=== PATIENT | female | born 1960 | race Caucasian/White ===

== ENCOUNTER → 2023-12-31 09:10 | Outpatient (REF) | payer BC, SELFPAY ==
[2023-12-31 09:27] VITALS: BP 128/64; BP_SYST 104
[2023-12-31 10:30] VITALS: BP 120/63; BP_SYST 103
[2023-12-31 10:42] VITALS: BP 120/63
[2023-12-31 11:44] LABS: Body Fluid Mononuclear 93.7 %; Body Fluid Polymorphonuclear 6.3 %; Body Fluid WBC 110 /CUMM
[2023-12-31 11:58] LABS: Body Fluid Second Tech SD
== END ==
LOC: RADI 09:10
PROVIDERS: ATTENDING PHYSICIAN Internal Medicine Gastroenterology; FAMILY PHYSICIAN Internal Medicine; REFERRING PHYSICIAN Internal Medicine Cardiovascular Disease
DX: R18.8 Other ascites (principal)
CPT/HCPCS: 49083; 89051

== ENCOUNTER → 2024-01-19 09:29 | Outpatient (REF) | payer BC, SELFPAY ==
[2024-01-19 09:50] LABS: % Basophils 1.3 % (0-2); % Eosinophils 6.4 % (0-6); % Immature Granulocytes 0.4 % (0-0.5); % Lymphocytes 16.7 % (20.5-51.1); % Monocytes 9.3 % (1.7-9.3); % Neutrophils 65.9 % (42.2-75.2); Absolute Basophils 0.1 10^3/uL (0-0.2); Absolute Eosinophils 0.5 10^3/uL (0-0.7); Absolute Lymphocytes 1.4 10^3/uL (1.2-3.4); Absolute Monocytes 0.8 10^3/uL (0.1-0.6); Absolute Neutrophils 5.4 10^3/uL (1.4-6.5); Hematocrit 24.6 % (37.0-47.0); Hemoglobin 7.7 g/dL (12.0-16.0); Mean Corp Hgb Conc. 31.3 g/dL (33.0-37.0); Mean Corpuscular Hgb 25.7 pg (27.0-31.0); Mean Platelet Volume 9.2 fL (7.4-10.4); Nucleated Red Blood Cells % 0 %; Platelet Count 212 10^3/uL (130-400); Red Cell Dist. Width 17.4 % (11.5-14.5); White Blood Cell Count 8.2 10^3/uL (4.8-10.8)
[2024-01-19 10:16] LABS: Blood Urea Nitrogen 16 mg/dl (7-17); Calcium 9.4 mg/dl (8.4-10.2); Carbon Dioxide 25 mmol/L (22-30); Chloride 106 mmol/L (98-107); Glucose 127 mg/dl (70-99); Iron 36 ug/dl (37-170); Potassium 3.7 mmol/L (3.5-5.1); Sodium 135 mmol/L (135-145); eGFR > 60.00
[2024-01-19 10:25] LABS: Percent Saturation 9 % (20-50); Total Iron Binding Capacity 400 ug/dl (265-497)
== END ==
LOC: REG 09:29
PROVIDERS: ATTENDING PHYSICIAN Internal Medicine Gastroenterology; FAMILY PHYSICIAN Internal Medicine; REFERRING PHYSICIAN Internal Medicine Hematology & Oncology
DX: D50.9 Iron deficiency anemia, unspecified (principal); D47.2 Monoclonal gammopathy; K74.60 Unspecified cirrhosis of liver
CPT/HCPCS: 36415; 80048; 82728; 83540; 83550; 85025

== ENCOUNTER 2024-01-22 15:36 | Emergency (ER) | payer BC, SELFPAY ==
[2024-01-22 15:45] VITALS: BP 140/57
--- NOTE | 2024-01-22 16:54 | ED.GENMED ---
History of Present Illness
General
Chief Complaint: Abdominal Symptoms
Time Seen by Provider: 01/22/24 16:54
Travel History
Have you had any contact with someone who has COVID-19?: No
Do you have any symptoms of coronavirus? Fever > 100 degrees, chills, cough, shortness of breath, sore throat, loss of taste or smell, muscle aches, or headache?: No
History of Present Illness
History of Present Illness:
HPI: The patient presents with abdominal discomfort. She has a sensation of bloating which feels very similar to the time that she has required paracentesis for ascites. She has a history of FONG. She is also chronically anemic. She also
recently had a TAVR at [facility].
EXAM:
GENERAL: Well appearing in no distress
HEENT: Moist oral mucosa
CARDIOVASCULAR: No murmurs, normal heart rate and rhythm, No chest wall tenderness
PULMONARY: No respiratory distress, breath sounds are clear and equal
ABDOMEN: Soft with no peritoneal signs, however there is a fluid wave consistent with ascites which is at least moderate, minimal tenderness
NEUROLOGIC: Excellent strength all extremities, no coordination deficits
PSYCHIATRIC: Appropriate mental status, normal insight and judgement
EXTREMITIES: Nontender, no edema, moves all extremities equally
SKIN: No rash, no lesions
ED COURSE:
5 PM: I initially evaluated patient
NUMBER AND COMPLEXITY OF PROBLEMS ADDRESSED AT THE ENCOUNTER
� Chronic conditions affecting care: FONG / ascites, esophageal varices, aortic stenosis status post recent TAVR
� Acute Exacerbation and/or Progression of Chronic Illness: This is an acute but recurring problem
� Differential Diagnosis includes: Abdominal ascites, worsening liver disease, pancreatitis
AMOUNT AND/OR COMPLEXITY OF DATA TO BE REVIEWED AND ANALYZED
� I performed an independent evaluation of and my interpretation is:
EKG:
CT:
X-rays:
Laboratory Studies: White count normal hemoglobin 7.6 similar to recent prior, chemistries relatively unremarkable without significant change
Other:
� Review of other/old records: Hemoglobin from a few days ago was 7.7
� Clinical information was obtained by an independent historian: None needed
� Prescriptions/Medications Considered but not given:
� Further testing considered but not performed: No imaging performed as she clearly has abdominal ascites on exam
RISK OF COMPLICATIONS AND/OR MORBIDITY OR MORTALITY OF PATIENT MANAGEMENT
� Social determinants of health affecting care: Lives at home, has a daughter nearby
� Discussion with other providers: I initially spoke to Dr. Trevino however he was not immediately available to perform paracentesis at this time. I spoke to Dr. Hernandez covering for Dr. Lees are trying to arrange for
outpatient paracentesis.
� Escalation of care including admission/observation vs risk of discharge considered: Although she has evidence of ascites on exam, her abdomen is soft and there is no tense ascites. Although she is anemic, she does have chronic
anemia with no significant drop since a few days ago.
Past History
Past History
ED Past Medical History: GERD, HTN, Hypercholesterolemia, IDDM, Valvular disease, Hypothyroidism and Other (Pulmonary fibrosis, FONG , Varices of the esophagus, Hiatal hernia)
ED Past Surgical History: Cardiac (TAVR. )
Social History
Tobacco: Non-smoker
Alcohol: Occasional
Drug: None
Personal:
Living: alone
Phy Exam
Physical Exam
Physical Exam:
See HPI
Course
Orders/Labs/Results
Orders:
Orders
01/22/24 17:11
CBC/With Diff [Complete Blood Count/With Diff] Urgent
NT-proBNP Urgent
01/22/24 17:40
Comprehensive Metabolic Panel Urgent
Lipase Urgent
Abnormal Lab Results
01/22/24 01/22/24
17:11 17:40
RBC 2.96 L 10^6/uL
(4.20-5.40)
Hgb 7.6 L g/dL
(12.0-16.0)
Hct 24.4 L %
(37.0-47.0)
MCH 25.7 L pg
(27.0-31.0)
MCHC 31.1 L g/dL
(33.0-37.0)
RDW 17.6 H %
(11.5-14.5)
Absolute Monos (auto) 0.9 H 10^3/uL
(0.1-0.6)
Lymphocytes % 14.1 L %
(20.5-51.1)
Monocytes % 10.9 H %
(1.7-9.3)
Eosinophils % 6.8 H %
(0-6)
Glucose 118 H mg/dl
(70-99)
AST 85 H U/L
(14-36)
Albumin 2.9 L g/dl
(3.5-5.0)
01/22/24 17:11
01/22/24 17:40
Vital Signs
Initial and Last Documented VS:
Initial Vital Signs
Temp Pulse Resp BP Pulse Ox
98.3 F 83 18 140/57 94
01/22/24 15:45 01/22/24 15:45 01/22/24 15:45 01/22/24 15:45 01/22/24 15:45
Last Documented Vital Signs
Temp Pulse Resp BP Pulse Ox
98.3 F 85 25 104/58 92
01/22/24 15:45 01/22/24 19:30 01/22/24 19:30 01/22/24 19:00 01/22/24 19:30
*Critical Care Note
Total Time (30-74mins, 75-104mins- exclusive of procedures): Not Applicable
ED Attending Note
-
Portions of this chart may have been created with voice recognition software.� Occasional wrong word or��sound alike� substitutions may have occurred due to the inherent limitations of voice recognition software.
Discharge Plan
Departure
Patient Disposition: Home (Routine Discharge)
Date of Disposition: 01/22/24
Time of Disposition: 19:16
Patient with high blood pressure during this ER visit?: Yes
Discharge Problem:
Abdominal ascites
Instructions: Fluid in the belly (ascites), Abdominal Pain
Prescriptions:
No Action
aspirin 81 MG tablet,delayed release (DR/EC)
81 mg PO DAILY
carvedilol 6.25 MG tablet
3.125 mg PO BID
Patient Comments:
on hold d/t low bp
pantoprazole 40 MG tablet,delayed release (DR/EC)
40 mg PO DAILY
ipratropium-albuterol 0.5 mg-3 mg(2.5 mg base)/3 mL Solution For Nebulization
3 ml INHALATION R Q6HPRN PRN (Reason: sob)
cyanocobalamin (vitamin B-12) 1,000 mcg Tablet
1,000 mcg PO HS
therapeutic multivitamin Tablet
1 tab PO HS
gabapentin 300 mg Capsule
300 mg PO HS
levothyroxine 112 mcg Tablet
112 mcg PO MOTUWETHFRSA
insulin lispro [Humalog KwikPen Insulin] 100 unit/mL Insulin Pen
12 unit SC ACHS
rosuvastatin 10 mg Tablet
10 mg PO QPM
Janumet 50-1,000 mg Tablet
1 tab PO BID@0800,1700
Arnuity Ellipta 100 mcg/actuation Blister With Device
1 inh INHALATION R DAILY
Gemtesa 75 mg Tablet
75 mg PO DAILY
Hair, Skin and Nails (biotin) 10,000 mcg Tablet,Chewable
10,000 mcg PO HS
levothyroxine [Synthroid] 112 mcg Tablet
224 mcg PO MCCLAIN
midodrine 5 mg Tablet
5 mg PO TID@0800,1300,1800 30 Days Qty: 90 0RF
estradiol 0.01 % (0.1 mg/gram) Cream
1 appful VAGINAL SUTH
albuterol sulfate 90 mcg/actuation Hfa Aerosol Inhaler
2 puff INHALATION R Q4HPRN PRN (Reason: sob)
insulin glargine [Lantus Solostar U-100 Insulin] 100 unit/mL (3 mL) Insulin Pen
10 - 12 unit SC HS PRN (Reason: blood sugar)
CoQ-10
400 mg PO HS
furosemide [Lasix] 20 mg tablet
20 mg PO DAILY
Rx Instructions:
on hold d/t low bp
Referrals:
Alea Rice MD [Active] - Tomorrow
Sally Taylor NP [Family Provider] -
Activity Restrictions/Additional Instructions:
Unfortunately, there is nobody from interventional radiology to perform abdominal paracentesis at this time. I therefore spoke to one of the GI doctors with Dr. Seth Hernandez. She wants you to call their office in the morning and I am sending
them note now hoping they can expedite outpatient paracentesis. Return here if worse.
Interventions
Interventions:
*Risk Screen - Suicide Last Done: 01/22/24 15:45
*General Assessment Last Done: 01/22/24 15:45
*Neglect/Abuse Screening Last Done: 01/22/24 15:45
ED- Fall Risk Assessment Last Done: 01/22/24 17:45
EB-Xvdgni-Dcunlcrygf Assessment Last Done: 01/22/24 17:45
[2024-01-22 17:10] VITALS: BP 121/64
[2024-01-22 17:20] LABS: % Basophils 1.5 % (0-2); % Eosinophils 6.8 % (0-6); % Immature Granulocytes 0.4 % (0-0.5); % Lymphocytes 14.1 % (20.5-51.1); % Monocytes 10.9 % (1.7-9.3); % Neutrophils 66.3 % (42.2-75.2); Absolute Basophils 0.1 10^3/uL (0-0.2); Absolute Eosinophils 0.6 10^3/uL (0-0.7); Absolute Lymphocytes 1.2 10^3/uL (1.2-3.4); Absolute Monocytes 0.9 10^3/uL (0.1-0.6); Absolute Neutrophils 5.4 10^3/uL (1.4-6.5); Hematocrit 24.4 % (37.0-47.0); Hemoglobin 7.6 g/dL (12.0-16.0); Mean Corp Hgb Conc. 31.1 g/dL (33.0-37.0); Mean Corpuscular Hgb 25.7 pg (27.0-31.0); Mean Corpuscular Volume 82.4 fL (81.0-99.0); Mean Platelet Volume 9.6 fL (7.4-10.4); Nucleated Red Blood Cells % 0 %; Platelet Count 225 10^3/uL (130-400); Red Blood Cell Count 2.96 10^6/uL (4.20-5.40); Red Cell Dist. Width 17.6 % (11.5-14.5); White Blood Cell Count 8.2 10^3/uL (4.8-10.8)
[2024-01-22 17:41] LABS: NT-proBNP 347 pg/ml
[2024-01-22 18:00] VITALS: BP 113/68
[2024-01-22 18:04] LABS: ALT (SGPT) 27 U/L (0-35); AST (SGOT) 85 U/L (14-36); Albumin 2.9 g/dl (3.5-5.0); Alkaline Phosphatase 103 U/L (38-126); Blood Urea Nitrogen 17 mg/dl (7-17); Calcium 9.2 mg/dl (8.4-10.2); Carbon Dioxide 27 mmol/L (22-30); Chloride 103 mmol/L (98-107); Glucose 118 mg/dl (70-99); Potassium 4.1 mmol/L (3.5-5.1); Sodium 135 mmol/L (135-145); Total Bilirubin 0.9 mg/dl (0.2-1.3); Total Protein 6.7 g/dl (6.3-8.2); eGFR > 60.00
[2024-01-22 18:11] LABS: Lipase 203 U/L (23-300)
[2024-01-22 19:00] VITALS: BP 104/58
== END 2024-01-22 19:56 | disposition home or self-care (01) ==
LOC: EMR 15:36
PROVIDERS: EMERGENCY PHYSICIAN Emergency Medicine; FAMILY PHYSICIAN Internal Medicine
DX: R18.8 Other ascites (principal); I10 Essential (primary) hypertension; D64.9 Anemia, unspecified
CPT/HCPCS: 99283; 80053; 83690; 83880; 85025

== ENCOUNTER → 2024-01-28 12:11 | Outpatient (REF) | payer BC, SELFPAY ==
[2024-01-28 12:28] VITALS: BP 143/59; BP_SYST 98
[2024-01-28 13:36] VITALS: BP 129/94; BP_SYST 94
[2024-01-28 14:39] LABS: Body Fluid Mononuclear 91.1 %; Body Fluid Polymorphonuclear 8.9 %; Body Fluid WBC 157 /CUMM
[2024-01-28 14:42] LABS: Body Fluid Second Tech SD
== END ==
LOC: RADI 12:11
PROVIDERS: ATTENDING PHYSICIAN Physician Assistant; FAMILY PHYSICIAN Internal Medicine
DX: R18.8 Other ascites (principal)
CPT/HCPCS: 49083; 89051

== ENCOUNTER → 2024-01-28 15:55 | Outpatient (REF) | payer BC, SELFPAY ==
[2024-01-28 09:38] LABS: % Basophils 1.5 % (0-2); % Eosinophils 6.3 % (0-6); % Immature Granulocytes 0.2 % (0-0.5); % Lymphocytes 16.8 % (20.5-51.1); % Monocytes 11.9 % (1.7-9.3); % Neutrophils 63.3 % (42.2-75.2); Absolute Basophils 0.1 10^3/uL (0-0.2); Absolute Eosinophils 0.6 10^3/uL (0-0.7); Absolute Lymphocytes 1.5 10^3/uL (1.2-3.4); Absolute Neutrophils 5.5 10^3/uL (1.4-6.5); Hematocrit 24.2 % (37.0-47.0); Hemoglobin 7.6 g/dL (12.0-16.0); Mean Corp Hgb Conc. 31.4 g/dL (33.0-37.0); Mean Corpuscular Hgb 25.6 pg (27.0-31.0); Mean Corpuscular Volume 81.5 fL (81.0-99.0); Mean Platelet Volume 9.8 fL (7.4-10.4); Nucleated Red Blood Cells % 0 %; Platelet Count 214 10^3/uL (130-400); Red Blood Cell Count 2.97 10^6/uL (4.20-5.40); Red Cell Dist. Width 18.5 % (11.5-14.5); White Blood Cell Count 8.7 10^3/uL (4.8-10.8)
[2024-01-28 10:06] LABS: Vitamin D, 25-OH*** 39.8 ng/mL (30-80)
== END ==
LOC: OIDL 15:55
PROVIDERS: ATTENDING PHYSICIAN Internal Medicine Gastroenterology
DX: D50.9 Iron deficiency anemia, unspecified (principal); D47.2 Monoclonal gammopathy
CPT/HCPCS: 82306; 85025

== ENCOUNTER 2024-01-30 06:25 | Day surgery (SDC) | payer BC, SELFPAY ==
[2024-01-30 08:32] VITALS: BP 123/64
[2024-01-30 08:39] VITALS: BMI 24.4
[2024-01-30 08:41] VITALS: BMI 24.4
[2024-01-30 09:00] LABS: Glucose - Point of Care 136 mg/dl (70-99)
[2024-01-30 09:37] VITALS: BP 106/67
[2024-01-30 09:40] VITALS: BP 106/67
[2024-01-30 09:45] VITALS: BP 118/64
[2024-01-30 10:00] VITALS: BP 114/63
[2024-01-30 10:15] VITALS: BP 121/58
== END 2024-01-30 10:36 | disposition home or self-care (01) ==
LOC: GI 06:25
PROVIDERS: ATTENDING PHYSICIAN Internal Medicine Gastroenterology
DX: D50.9 Iron deficiency anemia, unspecified (principal); K31.89 Other diseases of stomach and duodenum; K76.6 Portal hypertension; K31.819 Angiodysplasia of stomach and duodenum without bleeding; K31.7 Polyp of stomach and duodenum; I85.00 Esophageal varices without bleeding
CPT/HCPCS: 43235; 82962

== ENCOUNTER → 2024-02-04 11:46 | Outpatient (REF) | payer BC, SELFPAY ==
[2024-02-04 14:38] LABS: Free T4 2.61 ng/dl (0.78-2.19)
[2024-02-04 14:50] LABS: Glycohemoglobin (HgbA1c) 5.6 % (4.0-5.6)
[2024-02-04 14:52] LABS: TSH 4.68 uIU/ml (0.47-4.68)
[2024-02-04 15:37] LABS: ALT (SGPT) 27 U/L (0-35); AST (SGOT) 69 U/L (14-36); Albumin 3.1 g/dl (3.5-5.0); Alkaline Phosphatase 148 U/L (38-126); Blood Urea Nitrogen 18 mg/dl (7-17); Calcium 9.6 mg/dl (8.4-10.2); Carbon Dioxide 29 mmol/L (22-30); Chloride 100 mmol/L (98-107); Glucose 107 mg/dl (70-99); Sodium 135 mmol/L (135-145); Total Bilirubin 0.9 mg/dl (0.2-1.3); Total Protein 7.2 g/dl (6.3-8.2); eGFR 56.11
[2024-02-04 15:42] LABS: Potassium 3.9 mmol/L (3.5-5.1)
== END ==
LOC: REG 11:46
PROVIDERS: ATTENDING PHYSICIAN Internal Medicine Endocrinology, Diabetes & Metabolism; FAMILY PHYSICIAN Internal Medicine; OTHER PHYSICIAN Internal Medicine Cardiovascular Disease; REFERRING PHYSICIAN Physician Assistant
DX: E11.9 Type 2 diabetes mellitus without complications (principal); K74.60 Unspecified cirrhosis of liver
CPT/HCPCS: 36415; 80053; 83036; 84439; 84443

== ENCOUNTER → 2024-03-04 11:42 | Outpatient (REF) | payer BC, SELFPAY ==
[2024-03-04 12:30] LABS: % Basophils 1.4 % (0-2); % Eosinophils 7.1 % (0-6); % Immature Granulocytes 0.3 % (0-0.5); % Lymphocytes 16.9 % (20.5-51.1); % Monocytes 12.7 % (1.7-9.3); % Neutrophils 61.6 % (42.2-75.2); Absolute Basophils 0.1 10^3/uL (0-0.2); Absolute Eosinophils 0.7 10^3/uL (0-0.7); Absolute Lymphocytes 1.6 10^3/uL (1.2-3.4); Absolute Monocytes 1.2 10^3/uL (0.1-0.6); Absolute Neutrophils 5.7 10^3/uL (1.4-6.5); Hematocrit 26.6 % (37.0-47.0); Hemoglobin 8.3 g/dL (12.0-16.0); Mean Corp Hgb Conc. 31.2 g/dL (33.0-37.0); Mean Corpuscular Volume 99.3 fL (81.0-99.0); Mean Platelet Volume 9.7 fL (7.4-10.4); Nucleated Red Blood Cells % 0 %; Platelet Count 164 10^3/uL (130-400); Red Blood Cell Count 2.68 10^6/uL (4.20-5.40); Red Cell Dist. Width 23.8 % (11.5-14.5); White Blood Cell Count 9.2 10^3/uL (4.8-10.8)
[2024-03-04 12:40] LABS: APTT 29.7 Sec (23.4-35.0); INR 1.22; PT 15.2 Sec (11.4-14.6)
[2024-03-04 12:55] LABS: Normal RBC Morphology No
[2024-03-04 12:58] LABS: Anisocytosis 1+; Hypochromasia 1+; Polychromasia 1+
[2024-03-04 12:59] LABS: Acanthocytes FEW; Ovalocytes 1+
[2024-03-04 13:00] LABS: Target Cells FEW
[2024-03-04 13:15] LABS: Iron 73 ug/dl (37-170)
[2024-03-04 13:25] LABS: Percent Saturation 17 % (20-50); Total Iron Binding Capacity 426 ug/dl (265-497)
[2024-03-06 23:00] LABS: Albumin 3.28 g/dL (3.75-5.01); Alpha 1 Globulin 0.38 g/dL (0.19-0.46); Free Kappa Light Chains,Quant 161.59 mg/L (3.30-19.40); Free Lambda Light Chains,Quant 88.94 mg/L (5.71-26.30); IgA 884 mg/dL (68-408); IgG 1740 mg/dL (768-1632); IgM 91 mg/dL (35-263); Immunofixation Electrophoresis IFE Done; Kappa/Lambda Fr Light Ratio 1.82 (0.26-1.65); Total Protein-Electrophoresis 7.5 g/dL (6.3-8.2)
== END ==
LOC: REG 11:42
PROVIDERS: ATTENDING PHYSICIAN Nurse Practitioner Primary Care; FAMILY PHYSICIAN Internal Medicine
DX: D50.9 Iron deficiency anemia, unspecified (principal); D47.2 Monoclonal gammopathy; E11.65 Type 2 diabetes mellitus with hyperglycemia; R04.0 Epistaxis
CPT/HCPCS: 36415; 82728; 82784; 83521; 83540; 83550; 84155; 84165; 85025; 85610; 85730; 86334

== ENCOUNTER → 2024-03-05 08:40 | Outpatient (REF) | payer BC, SELFPAY | LOC: MRI 08:40 | PROVIDERS: ATTENDING PHYSICIAN Internal Medicine Gastroenterology; FAMILY PHYSICIAN Internal Medicine | DX: K75.81 Nonalcoholic steatohepatitis (NASH) (principal) | CPT/HCPCS: 74183; A9581 ==

== ENCOUNTER 2024-03-24 21:22 | Inpatient (IN) | payer MEDICARE, BC, SELFPAY ==
[2024-03-24] VITALS (9 sets, daily range): BP systolic 105–123; BP diastolic 46–56; BMI 21.9
--- NOTE | 2024-03-24 13:40 | ED.GENMED ---
History of Present Illness
General
Chief Complaint: Breathing Problem
Time Seen by Provider: 03/24/24 13:05
Travel History
Have you had any contact with someone who has COVID-19?: No
Do you have any symptoms of coronavirus? Fever > 100 degrees, chills, cough, shortness of breath, sore throat, loss of taste or smell, muscle aches, or headache?: No
History of Present Illness
History of Present Illness:
63-year-old female history of pulmonary fibrosis on 3 L nasal cannula as needed with exertion, CHF on Lasix 20 mg, FONG on spironolactone, TAVR 3 months ago presenting with worsening shortness of breath over the past 1 to 2 weeks. Patient states
that she typically wears 3 L nasal cannula as needed for exertion but notes that she is requiring even during rest over the past 1 to 2 weeks. Daughter at bedside states that patient's physical therapist called her today stating that patient's SpO2
dropping to 70s% on 3L NC on exertion. Patient reports chronic cough unchanged from baseline. Patient denies chest pain, fever, chills, abdominal pain/distention, or lower extremity swelling. Daughter states that patient is lost 15 to 20 pounds
over the past 2 to 3 weeks.
Past History
Past History
ED Past Medical History: GERD, HTN, Hypercholesterolemia, IDDM, Valvular disease, Hypothyroidism and Other (Pulmonary fibrosis, FONG , Varices of the esophagus, Hiatal hernia)
ED Past Surgical History: Cardiac (TAVR. )
Social History
Tobacco: Non-smoker
Alcohol: Occasional
Drug: None
Personal:
Living: alone
Phy Exam
Physical Exam
Physical Exam:
General: Alert, no acute distress, thin appearing
Head: NCAT
Eyes: clear conjunctiva
Neck: supple
Cardiac: regular rate and rhythm, no murmur
Lungs: clear to auscultation bilaterally. Faint rales bilateral bases. No wheezing or rhonchi. Speaking full unlabored sentences. No respiratory distress. Currently on 3 L nasal cannula, no tachypnea
Abdomen: soft, nondistended nontender. No rebound or guarding.
MSK: no lower extremity edema bilaterally. No deformity
Skin: warm, dry
Neuro: Alert and oriented x3. no focal deficits
Scores
Heart Failure Risk
Heart Failure Risk Score: Not Applicable
Course
Orders/Labs/Results
Orders:
Orders
03/24/24 13:39
CXR2 [CR Chest - 2 Views ] Urgent
Comment:
Reason For Exam: sob
03/24/24 13:58
CBC/With Diff [Complete Blood Count/With Diff] Urgent
CMP [Comprehensive Metabolic Panel] Urgent
Lactic Acid Urgent
NT-proBNP Urgent
Protime/PTT Urgent
Troponin I Urgent
03/24/24 16:17
UA Reflex to Culture [Urinalysis Reflex To Culture] Urgent
Date Specimen was Collected: 03/24/24
Time Specimen was Collected: 16:16
03/24/24 18:13
CT Chest Pe Study Urgent
Reason For Exam: sob, r/o pe
03/24/24 19:58
Furosemide [Lasix] 20 mg IV NOW STA
03/24/24 20:10
EKG [Electrocardiogram (*1)] Urgent
Reason for Study: Shortness of Breath
EKG- Treatment ONCE
Abnormal Lab Results
03/24/24
13:58
RBC 2.74 L 10^6/uL
(4.20-5.40)
Hgb 8.6 L g/dL
(12.0-16.0)
Hct 26.5 L %
(37.0-47.0)
MCH 31.4 H pg
(27.0-31.0)
MCHC 32.5 L g/dL
(33.0-37.0)
RDW 17.1 H %
(11.5-14.5)
Absolute Monos (auto) 1.4 H 10^3/uL
(0.1-0.6)
Lymphocytes % 13.1 L %
(20.5-51.1)
Monocytes % 13.8 H %
(1.7-9.3)
Eosinophils % 7.1 H %
(0-6)
PT 14.8 H Sec
(11.4-14.6)
BUN 29 H mg/dl
(7-17)
Creatinine 1.1 H mg/dL
(0.6-1.0)
Lactic Acid 3.5 H mmol/L
(0.7-2.0)
Calcium 10.7 H mg/dl
(8.4-10.2)
AST 83 H U/L
(14-36)
ALT 40 H U/L
(0-35)
03/24/24 13:58
03/24/24 13:58
Vital Signs
Initial and Last Documented VS:
Initial Vital Signs
Temp Pulse Resp BP Pulse Ox
98.2 F 78 16 114/49 87
03/24/24 12:53 03/24/24 12:53 03/24/24 12:53 03/24/24 12:53 03/24/24 12:53
Last Documented Vital Signs
Temp Pulse Resp BP Pulse Ox
98.2 F 80 15 123/54 99
03/24/24 12:53 03/24/24 20:05 03/24/24 18:45 03/24/24 20:05 03/24/24 18:45
MDM/Problems Addressed
MDM/Problems Addressed:
Patient presents to the Emergency Department with ___shortness of breath
Number and Complexity of Problems Addressed at the Encounter
� Chronic conditions affecting care: Pulmonary fibrosis, CHF, FONG
� Acute Exacerbation and/or Progression of Chronic Illness:
� Differential Diagnosis includes: CHF, pneumonia, anemia, NSTEMI, progression of pulmonary fibrosis
Amount and/or Complexity of Data to be Reviewed and Analyzed
� I performed an independent evaluation of and my interpretation is:
EKG:
CT:
Xrays: CXR shows no acute consolidation or focal infiltrate
Laboratory Studies: chronic anemia with hemoglobin 8.6 (baseline), elevated lactic acid at 3.4 (possibly from known liver disease), UA negative for UTI
Other:
� Review of other/old records reveals:
� Clinical information was obtained by an independent historian:
� Prescriptions/Medications Considered but not given:
� Further testing considered but not performed:
Risk of Complications and/or Morbidity or Mortality of Patient Management
� Social Determinants of health affecting care:
� Discussion with other providers (PCP, Hospitalists, Consultants, etc):
� Escalation of care including admission/observation vs risk of discharge considered: 63-year-old female history of pulmonary fibrosis on 3 L nasal cannula only with exertion, CHF, hypertension, hyperlipidemia presenting with increased shortness of
breath now requiring oxygen at rest, generalized fatigue. Daughter states that when patient was doing physical therapy, SpO2 went down to 70s on nasal cannula. Patient states she typically does not use oxygen at rest. Chest x-ray negative.
Hemoglobin 8.6 (baseline). Lactic acid 3.5 which could be related to FONG. Troponin negative. proBNP 78. UA negative for UTI. On reevaluation, I attempted to ambulate patient with nasal cannula on. Patient became hypoxic to 86% even on 6 L
with walking around the bed. Ordered CTA rule out PE. CTA chest reviewed, no PE but does show mild pulmonary edema. Ordered Lasix 20mg IV. Discussed with hospitalist who accepted for admission
*Critical Care Note
Total Time (30-74mins, 75-104mins- exclusive of procedures): Not Applicable
ED Attending Note
-
Portions of this chart may have been created with voice recognition software.� Occasional wrong word or��sound alike� substitutions may have occurred due to the inherent limitations of voice recognition software.
Discharge Plan
Departure
Patient Disposition: Admit
Date of Disposition: 03/24/24
Time of Disposition: 20:08
Admit to: Telemetry
Presentation/result/management discussed w/ accepting MD/DO: Hospitalist
Discharge Problem:
Shortness of breath
Prescriptions:
No Action
aspirin 81 MG tablet,delayed release (DR/EC)
81 mg PO DAILY
therapeutic multivitamin Tablet
1 tab PO HS
gabapentin 300 mg Capsule
300 mg PO HS
levothyroxine 112 mcg Tablet
112 mcg PO MOTUWETHFRSA
rosuvastatin 10 mg Tablet
10 mg PO QPM
Janumet 50-1,000 mg Tablet
1 tab PO BID@0800,1700
Arnuity Ellipta 100 mcg/actuation Blister With Device
1 inh INHALATION R DAILY
Gemtesa 75 mg Tablet
75 mg PO DAILY
albuterol sulfate 90 mcg/actuation Hfa Aerosol Inhaler
2 puff INHALATION R Q6HPRN PRN (Reason: sob)
coQ10 (ubiquinol) 100 mg Capsule
100 mg PO DAILY
midodrine 5 mg tablet
5 mg PO BID
thiamine HCl (vitamin B1) 100 mg Tablet
100 mg PO DAILY
ipratropium-albuterol [DuoNeb] 0.5 mg-3 mg(2.5 mg base)/3 mL Solution For Nebulization
3 ml INHALATION R Q6HPRN PRN (Reason: sob)
famotidine [Pepcid] 40 mg Tablet
40 mg PO DAILY
lorazepam 0.5 mg Tablet
0.5 mg PO DAILYPRN PRN (Reason: anxiety)
furosemide [Lasix] 20 mg Tablet
20 mg PO DAILY
spironolactone 50 mg Tablet
50 mg PO DAILY
levothyroxine [Synthroid] 112 mcg Tablet
224 mcg PO MCCLAIN
bupropion HCl [Wellbutrin XL] 150 mg Tablet Extended Release 24 Hr
150 mg PO DAILY
lactulose 10 gram/15 mL Solution
10 g PO DAILY@1400
Xifaxan 550 mg Tablet
550 mg PO BID
Referrals:
Sally Taylor NP [Family Provider] -
Interventions
Interventions:
*Risk Screen - Suicide Last Done: 03/24/24 13:04
*General Assessment Last Done: 03/24/24 13:04
*Neglect/Abuse Screening Last Done: 03/24/24 13:04
*ED COVID-19 Vaccine History Last Done: 03/24/24 13:04
ED- Cardiac Assessment Last Done: 03/24/24 13:10
ED- Pulmonary Assessment Last Done: 03/24/24 13:10
Discharge Date and Time
Print Language: SERBIAN
[2024-03-24 14:11] LABS: % Basophils 1.4 % (0-2); % Eosinophils 7.1 % (0-6); % Immature Granulocytes 0.4 % (0-0.5); % Lymphocytes 13.1 % (20.5-51.1); % Monocytes 13.8 % (1.7-9.3); % Neutrophils 64.2 % (42.2-75.2); Absolute Basophils 0.1 10^3/uL (0-0.2); Absolute Eosinophils 0.7 10^3/uL (0-0.7); Absolute Lymphocytes 1.3 10^3/uL (1.2-3.4); Absolute Monocytes 1.4 10^3/uL (0.1-0.6); Absolute Neutrophils 6.4 10^3/uL (1.4-6.5); Hematocrit 26.5 % (37.0-47.0); Hemoglobin 8.6 g/dL (12.0-16.0); Mean Corp Hgb Conc. 32.5 g/dL (33.0-37.0); Mean Corpuscular Hgb 31.4 pg (27.0-31.0); Mean Corpuscular Volume 96.7 fL (81.0-99.0); Nucleated Red Blood Cells % 0 %; Platelet Count 161 10^3/uL (130-400); Red Blood Cell Count 2.74 10^6/uL (4.20-5.40); Red Cell Dist. Width 17.1 % (11.5-14.5)
[2024-03-24 14:26] LABS: INR 1.18; PT 14.8 Sec (11.4-14.6)
[2024-03-24 14:27] LABS: APTT 28.4 Sec (23.4-35.0)
[2024-03-24 14:29] LABS: ALT (SGPT) 40 U/L (0-35); AST (SGOT) 83 U/L (14-36); Albumin 3.8 g/dl (3.5-5.0); Alkaline Phosphatase 104 U/L (38-126); Blood Urea Nitrogen 29 mg/dl (7-17); Calcium 10.7 mg/dl (8.4-10.2); Carbon Dioxide 23 mmol/L (22-30); Chloride 105 mmol/L (98-107); Estimated Creatinine Clearance 45 ml/min; Glucose 91 mg/dl (70-99); Potassium 4.4 mmol/L (3.5-5.1); Sodium 138 mmol/L (135-145); Total Bilirubin 0.5 mg/dl (0.2-1.3); Total Protein 7.6 g/dl (6.3-8.2); eGFR 56.11
[2024-03-24 14:41] LABS: NT-proBNP 78.3 pg/ml; Troponin I < 0.012 ng/ml
[2024-03-24 14:55] LABS: Lactic Acid 3.5 mmol/L (0.7-2.0)
[2024-03-24 16:26] LABS: Urine Albumin Negative (Neg - Trace); Urine Bilirubin Negative (Negative); Urine Character Clear (Clear); Urine Color Yellow; Urine Glucose Negative (Negative); Urine Ketone Negative (Negative); Urine Leukocyte Negative (Negative); Urine Nitrite Negative (Negative); Urine Occult Blood Negative (Negative); Urine Specific Gravity 1.015 (<1.030); Urine Urobilinogen Negative (Neg - 1+)
[2024-03-24] MEDS: LASIX 20 MG IV (20:05)
--- NOTE | 2024-03-24 20:21 | HPS.HSE ---
Family Physician
-
Family Physician: Sally Taylor
Chief Complaint
-
SOB and weakness x 1 week
History of Present Illness
63 y/o F, hx of FONG cirrhosis, s/p TAVR, hx of HFpEF, pulmonary fibrosis on 3L, DM presents to ER with SOB and weakness x 1 week. Patient reports her usual state of health up until 1 week ago when she felt that her energy was limited at rest and
with exertion. She is on 3L baseline. She felt more SOB with ambulating. Symptoms have persisted x 1 week. At times inhalers/nebs help marginally but no significant relief. She denies any chest pain, palps, no change in chronic cough, no
fever/chills, no edema. no GI or complaints. No sick contacts.
In ER, initial workup was negative and initially planned for DC but had increase in O2 requirements to 6L NC, CT-PE study was showing mild CHF per imaging and 1 dose IV Lasix was given.
Medical History
Past Medical History
Past Medical History: Reports Other (FONG cirrhosis, s/p TAVR, hx of HFpEF, pulmonary fibrosis on 3L, DM)
Past Surgical History: Reports Cardiac (TAVR 2016, 2023) and Tonsilectomy
Social History
Tobacco: Non-smoker
Alcohol: Occasional
Drug: None
Personal:
Living: Alone
Family History
Family History: Not pertinent
Allergies / Home Medications
Allergies reflects when Allergies were last updated in [facility].
Home Medications with original date entered in [facility]
Allergy/Medication List:
Allergies
Allergy/AdvReac Type Severity Reaction Status Date / Time
nitrofurantoin Allergy Rash Verified 03/24/24 12:53
[From Macrobid]
Penicillins Allergy Rash Verified 03/24/24 12:53
Sulfa (Sulfonamide Allergy Rash Verified 03/24/24 12:53
Antibiotics)
Home Medications
aspirin 81 mg tablet,delayed release 81 mg PO DAILY Blood Clot Prevention/Tx 08/11/16
fluticasone furoate 100 mcg/actuation blister powder for inhalation (Arnuity Ellipta) 1 inh inhalation R DAILY Lung/Breathing Issues 10/30/23
gabapentin 300 mg capsule 300 mg PO HS Neurological Condition 10/30/23
levothyroxine 112 mcg tablet 112 mcg PO MOTUWETHFRSA Thyroid 10/30/23
rosuvastatin 10 mg tablet 10 mg PO QPM High Cholesterol 10/30/23
sitagliptin phosphate 50 mg-metformin 1,000 mg tablet (Janumet) 1 tab PO BID@0800,1700 Diabetes 10/30/23
therapeutic multivitamin 1 tab PO HS Supplement 10/30/23
vibegron 75 mg tablet (Gemtesa) 75 mg PO DAILY Urinary Issue 10/30/23
albuterol sulfate 90 mcg/actuation aerosol inhaler 2 puff inhalation R Q6HPRN PRN sob 11/28/23
coQ10 (ubiquinol) 100 mg capsule 100 mg PO DAILY Supplement 11/28/23
midodrine 5 mg tablet 5 mg PO BID Blood Pressure 01/30/24
thiamine HCl (vitamin B1) 100 mg tablet 100 mg PO DAILY Supplement 01/30/24
bupropion HCl 150 mg 24 hr tablet, extended release (Wellbutrin XL) 150 mg PO DAILY depression/anxiety 03/24/24
famotidine 40 mg tablet (Pepcid) 40 mg PO DAILY Gastrointestinal Issue 03/24/24
furosemide 20 mg tablet (Lasix) 20 mg PO DAILY Fluid Retention/Swelling 03/24/24
ipratropium 0.5 mg-albuterol 3 mg (2.5 mg base)/3 mL nebulization soln 3 ml inhalation R Q6HPRN PRN sob 03/24/24
lactulose 10 gram/15 mL oral solution 10 g PO DAILY@1400 liver disease/FONG 03/24/24
levothyroxine 112 mcg tablet (Synthroid) 224 mcg PO MCCLAIN Thyroid 03/24/24
lorazepam 0.5 mg tablet 0.5 mg PO DAILYPRN PRN anxiety 03/24/24
rifaximin 550 mg tablet (Xifaxan) 550 mg PO BID liver disease/FONG 03/24/24
spironolactone 50 mg tablet 50 mg PO DAILY Blood Pressure/edema 03/24/24
Review of Systems
-
A 12 point ROS was completed and negative except as noted: Yes
Physical Exam
Vital Signs
Vital Signs
Temp Pulse Resp BP Pulse Ox
98.2 F 80 15 123/54 99
03/24/24 12:53 03/24/24 20:05 03/24/24 18:45 03/24/24 20:05 03/24/24 18:45
Physical Exam
General: Appears Chronically Ill
HEENT: NormoCephalic and Anicteric
Respiratory: Rales; No Wheezes
Cardiac: S1/S2, Regular Rhythm and Murmur
Musculoskeletal: No Edema
Neuro: AO x 3
Hematologic/Lymphatic: No Lymphadenopathy
Psych: Calm
Laboratory Results
-
03/24/24 13:58
03/24/24 13:58
Laboratory Results
PT 14.8 Sec (11.4-14.6) H 03/24/24 13:58
INR 1.18 03/24/24 13:58
APTT 28.4 Sec (23.4-35.0) 03/24/24 13:58
Lactic Acid 3.5 mmol/L (0.7-2.0) H 03/24/24 13:58
Total Bilirubin 0.5 mg/dl (0.2-1.3) 03/24/24 13:58
AST 83 U/L (14-36) H 03/24/24 13:58
ALT 40 U/L (0-35) H 03/24/24 13:58
Alkaline Phosphatase 104 U/L (38-126) 03/24/24 13:58
Troponin I < 0.012 ng/ml 03/24/24 13:58
Data Reviewed
-
Diagnostic Radiology: Report Reviewed by me and Discussed with Patient
CT Scan: Report Reviewed by me and Discussed with Patient
Lab Data: Labs Reviewed by me
Impression/Plan
-
Assessment:
SOB, weakness
Acute on chronic hypoxic RF (baseline 3L, currently 6L)
- ddx: CHF vs IPF (progression vs flare). no PE on imaging
- received 1 Lasix 20mg in ER for CT chest study showing CHF but no edema, BNP low normal. Re-assess in AM for further doses of IV Lasix. Given hx of recent recent CHF admission and recent TAVR ( @ [facility]), consult Cardiology. Obtain Echo.
- pulmonary consultation to evaluate for IPF etiology
- continue home meds/nebs
- monitor O2 needs
s/p TAVR @ [facility] (previous TAVR 12/2016)
- Echo pending
- followed locally by [facility] - consulted
Pulmonary fibrosis
- continue inhalers
- not on steroids outpatient
Essential hypertension
- continue Aldactone
- holding PO Lasix
Orthostatic hypotension
- Continue midodrine BID
FONG cirrhosis/History of esophageal varices status post banding
Chronically elevated LFTs
- continue Protonix/Xifaxan/Lactulose
- OP Hepatology/GI f/u
Anemia of chronic disease
Hyperlipidemia
- hold statin
Type 2 diabetes
- continue Janumet
- SSI
- update A1c
Diabetic neuropathy/pain
- Continue gabapentin
Hypothyroidism
- Continue levothyroxine
Anxiety/depression
- Continue bupropion/Ativan
DVT ppx: SC Heparin
Code: Full
--- NOTE | 2024-03-24 22:54 | PTCARENOTE ---
Pt arrived onto floor @2254. Pt AAOx3 and a lumber puller to the bed. Pt on 3L of O2, which is her baseline -- denies SOB at this time. Pt oriented to room and call storey, will continue to monitor.
[2024-03-24] MEDS: ProAmatine 5 MG PO (23:13)
[2024-03-24] MEDS: NEURONTIN 300 MG PO (23:13)
[2024-03-24] MEDS: XIFAXAN 550 MG PO (23:13)
[2024-03-25] VITALS (7 sets, daily range): BP systolic 96–124; BP diastolic 37–49; PULSE 65–93; O2SAT 98–100; BMI 22.2
--- NOTE | 2024-03-25 00:24 | PTCARENOTE ---
Pt arrived onto floor @2254. Pt AAOx3 and a pullboat engineer to the bed. Pt on 3L of O2, which is her baseline -- denies SOB at this time. Pt oriented to room and call storey, will continue to monitor.
[2024-03-25] MEDS: ATIVAN 0.5 MG PO ×2 (02:44→21:00)
[2024-03-25] MEDS: SYNTHROID 112 MCG PO (05:28)
[2024-03-25 07:27] LABS: Glucose - Point of Care 137 mg/dl (70-99)
[2024-03-25 08:01] LABS: Hematocrit 24.6 % (37.0-47.0); Hemoglobin 7.9 g/dL (12.0-16.0); Mean Corp Hgb Conc. 32.1 g/dL (33.0-37.0); Mean Corpuscular Hgb 31.3 pg (27.0-31.0); Mean Corpuscular Volume 97.6 fL (81.0-99.0); Mean Platelet Volume 9.9 fL (7.4-10.4); Platelet Count 125 10^3/uL (130-400); Red Blood Cell Count 2.52 10^6/uL (4.20-5.40); Red Cell Dist. Width 17.2 % (11.5-14.5); White Blood Cell Count 6.5 10^3/uL (4.8-10.8)
[2024-03-25] MEDS: STRIVERDI RESPIMAT INH (08:03)
[2024-03-25] MEDS: SPIRIVA RESPIMAT 2.5 MCG INH (08:03)
[2024-03-25 08:10] LABS: ALT (SGPT) 30 U/L (0-35); AST (SGOT) 61 U/L (14-36); Albumin 3.2 g/dl (3.5-5.0); Alkaline Phosphatase 101 U/L (38-126); Blood Urea Nitrogen 29 mg/dl (7-17); Calcium 10.1 mg/dl (8.4-10.2); Carbon Dioxide 24 mmol/L (22-30); Chloride 103 mmol/L (98-107); Estimated Creatinine Clearance 41 ml/min; Glucose 114 mg/dl (70-99); Magnesium 2.1 mg/dl (1.6-2.3); Potassium 4.5 mmol/L (3.5-5.1); Sodium 136 mmol/L (135-145); Total Bilirubin 0.4 mg/dl (0.2-1.3); Total Protein 6.7 g/dl (6.3-8.2); eGFR 50.55
[2024-03-25] MEDS: NOVOLOG FLEXPEN-LOW RESISTANCE SC (08:30)
[2024-03-25 09:22] LABS: Glycohemoglobin (HgbA1c) 4.5 % (4.0-5.6)
[2024-03-25] MEDS: HEPARIN 5000 UNITS SC ×2 (09:31→19:51)
[2024-03-25] MEDS: GLUCOPHAGE 1000 MG PO ×2 (09:33→17:33)
[2024-03-25] MEDS: ProAmatine 5 MG PO ×2 (09:33→17:33)
[2024-03-25] MEDS: WELLBUTRIN XL (24 hour extended release) 150 MG PO (09:33)
[2024-03-25] MEDS: PEPCID 40 MG PO (09:34)
[2024-03-25] MEDS: ASPIR LOW (ENTERIC COATED) 81 MG PO (09:34)
[2024-03-25] MEDS: XIFAXAN 550 MG PO ×2 (09:34→19:51)
[2024-03-25] MEDS: ALDACTONE 50 MG PO (09:34)
[2024-03-25] MEDS: JANUVIA 50 MG PO ×2 (09:34→17:33)
--- NOTE | 2024-03-25 09:52 | W.PN.HOSP.TC ---
Today's Communication/Plan
-
Follow-up echocardiogram
Cardiology consult
Pulmonary consult
Assessment / Plan
Assessment / Plan
Gen-AAOx3, NAD
HEENT-NC, AT, anicteric, clear oral mm
Neck-supple
CV-reg, no M, +S1/S2
Lungs-faint Rales bilateral
Abd-soft, NT, ND
Ext-no edema
Musculoskeletal-no cyanosis, clubbing
Skin-warm and dry
Neuro-grossly non-focal
Psych-calm, cooperative
Acute on chronic hypoxic respiratory failure -suspect related to underlying interstitial pulmonary fibrosis, possible flare. Heart failure exacerbation seems less likely. Baseline uses 3 L of oxygen continuously at home, required 6 L last night.
Currently down to 3 L.
IPF
Chronic heart failure preserved EF -echocardiogram completed this morning, will follow-up report. Given a dose of IV Lasix yesterday. Can resume home doses of diuretics.
FONG cirrhosis
Acute thrombocytopenia -125k, unclear etiology. Monitor for now. Possible HIT but doubt type II.
Hepatocellular carcinoma -recently diagnosed on abdominal MRI last month. Follow-up as an outpatient. She has an appointment to see specialist this .
Aortic stenosis -second TAVR procedure done in December of this year.
Chronic iron deficiency anemia -followed by hematology, Dr. Diggs. Last iron infusion was a month ago. Hemoglobin 7.9 today, baseline appears to be around 8.
Essential hypertension -stable.
Orthostatic hypotension -on midodrine.
DM 2 without hyperglycemia -hemoglobin A1c unreliable in the setting of chronic anemia. Glucose 137 this morning. On at home.
Hyperlipidemia -continue rosuvastatin.
Hypothyroidism -continue levothyroxine.
Anxiety/depression
Chronic peripheral diabetic neuropathy
Full code
Anticipated Discharge: 24 - 48 hours
Subjective/Interval History
-
Date of Service: March 25, 2024
Patient seen and examined. Complaining of dyspnea on exertion. No dyspnea at rest.
Objective Data
-
Labs:
Laboratory Results
03/25/24
07:09
WBC 6.5
Hgb 7.9 L
Hct 24.6 L
Plt Count 125 L D
Sodium 136
Potassium 4.5
Chloride 103
Carbon Dioxide 24
BUN 29 H
Creatinine 1.2 H
Glucose 114 H
Calcium 10.1
Total Bilirubin 0.4
AST 61 H
ALT 30
Alkaline Phosphatase 101
Vital Signs:
Vital Signs
Temp Pulse Resp BP Pulse Ox
97.9 F 62 15 96/41 100
03/25/24 07:32 03/25/24 07:32 03/25/24 07:32 03/25/24 07:32 03/25/24 07:32
Review of Systems
-
History Source: Patient
All other systems: Reviewed and negative
--- NOTE | 2024-03-25 11:21 | CON.PUL ---
Consultation
Consultation Request
Date/Time Consultation Requested: 03/25/24
Date/Time Consultation Performed: 03/25/24
Performing Provider: Edmar
Reason for Consultation: SOB
Medical History
-
History of Present Illness:
63 year old F with history of FONG cirrhosis, s/p TAVR, hx of HFpEF, IPF on 3L, DM presents to ER with SOB and weakness x 1 week. Daughter is at bedside who noticed that patient has also been struggling wtih decreased PO intake, weight loss,
fatigue, lethargy wtih increasing weakness.
She was supposed to undergo opinion at [facility] for liver lesions suspected of being HCC, but never underwent w/u as it was decided she was too weak to pursue biopsy.
In ER, initial workup was negative but she had increase in O2 requirements to 6L NC, CT-PE study was showing mild CHF per imaging and 1 dose IV Lasix was given.
proBNP 78.3, lactic acid 3.5
Past Medical History
Past Medical History: Other (see list below)
Social History
Tobacco: Non-smoker
Alcohol: None
Drug: None
Family History
Family History: Reviewed & Not Pertinent
Allergies / Home Medications
Allergies
Allergy/AdvReac Type Severity Reaction Status Date / Time
nitrofurantoin Allergy Rash Verified 03/24/24 12:53
[From Macrobid]
Penicillins Allergy Rash Verified 03/24/24 12:53
Sulfa (Sulfonamide Allergy Rash Verified 03/24/24 12:53
Antibiotics)
Home Medications
�Medication �Instructions �Recorded �Confirmed �Last Taken �Type
aspirin 81 mg tablet,delayed 81 mg PO DAILY Blood Clot 08/11/16 03/24/24 03/24/24 History
release Prevention/Tx
fluticasone furoate 100 1 inh inhalation R DAILY 10/30/23 03/24/24 01/29/24 08:00 History
mcg/actuation blister powder for Lung/Breathing Issues
inhalation (Arnuity Ellipta)
gabapentin 300 mg capsule 300 mg PO HS Neurological Condition 10/30/23 03/24/24 03/23/24 History
levothyroxine 112 mcg tablet 112 mcg PO MOTUWETHFRSA Thyroid 10/30/23 03/24/24 03/24/24 History
rosuvastatin 10 mg tablet 10 mg PO QPM High Cholesterol 10/30/23 03/24/24 01/29/24 19:00 History
sitagliptin phosphate 50 1 tab PO BID@0800,1700 Diabetes 10/30/23 03/24/24 03/24/24 History
mg-metformin 1,000 mg tablet
(Janumet)
therapeutic multivitamin 1 tab PO HS Supplement 10/30/23 03/24/24 01/26/24 History
vibegron 75 mg tablet (Gemtesa) 75 mg PO DAILY Urinary Issue 10/30/23 03/24/24 03/24/24 History
albuterol sulfate 90 mcg/actuation 2 puff inhalation R Q6HPRN PRN sob 11/28/23 03/24/24 01/29/24 History
aerosol inhaler
coQ10 (ubiquinol) 100 mg capsule 100 mg PO DAILY Supplement 11/28/23 03/24/24 01/28/24 19:00 History
midodrine 5 mg tablet 5 mg PO BID Blood Pressure 01/30/24 03/24/24 03/24/24 History
thiamine HCl (vitamin B1) 100 mg 100 mg PO DAILY Supplement 01/30/24 03/24/24 01/29/24 08:00 History
tablet
bupropion HCl 150 mg 24 hr tablet, 150 mg PO DAILY depression/anxiety 03/24/24 03/24/24 Unknown History
extended release (Wellbutrin XL)
famotidine 40 mg tablet (Pepcid) 40 mg PO DAILY Gastrointestinal 03/24/24 03/24/24 Unknown History
Issue
furosemide 20 mg tablet (Lasix) 20 mg PO DAILY Fluid 03/24/24 03/24/24 03/24/24 History
Retention/Swelling
ipratropium 0.5 mg-albuterol 3 mg 3 ml inhalation R Q6HPRN PRN sob 03/24/24 03/24/24 Unknown History
(2.5 mg base)/3 mL nebulization
soln
lactulose 10 gram/15 mL oral 10 g PO DAILY@1400 liver 03/24/24 03/24/24 03/23/24 History
solution disease/FONG
levothyroxine 112 mcg tablet 224 mcg PO MCCLAIN Thyroid 03/24/24 03/24/24 03/23/24 History
(Synthroid)
lorazepam 0.5 mg tablet 0.5 mg PO DAILYPRN PRN anxiety 03/24/24 03/24/24 Unknown History
rifaximin 550 mg tablet (Xifaxan) 550 mg PO BID liver disease/FONG 03/24/24 03/24/24 03/24/24 History
spironolactone 50 mg tablet 50 mg PO DAILY Blood Pressure/edema 03/24/24 03/24/24 03/24/24 History
Review of Systems
-
History Source: Patient
All other systems: Negative unless noted
Vitals / Labs / Diagnostic Testing
Vital Signs
Temp Pulse Resp BP Pulse Ox
97.8 F 65 18 124/48 100
03/25/24 11:12 03/25/24 11:12 03/25/24 11:12 03/25/24 11:12 03/25/24 07:32
Lab Data
03/25/24 07:09
03/25/24 07:09
Laboratory Results
03/24/24
13:58
PT 14.8 H
INR 1.18
APTT 28.4
Diagnostic Testing:
Physical Exam
-
HEENT: Normocephalic, Anicteric and Moist Mucous Membranes
Cardiovascular: S1/S2 and Regular Rhythm
Respiratory: Rales (bilateral) and Non-Labored Respirations
GI: Soft, Non Distended and Non Tender
Neurology: Awake, Alert, Oriented, AO x 3, No Motor Deficits and Other (overall weak)
Skin: Warm, Dry and Good Color
General: Comfortable, Poor Appetite and Other (thin/cachectic appearing)
Assessment
-
63 year old F with history of FONG cirrhosis, s/p TAVR, hx of HFpEF, IPF on 3L, DM presents to ER with SOB and weakness x 1 week. Daughter is at bedside who noticed that patient has also been struggling wtih decreased PO intake, weight loss,
fatigue, lethargy wtih increasing weakness. She was supposed to undergo opinion at [facility] for liver lesions suspected of being HCC, but never underwent w/u as it was decided she was too weak to pursue biopsy. In ER, initial workup was negative
but she had increase in O2 requirements to 6L NC, CT-PE study was showing mild CHF per imaging and 1 dose IV Lasix was given. We are consulted for eval.
Acute on chronic hypoxemic respiratory failure
Acute on chronic SOB
AE HFpEF exacerbation
Weight loss/decreased PO intake
Generalized weakness
Thrombocytopenia
STEPHEN (creat 1.1-1.2)
Lactic acidosis
Suspected hepatocellular carcinoma
Conditions present DIRECTOR INSTRUCTIONAL MATERIAL
Restrictive lung disease
PFT 2016 TLC 3.25L 64% (moderate restriction), DLCO 49% (moderate diffusion impairment)
FONG cirrhosis
s/p TAVR
hx of HFpEF
pulmonary fibrosis on 3L
DM
TAVR 2016, 2023
Chronic anemia, baseline Hb 7-8
Tonsillectomy
Plan
Chronic use of 3L O2 at home, had been increased to 6L
Prior history of lung disease is noted including IPF, RLD
Suspect patient has underlying/superimposed AECHF on IPF
CXR obtained indicating fibrosis that appears overall stable/mild edema
Other imaging reviewed--Abd MRI with liver lesions
Possible HCC, not yet biopsied
She has weight loss/decreased po intake
proBNP 78.3, lactic acid 3.5
Prognosis overall poor
ECHO reviewed, stable function
History of TAVR
Diuresis per team
If not improving post diuresis, may consider short oral course of steroids
Malnutrition and FTT are suspected
Family seems realistic and are interested in speaking to [facility] care team
Discussed the [facility] care team this decision
Recommend consult
We will follow
Diagnostic Data
CXR 03/24/24- 1. Mild interstitial reticular prominence, likely representing pulmonary fibrosis (pulmonary fibrosis is also seen on prior CT chest dated 04/12/21). Superimposed pulmonary edema should be excluded clinically.
2. Unchanged cardiomegaly.
CXR 11/28/23- Findings are unchanged from prior study and again suggest congestive heart failure
CT Chest 03/24/24- IMPRESSION:
1. No evidence of pulmonary embolism.
2. Mild CHF/pulmonary edema.
Abd MRI 03/05/24- Cirrhotic liver with evidence of portal hypertension and ascites. Within the posterior segment of the right lobe of liver, just right lateral to the IVC, there is a focal lesion which meets MR criteria for hepatocellular carcinoma,
classified as LR 5 by LI-RADS criteria. In the lateral segment of the left lobe of the liver, there is a 10 mm lesion which is classified as LR for, suspicious for hepatocellular carcinoma.
ECHO 03/25/24- Normal left ventricular systolic function. LV ejection fraction is 60-65%. Mild concentric left ventricular hypertrophy. Bioprosthetic AVR with peak/mean gradients across the aortic valve of 36/21 mmHg. Mild paravalvular aortic
regurgitation. Mild mitral stenosis.
Compared to prior study of Oct 2023, valve gradients have decreased.
PFT 02/26/17: FEV1 1.51L 56%, FVC 1.76L 51%, ratio 86. TLC 3.25L 64%, DLCO 49%
--- NOTE | 2024-03-25 11:23 | CON.CAR ---
Addendum entered and electronically signed by Marvin Ferrell MD 03/25/24 13:35:
I saw and examined the patient.
The MUSIC INDUSTRY INTERN's note was reviewed and I agree with the note.
Comment: 63-year-old female (known to Dr. Abrams, her primary manager delivery), with HFpEF, severe aortic stenosis s/p TAVR and MIGUE TAVR 01/10/2024, NIDDM, FONG, ILD, and recently diagnosed hepatocellular carcinoma who presented to the emergency
department with a chief complaint of shortness of breath. She does not appear overtly volume overloaded and her weight is the lowest it has been.
- IV lasix today reassess tomorrow
- cont other medications
Original Note:
Consultation
Consultation Request
Date/Time Consultation Requested: 03/24/2024 22:30
Date/Time Consultation Performed: 03/25/2024 10:45
Requesting Provider: Dr. Dwyer
Performing Provider: SHARA Oscar for Dr. Ferrell
Reason for Consultation: Shortness of breath
Medical History
-
History of Present Illness:
Fariha Rahman is a 63-year-old female (known to Dr. Arbams, her primary manager delivery), with HFpEF, severe aortic stenosis s/p TAVR and MIGUE TAVR 01/10/2024, NIDDM, FONG, ILD, and recently diagnosed hepatocellular carcinoma who presented to the
emergency department with a chief complaint of shortness of breath. She was recently at [facility], 02/26/2024 with the same complaints. She had a PE study which did not show pulmonary embolism but showed opacities with scattered areas of fibrosis
throughout the lungs. Her EKG was stable. Her chest x-ray showed prominent interstitial markings. She was discharged home without any changes in her medical therapy. Over the last 3 days she is again having shortness of breath. This is worse
with exertion and she has none with rest. She is not having any chest pain. She reports she is having slow weight loss. She had a CT PE study here which was negative.
Past Medical History
Past Medical History: Cancer (Hepatocellular), CHF, NIDDM, Valvular Disease (Severe aortic stenosis s/p TAVR) and Other (FONG, pulmonary fibrosis)
Past Surgical History: Tonsilectomy
Social History
Tobacco: Non-Smoker
Alcohol: Occasional
Drug: None
Personal:
Living: Alone
Employment: Retired
Family History
Family History: Reviewed & Not Pertinent
Allergies / Home Medications
Allergy/AdvReac Type Severity Reaction Status Date / Time
nitrofurantoin Allergy Rash Verified 03/24/24 12:53
[From Macrobid]
Penicillins Allergy Rash Verified 03/24/24 12:53
Sulfa (Sulfonamide Allergy Rash Verified 03/24/24 12:53
Antibiotics)
�Medication �Instructions �Recorded �Confirmed �Type
aspirin 81 mg tablet,delayed 81 mg PO DAILY Blood Clot 08/11/16 03/24/24 History
release Prevention/Tx
fluticasone furoate 100 1 inh inhalation R DAILY 10/30/23 03/24/24 History
mcg/actuation blister powder for Lung/Breathing Issues
inhalation (Arnuity Ellipta)
gabapentin 300 mg capsule 300 mg PO HS Neurological Condition 10/30/23 03/24/24 History
levothyroxine 112 mcg tablet 112 mcg PO MOTUWETHFRSA Thyroid 10/30/23 03/24/24 History
rosuvastatin 10 mg tablet 10 mg PO QPM High Cholesterol 10/30/23 03/24/24 History
sitagliptin phosphate 50 1 tab PO BID@0800,1700 Diabetes 10/30/23 03/24/24 History
mg-metformin 1,000 mg tablet
(Janumet)
therapeutic multivitamin 1 tab PO HS Supplement 10/30/23 03/24/24 History
vibegron 75 mg tablet (Gemtesa) 75 mg PO DAILY Urinary Issue 10/30/23 03/24/24 History
albuterol sulfate 90 mcg/actuation 2 puff inhalation R Q6HPRN PRN sob 11/28/23 03/24/24 History
aerosol inhaler
coQ10 (ubiquinol) 100 mg capsule 100 mg PO DAILY Supplement 11/28/23 03/24/24 History
midodrine 5 mg tablet 5 mg PO BID Blood Pressure 01/30/24 03/24/24 History
thiamine HCl (vitamin B1) 100 mg 100 mg PO DAILY Supplement 01/30/24 03/24/24 History
tablet
bupropion HCl 150 mg 24 hr tablet, 150 mg PO DAILY depression/anxiety 03/24/24 03/24/24 History
extended release (Wellbutrin XL)
famotidine 40 mg tablet (Pepcid) 40 mg PO DAILY Gastrointestinal 03/24/24 03/24/24 History
Issue
furosemide 20 mg tablet (Lasix) 20 mg PO DAILY Fluid 03/24/24 03/24/24 History
Retention/Swelling
ipratropium 0.5 mg-albuterol 3 mg 3 ml inhalation R Q6HPRN PRN sob 03/24/24 03/24/24 History
(2.5 mg base)/3 mL nebulization
soln
lactulose 10 gram/15 mL oral 10 g PO DAILY@1400 liver 03/24/24 03/24/24 History
solution disease/FONG
levothyroxine 112 mcg tablet 224 mcg PO MCCLAIN Thyroid 03/24/24 03/24/24 History
(Synthroid)
lorazepam 0.5 mg tablet 0.5 mg PO DAILYPRN PRN anxiety 03/24/24 03/24/24 History
rifaximin 550 mg tablet (Xifaxan) 550 mg PO BID liver disease/FONG 03/24/24 03/24/24 History
spironolactone 50 mg tablet 50 mg PO DAILY Blood Pressure/edema 03/24/24 03/24/24 History
Review of Systems
-
History Source: Patient
All other systems: Negative unless noted
Constitutional: Weight Loss and Fatigue
Respiratory: Trouble Breathing
Cardiac: No Symptoms
Abdomen/GI: No Symptoms
: No Symptoms
Neurological: Weakness
Physical Exam
Vital Signs
Temp Pulse Resp BP Pulse Ox
97.8 F 65 18 124/48 100
03/25/24 11:12 03/25/24 11:12 03/25/24 11:12 03/25/24 11:12 03/25/24 07:32
Lab Results
03/25/24 07:09
03/25/24 07:09
Troponin I < 0.012 ng/ml 03/24/24 13:58
Kgh-I-Suxgocubtoe Pept 78.3 pg/ml 03/24/24 13:58
Physical Exam
General: Well Developed, Well Nourished, No Apparent Distress and Comfortable
HEENT: Normocephalic, Anicteric and Moist Mucous Membranes
Respiratory: Clear and Non Labored Respirations
Cardiac: S1/S2 and Regular Rhythm
Breast: Deferred by me
GI: Soft, Non Tender, Non Distended and Normal Bowel Sounds
Rectal: Deferred by Provider
Genito-urinary: No Costovertebral Tender
Musculoskeletal: No Clubbing, No Cyanosis and No Edema
Skin: Warm and Dry
Neuro: AO x 3
Hematologic/Lymphatic: No Lymphadenopathy
Psych: Calm
Impression / Plan
-
Shortness of breath
Acute on chronic respiratory failure
-She briefly needed 6 L nasal cannula emergency department, she is back down to her baseline of 3 L/min
-No symptoms at rest, exertional only
-Pulmonary consultation noted
HFpEF, chronic
-Her weight is the lowest its ever been documented
-She does not feel any better after receiving intravenous diuretic yesterday
-Can try an additional dose of diuretic today, she received furosemide 20 mg IV in the ER, will try 40 mg this morning
-She had mild pulmonary edema on her CAT scan yesterday
-Follow daily weight, I/O
Severe aortic stenosis s/p MIGUE TAVR on 01/10/[address] Langley
-Echocardiogram today shows peak/mean gradients of 36/21 mmHg with mild paravalvular aortic regurgitation
FONG cirrhosis, last paracentesis for 3100 mL 01/2024
Hepatocellular carcinoma, diagnosed by abdominal MRI last month, she has an appointment on in the outpatient setting
Hypothyroidism on levothyroxine
Data Reviewed
-
EKG: Report Reviewed by me (Sinus rhythm, rate 64)
Radiology: Report Reviewed by me (CXR: Mild interstitial reticular prominence, likely representing pulmonary fibrosis (pulmonary fibrosis is also seen on prior CT chest dated 04/12/21). Superimposed pulmonary edema should be excluded clinically.)
CT Scan: Report Reviewed by me (Chest: No evidence of pulmonary embolism. Mild CHF/pulmonary edema.)
Medical Tests (Nuc Med, Echo etc): Report Reviewed by me (Echocardiogram as above)
Labs: Labs Reviewed by me
Old Records: Reviewed
[2024-03-25 12:03] LABS: Glucose - Point of Care 181 mg/dl (70-99)
[2024-03-25] MEDS: LASIX 40 MG IV (12:37)
[2024-03-25] MEDS: NOVOLOG FLEXPEN-LOW RESISTANCE 1 UNITS SC ×2 (12:43→17:32)
[2024-03-25] MEDS: DUPHALAC/CHRONULAC 10 GRAMS PO (14:30)
[2024-03-25 15:33] LABS: COVID-19 Antigen Negative (Negative)
--- NOTE | 2024-03-25 16:13 | CM ---
land development manager reviewed patient's chart and met with patient and patient lives with her daughter is independent with adl's and patient uses a rollator with ambulation, patient is currently on oxygen at home at 3 liters from [employer], patient was seen by
home health and the recommendation is for home with visiting nurses, patient is current with [facility] care, leather case finisher will make a referral.
Plan; Hoe with [facility].
[2024-03-25 16:55] LABS: Glucose - Point of Care 179 mg/dl (70-99)
[2024-03-25] MEDS: NEURONTIN 300 MG PO (21:00)
[2024-03-25 21:16] LABS: Glucose - Point of Care 158 mg/dl (70-99)
--- NOTE | 2024-03-26 03:24 | DOWNTIME ---
There was a [employer] Downtime on 03/25/2024 from 0100 to 03/26/2024 at 0300. Downtime documentation of patient's care, including medication administrations, has been reconciled in the electronic record per guidelines. Refer to the
patient's paper chart under the miscellaneous tab to see printed paper medication records and downtime forms.
[2024-03-26 03:30] VITALS: BP 119/48
[2024-03-26 06:00] VITALS: BMI 21.2
[2024-03-26] MEDS: SYNTHROID 112 MCG PO (06:02)
[2024-03-26 07:01] LABS: % Basophils 1.3 % (0-2); % Eosinophils 8.6 % (0-6); % Immature Granulocytes 0.6 % (0-0.5); % Lymphocytes 21.4 % (20.5-51.1); % Monocytes 14.1 % (1.7-9.3); Absolute Basophils 0.1 10^3/uL (0-0.2); Absolute Eosinophils 0.6 10^3/uL (0-0.7); Absolute Lymphocytes 1.4 10^3/uL (1.2-3.4); Absolute Neutrophils 3.6 10^3/uL (1.4-6.5); Hematocrit 24.9 % (37.0-47.0); Mean Corp Hgb Conc. 32.1 g/dL (33.0-37.0); Mean Corpuscular Volume 96.5 fL (81.0-99.0); Mean Platelet Volume 10.8 fL (7.4-10.4); Nucleated Red Blood Cells % 0 %; Platelet Count 125 10^3/uL (130-400); Red Blood Cell Count 2.58 10^6/uL (4.20-5.40); Red Cell Dist. Width 16.9 % (11.5-14.5); White Blood Cell Count 6.7 10^3/uL (4.8-10.8)
[2024-03-26 07:39] LABS: ALT (SGPT) 32 U/L (0-35); AST (SGOT) 56 U/L (14-36); Albumin 3.2 g/dl (3.5-5.0); Alkaline Phosphatase 97 U/L (38-126); Blood Urea Nitrogen 38 mg/dl (7-17); Calcium 9.9 mg/dl (8.4-10.2); Carbon Dioxide 26 mmol/L (22-30); Chloride 100 mmol/L (98-107); Estimated Creatinine Clearance 38 ml/min; Glucose 133 mg/dl (70-99); Potassium 4.5 mmol/L (3.5-5.1); Sodium 134 mmol/L (135-145); Total Bilirubin 0.3 mg/dl (0.2-1.3); Total Protein 6.6 g/dl (6.3-8.2); eGFR 45.92
[2024-03-26 07:40] VITALS: BP 116/53
[2024-03-26 07:53] LABS: Glucose - Point of Care 128 mg/dl (70-99)
[2024-03-26] MEDS: STRIVERDI RESPIMAT 2 PUFF INH (08:13)
[2024-03-26] MEDS: SPIRIVA RESPIMAT 2.5 MCG 2 PUFF INH (08:13)
[2024-03-26] MEDS: NOVOLOG FLEXPEN-LOW RESISTANCE SC ×2 (08:59→12:21)
--- NOTE | 2024-03-26 09:35 | W.PN.CD ---
Today's Communication / Plan
-
- CT raised question of HF. Clinically I am not convinced she has ddecompenssated HF. Pro BNP is 78. dry weight is challenging. patient has been losing weight and no edema. Creatinine up to 1.3 ( patient 55kg). Need to be careful not to
overdiurese. Want to avoid hepatorenal issues.
- would consider RHC to assess intravascular volume
- treatment of anemia as per primary team
Impression / Plan
-
Shortness of breath
Acute on chronic respiratory failure
-She briefly needed 6 L nasal cannula emergency department, she is back down to her baseline of 3 L/min
-No symptoms at rest, exertional only
-Pulmonary consultation noted
- CT raised question of HF. Pro BNP is 78. dry weight is challenging. patient has been losing weight and not edema. Creatinine up to 1.3 ( patient 55kg). Need to be careful not to overdiurese. Want to avoid hepatorenal isues.
- would consider RHC to assess intravascular volume
- treat anemia
-
HFpEF, chronic
-Her weight is the lowest its ever been documented
-She does not feel any better after receiving intravenous diuretic yesterday
-Can try an additional dose of diuretic today, she received furosemide 20 mg IV in the ER, will try 40 mg this morning
-Reort suggested mild pulmonary edema on her CT scan yesterday
-Follow daily weight, I/O
Severe aortic stenosis s/p MIGUE TAVR on 01/10/[address] Langley
-Echocardiogram today shows peak/mean gradients of 36/21 mmHg with mild paravalvular aortic regurgitation
anemia - hb 8.0 - tx per primary team
FONG cirrhosis, last paracentesis for 3100 mL 01/2024
Hepatocellular carcinoma, diagnosed by abdominal MRI last month, she has an appointment on in the outpatient setting
Hypothyroidism on levothyroxine
Physical Exam
Vital Signs/Labs
Vital Signs
Temp Pulse Resp BP Pulse Ox
98.7 F 81 18 116/53 98
03/26/24 07:40 03/26/24 08:16 03/26/24 08:16 03/26/24 07:40 03/26/24 08:16
03/25/24 03/26/24 03/27/24
06:59 06:59 06:59
Actual Weight 57.8 kg 55.905 kg
03/26/24 06:14
03/26/24 06:14
PT 14.8 Sec (11.4-14.6) H 03/24/24 13:58
INR 1.18 03/24/24 13:58
APTT 28.4 Sec (23.4-35.0) 03/24/24 13:58
Magnesium 2.1 mg/dl (1.6-2.3) 03/25/24 07:09
03/24/24
13:58
Kam-D-Kiywuhmlgtl Pept 78.3
LAB Results
03/24/24
13:58
Troponin I < 0.012
Physical Exam
Constitutional: No acute distress
Cardiovascular: Rhythm & rate is regular
Respiratory: Wheeze Absent, Rhonchi Absent and Other (decreased right base)
GI: Soft and Other (mildly distended)
Neuro/Psych: Alert
Data Reviewed
-
Date of Service: March 26, 2024
Medical Decision Making: Reviewed Test Results
EKG: Report Reviewed by me
X-Ray/CT/US/MRI/NUC/PET: Report Reviewed by me and Other (cxr images reviewed, CT report reviewed)
Medical Tests (PFT, Pathology etc): Report Reviewed by me
Labs: Labs Reviewed by me
[2024-03-26] MEDS: HEPARIN 5000 UNITS SC ×2 (09:37→20:13)
[2024-03-26] MEDS: ASPIR LOW (ENTERIC COATED) 81 MG PO (09:38)
[2024-03-26] MEDS: JANUVIA 50 MG PO ×2 (09:38→17:47)
[2024-03-26] MEDS: ALDACTONE 50 MG PO (09:38)
[2024-03-26] MEDS: GLUCOPHAGE 1000 MG PO ×2 (09:38→17:47)
[2024-03-26] MEDS: WELLBUTRIN XL (24 hour extended release) 150 MG PO (09:38)
[2024-03-26] MEDS: PEPCID 40 MG PO (09:38)
[2024-03-26] MEDS: ProAmatine 5 MG PO ×2 (09:38→17:47)
[2024-03-26] MEDS: XIFAXAN 550 MG PO ×2 (09:38→20:14)
--- NOTE | 2024-03-26 10:43 | W.PN.HOSP.TC ---
Today's Communication/Plan
-
Plan for right heart catheterization
Hold Lasix
Labs in the morning
Assessment / Plan
Assessment / Plan
Gen-AAOx3, NAD
HEENT-NC, AT, anicteric, clear oral mm
Neck-supple
CV-reg, no M, +S1/S2
Lungs-faint Rales bilateral
Abd-soft, NT, ND
Ext-no edema
Musculoskeletal-no cyanosis, clubbing
Skin-warm and dry
Neuro-grossly non-focal
Psych-calm, cooperative
STEPHEN - possibly due to diuretic effect, volume contraction. Creatinine up to 1.3, BUN 38. Hold further Lasix. Recheck labs in the morning.
Acute on chronic hypoxic respiratory failure -suspect related to underlying interstitial pulmonary fibrosis, possible flare. Heart failure exacerbation seems less likely. Baseline uses 3 L of oxygen continuously at home, required 6 L last night.
Currently down to 3 L.
Hyponatremia -134. Likely due to diuretics. Monitor for now.
IPF
Chronic heart failure preserved EF -echocardiogram shows LV EF 60 to 65%, mild concentric LVH, bioprosthetic AVR with mild paravalvular aortic regurg, mild MS. Unclear if she has a component of acute heart failure exacerbation. Discussed with
cardiology, plan for right heart catheterization. Hold off on further Lasix given rising creatinine.
FONG cirrhosis
Acute thrombocytopenia -125k, unclear etiology. Monitor for now. Possible HIT but doubt type II. Counts are stable.
Hepatocellular carcinoma -recently diagnosed on abdominal MRI last month. Follow-up as an outpatient. She has an appointment to see specialist this .
Aortic stenosis -second TAVR procedure done in December of this year.
Chronic iron deficiency anemia -followed by hematology, Dr. Diggs. Last iron infusion was a month ago. Hemoglobin 8.0 today, stable.
Essential hypertension -stable.
Orthostatic hypotension -on midodrine.
DM 2 without hyperglycemia -hemoglobin A1c unreliable in the setting of chronic anemia. Glucose 133 this morning. On Janumet at home.
Hyperlipidemia -continue rosuvastatin.
Hypothyroidism -continue levothyroxine.
Anxiety/depression
Chronic peripheral diabetic neuropathy
Full code
Anticipated Discharge: > 48 hours
Subjective/Interval History
-
Date of Service: March 26, 2024
Patient seen and examined. Shortness of breath somewhat better today. No new complaints.
Objective Data
-
Labs:
Laboratory Results
03/26/24
06:14
WBC 6.7
Hgb 8.0 L
Hct 24.9 L
Plt Count 125 L
Sodium 134 L
Potassium 4.5
Chloride 100
Carbon Dioxide 26
BUN 38 H
Creatinine 1.3 H
Glucose 133 H
Calcium 9.9
Total Bilirubin 0.3
AST 56 H
ALT 32
Alkaline Phosphatase 97
Vital Signs:
Vital Signs
Temp Pulse Resp BP Pulse Ox
98.7 F 81 18 116/53 98
03/26/24 07:40 03/26/24 08:16 03/26/24 08:16 03/26/24 07:40 03/26/24 08:16
I&O
03/25/24 03/26/24 03/27/24
06:59 06:59 06:59
Intake Total 570 / 570
Output Total 1750 / 1750
Balance -1180 / -1180
Review of Systems
-
History Source: Patient
All other systems: Reviewed and negative
[2024-03-26 11:23] VITALS: BP 124/49
[2024-03-26 11:46] LABS: Glucose - Point of Care 136 mg/dl (70-99)
--- NOTE | 2024-03-26 12:47 | W.PN.PUL3 ---
Today's Communication / Plan
-
Back to baseline O2 requirements, does not appear to indicate need for oral prednisone course
Agree with HF management, cath planning per team
Recommend palliative discussions, family was open to this
I communicated this to care team
Nothing to add from our perspective, we will sign off pending cath results
Assessment
-
63 year old F with history of FONG cirrhosis, s/p TAVR, hx of HFpEF, IPF on 3L, DM presents to ER with SOB and weakness x 1 week. Daughter is at bedside who noticed that patient has also been struggling wtih decreased PO intake, weight loss,
fatigue, lethargy wtih increasing weakness. She was supposed to undergo opinion at [facility] for liver lesions suspected of being HCC, but never underwent w/u as it was decided she was too weak to pursue biopsy. In ER, initial workup was negative
but she had increase in O2 requirements to 6L NC, CT-PE study was showing mild CHF per imaging and 1 dose IV Lasix was given. We are consulted for eval.
Acute on chronic hypoxemic respiratory failure
Acute on chronic SOB
AE HFpEF exacerbation
Weight loss/decreased PO intake
Generalized weakness
Thrombocytopenia
STEPHEN (creat 1.1-1.2)
Lactic acidosis
Suspected hepatocellular carcinoma
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
Restrictive lung disease
PFT 2016 TLC 3.25L 64% (moderate restriction), DLCO 49% (moderate diffusion impairment)
FONG cirrhosis
s/p TAVR
hx of HFpEF
pulmonary fibrosis on 3L
DM
TAVR 2016, 2023
Chronic anemia, baseline Hb 7-8
Tonsillectomy
Plan
Chronic use of 3L O2 at home, had been increased to 6L on arrival
She is now back to baseline use of O2
Prior history of lung disease is noted including IPF, RLD
Suspect patient has underlying/superimposed AECHF on IPF
CXR obtained indicating fibrosis that appears overall stable/mild edema
Other imaging reviewed--Abd MRI with liver lesions
Possible HCC, not yet biopsied
She has weight loss/decreased po intake
proBNP 78.3, lactic acid 3.5
Prognosis overall poor
ECHO reviewed, stable function
History of TAVR
Diuresis per team
She is scheduled for LHC/RHC
It does not appear indicated for course of oral steroids
She feels improved, back to baseline O2 use
Malnutrition and FTT are suspected
Family seems realistic and are interested in speaking to [facility] care team
Discussed [facility] care team this decision
Recommend consult
Diagnostic Data
CXR 03/24/24- 1. Mild interstitial reticular prominence, likely representing pulmonary fibrosis (pulmonary fibrosis is also seen on prior CT chest dated 04/12/21). Superimposed pulmonary edema should be excluded clinically.
2. Unchanged cardiomegaly.
CXR 11/28/23- Findings are unchanged from prior study and again suggest congestive heart failure
CT Chest 03/24/24- IMPRESSION:
1. No evidence of pulmonary embolism.
2. Mild CHF/pulmonary edema.
Abd MRI 03/05/24- Cirrhotic liver with evidence of portal hypertension and ascites. Within the posterior segment of the right lobe of liver, just right lateral to the IVC, there is a focal lesion which meets MR criteria for hepatocellular carcinoma,
classified as LR 5 by LI-RADS criteria. In the lateral segment of the left lobe of the liver, there is a 10 mm lesion which is classified as LR for, suspicious for hepatocellular carcinoma.
ECHO 03/25/24- Normal left ventricular systolic function. LV ejection fraction is 60-65%. Mild concentric left ventricular hypertrophy. Bioprosthetic AVR with peak/mean gradients across the aortic valve of 36/21 mmHg. Mild paravalvular aortic
regurgitation. Mild mitral stenosis.
Compared to prior study of Oct 2023, valve gradients have decreased.
PFT 02/26/17: FEV1 1.51L 56%, FVC 1.76L 51%, ratio 86. TLC 3.25L 64%, DLCO 49%
Subjective Data
-
Date of Service:
Date of Service: March 26, 2024
Chief Complaint: Pulmonary Follow Up
Subjective:
she feels improved today, no new complaints
still notes some weakness
Objective Data
Data Reviewed
Vital Signs / I&O / Oxygen:
Vital Signs
Temp Pulse Resp BP Pulse Ox
97.7 F 61 18 124/49 100
03/26/24 11:23 03/26/24 11:23 03/26/24 11:23 03/26/24 11:23 03/26/24 11:23
Intake and Output
03/25/24 03/26/24 03/27/24
06:59 06:59 06:59
Intake Total 570 / 570
Output Total 1750 / 1750
Balance -1180 / -1180
SaO2 100
Nasal Cannula flow liters per 3
minute
Physical Exam
General: Comfortable, Poor Appetite and Other (nad, chronically ill appearing, thin, weakness noted)
HEENT: Normocephalic, Anicteric and Moist Mucous Membranes
Cardiovascular: S1-S2 and Regular Rhythm
Respiratory: Crackles and Non-Labored Respirations
GI: Soft, Non Distended and Non Tender
Neurology: Awake, Alert, Oriented, AO x 3 and No Motor Deficits
Skin: Warm and Dry
Labs/Micro/Reports
Lab Data
03/26/24 06:14
03/26/24 06:14
[2024-03-26] MEDS: DUPHALAC/CHRONULAC 10 GRAMS PO (14:56)
[2024-03-26 15:32] VITALS: BP 114/48
[2024-03-26 16:42] LABS: Glucose - Point of Care 156 mg/dl (70-99)
[2024-03-26] MEDS: NOVOLOG FLEXPEN-LOW RESISTANCE 1 UNITS SC (17:46)
[2024-03-26 19:25] VITALS: BP 110/50
[2024-03-26] MEDS: ATIVAN 0.5 MG PO (21:10)
[2024-03-26] MEDS: NEURONTIN 300 MG PO (21:10)
[2024-03-26 21:11] LABS: Glucose - Point of Care 119 mg/dl (70-99)
[2024-03-26 23:15] VITALS: BP 105/41
[2024-03-27] VITALS (10 sets, daily range): BP systolic 111–131; BP diastolic 44–59; PULSE 66; O2SAT 100; BMI 21.2
--- NOTE | 2024-03-27 05:32 | PTCARENOTE ---
Pt reports burning with urination. Pt is afebrile and denies other symptoms. House ACCOUNT AUDITOR Vahe notified, order for urinalysis sent to lab. Will continue to monitor.
[2024-03-27] MEDS: SYNTHROID 112 MCG PO (05:34)
[2024-03-27 06:34] LABS: Urine Albumin Negative (Neg - Trace); Urine Bilirubin Negative (Negative); Urine Character Clear (Clear); Urine Color Yellow; Urine Glucose Negative (Negative); Urine Ketone Negative (Negative); Urine Leukocyte Trace (Negative); Urine Nitrite Negative (Negative); Urine Occult Blood Negative (Negative); Urine Specific Gravity 1.015 (<1.030); Urine Urobilinogen Negative (Neg - 1+)
[2024-03-27 07:29] LABS: Glucose - Point of Care 120 mg/dl (70-99)
[2024-03-27 08:07] LABS: % Basophils 1.8 % (0-2); % Eosinophils 9.8 % (0-6); % Immature Granulocytes 0.3 % (0-0.5); % Lymphocytes 18.4 % (20.5-51.1); % Monocytes 12.7 % (1.7-9.3); Absolute Basophils 0.1 10^3/uL (0-0.2); Absolute Eosinophils 0.6 10^3/uL (0-0.7); Absolute Lymphocytes 1.2 10^3/uL (1.2-3.4); Absolute Monocytes 0.8 10^3/uL (0.1-0.6); Absolute Neutrophils 3.7 10^3/uL (1.4-6.5); Hematocrit 25.4 % (37.0-47.0); Hemoglobin 8.2 g/dL (12.0-16.0); Mean Corp Hgb Conc. 32.3 g/dL (33.0-37.0); Mean Corpuscular Hgb 31.3 pg (27.0-31.0); Mean Corpuscular Volume 96.9 fL (81.0-99.0); Mean Platelet Volume 10.6 fL (7.4-10.4); Nucleated Red Blood Cells % 0 %; Platelet Count 135 10^3/uL (130-400); Red Blood Cell Count 2.62 10^6/uL (4.20-5.40); Red Cell Dist. Width 16.5 % (11.5-14.5); White Blood Cell Count 6.5 10^3/uL (4.8-10.8)
[2024-03-27] MEDS: STRIVERDI RESPIMAT 2 PUFF INH (08:07)
[2024-03-27] MEDS: SPIRIVA RESPIMAT 2.5 MCG 2 PUFF INH (08:07)
[2024-03-27 08:26] LABS: Urine Amorphous Seen; Urine Squamous Cell 0-2 /LPF (Few)
[2024-03-27] MEDS: NOVOLOG FLEXPEN-LOW RESISTANCE SC ×2 (08:26→11:44)
[2024-03-27 08:27] LABS: Urine Hyaline Cast 0-2 /LPF (0-2)
[2024-03-27] MEDS: ASPIR LOW (ENTERIC COATED) 81 MG PO (08:27)
[2024-03-27] MEDS: XIFAXAN 550 MG PO (08:27)
[2024-03-27] MEDS: ProAmatine 5 MG PO ×2 (08:27→16:06)
[2024-03-27] MEDS: ALDACTONE 50 MG PO (08:27)
[2024-03-27] MEDS: GLUCOPHAGE 1000 MG PO ×2 (08:27→16:06)
[2024-03-27] MEDS: JANUVIA 50 MG PO ×2 (08:27→16:06)
[2024-03-27 08:28] LABS: ALT (SGPT) 28 U/L (0-35); AST (SGOT) 52 U/L (14-36); Albumin 3.3 g/dl (3.5-5.0); Alkaline Phosphatase 104 U/L (38-126); Blood Urea Nitrogen 39 mg/dl (7-17); Calcium 10.2 mg/dl (8.4-10.2); Carbon Dioxide 22 mmol/L (22-30); Chloride 99 mmol/L (98-107); Estimated Creatinine Clearance 38 ml/min; Glucose 104 mg/dl (70-99); Sodium 132 mmol/L (135-145); Total Bilirubin 0.3 mg/dl (0.2-1.3); Total Protein 6.9 g/dl (6.3-8.2); eGFR 45.92
[2024-03-27 08:28] LABS: Urine Red Blood Cell 0-2 /HPF (0-2)
[2024-03-27] MEDS: HEPARIN 5000 UNITS SC (08:28)
[2024-03-27] MEDS: PEPCID 40 MG PO (08:28)
[2024-03-27] MEDS: WELLBUTRIN XL (24 hour extended release) 150 MG PO (08:30)
--- NOTE | 2024-03-27 09:28 | W.PN.CD ---
Today's Communication / Plan
-
on 3 liters similar to home. still with exertional SOB
creatinine at 1.3
I would not give additional lasix.
reviewed issues with the patient and Dr Salinas. I suspect residual sob related to pulmonary issues and not HF. Plan for RHC today to assess volume status
reviewed with interventional cardiology
Impression / Plan
-
Shortness of breath
Acute on chronic respiratory failure
-She briefly needed 6 L nasal cannula emergency department, she is back down to her baseline of 3 L/min
-No symptoms at rest, exertional only
-Pulmonary consultation noted
- CT raised question of HF. Pro BNP is 78. dry weight is challenging. patient has been losing weight and no edema. Ascites has not required a tap recently. Creatinine up to 1.3 ( patient 55kg). Need to be careful not to overdiurese. Want to avoid
hepatorenal issues.
- would consider RHC to assess intravascular volume
- treat anemia
-
HFpEF, chronic
-Her weight is the lowest its ever been documented
-She does not feel any better after receiving intravenous diuretic yesterday
-Can try an additional dose of diuretic today, she received furosemide 20 mg IV in the ER, will try 40 mg this morning
-Reort suggested mild pulmonary edema on her CT scan yesterday
-Follow daily weight, I/O
Severe aortic stenosis s/p MIGUE TAVR on 01/10/[address] Langley
-Echocardiogram this admit shows peak/mean gradients of 36/21 mmHg with mild paravalvular aortic regurgitation
anemia - hb 8.0 - tx per primary team
FONG cirrhosis, last paracentesis for 3100 mL 01/2024
Hepatocellular carcinoma, diagnosed by abdominal MRI last month, she has an appointment on in the outpatient setting
Hypothyroidism on levothyroxine
Physical Exam
Vital Signs/Labs
Vital Signs
Temp Pulse Resp BP Pulse Ox
98.3 F 68 16 111/44 97
03/27/24 07:35 03/27/24 08:10 03/27/24 08:10 03/27/24 08:27 03/27/24 08:10
03/26/24 03/27/24 03/28/24
06:59 06:59 06:59
Actual Weight 55.905 kg 55.99 kg
03/27/24 07:02
03/27/24 07:02
PT 14.8 Sec (11.4-14.6) H 03/24/24 13:58
INR 1.18 03/24/24 13:58
APTT 28.4 Sec (23.4-35.0) 03/24/24 13:58
Magnesium 2.1 mg/dl (1.6-2.3) 03/25/24 07:09
03/24/24
13:58
Btb-P-Mvholenrcbi Pept 78.3
LAB Results
03/24/24
13:58
Troponin I < 0.012
Physical Exam
Constitutional: No acute distress
Cardiovascular: Rhythm & rate is regular, Pedal edema is absent and Systolic murmur present
Respiratory: Other (fine crackles at basess)
GI: Soft and Flat
Neuro/Psych: Alert
Data Reviewed
-
Date of Service: March 27, 2024
Medical Decision Making: Reviewed Test Results and Review of Case with other Provider
Echo: Report Reviewed by me
Medical Tests (PFT, Pathology etc): Report Reviewed by me
Labs: Labs Reviewed by me
--- NOTE | 2024-03-27 09:33 | W.PN.PUL3 ---
Today's Communication / Plan
-
Post cath, wedge not indicative of volume overload
We have discussed possibility of disease progression, ok for trial of prednisone per daughter's request
Outpatient pulmonary FU recommended
Discharge planning per team
Assessment
-
63 year old F with history of FONG cirrhosis, s/p TAVR, hx of HFpEF, IPF on 3L, DM presents to ER with SOB and weakness x 1 week. Daughter is at bedside who noticed that patient has also been struggling wtih decreased PO intake, weight loss,
fatigue, lethargy wtih increasing weakness. She was supposed to undergo opinion at [place] for liver lesions suspected of being HCC, but never underwent w/u as it was decided she was too weak to pursue biopsy. In ER, initial workup was negative
but she had increase in O2 requirements to 6L NC, CT-PE study was showing mild CHF per imaging and 1 dose IV Lasix was given. We are consulted for eval.
Acute on chronic hypoxemic respiratory failure
Acute on chronic SOB
AE HFpEF exacerbation
Weight loss/decreased PO intake
Generalized weakness
Thrombocytopenia
STEPHEN (creat 1.1-1.2)
Lactic acidosis
Suspected hepatocellular carcinoma
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
Restrictive lung disease
PFT 2016 TLC 3.25L 64% (moderate restriction), DLCO 49% (moderate diffusion impairment)
FONG cirrhosis
s/p TAVR
hx of HFpEF
pulmonary fibrosis on 3L
DM
TAVR 2016, 2023
Chronic anemia, baseline Hb 7-8
Tonsillectomy
Plan
Chronic use of 3L O2 at home, had been increased to 6L on arrival
She is now back to baseline use of O2
Prior history of lung disease is noted including IPF, RLD
Suspect patient has underlying/superimposed AECHF on IPF
CXR obtained indicating fibrosis that appears overall stable/mild edema
Other imaging reviewed--Abd MRI with liver lesions
ECHO reviewed, stable function
History of TAVR
Diuresis per team
LHC/RHC results reviewed, wedge 12 which is not suggestive of volume overload
We discussed the possibility that her long disease may have just progressed
Can try prednisone course at daughter's request
Possible HCC, not yet biopsied
She has weight loss/decreased po intake
proBNP 78.3, lactic acid 3.5
Prognosis overall poor
Malnutrition and FTT are suspected
Family seems realistic and are interested in speaking to [facility] care team
Discussed [facility] care team this decision
Recommend consult
Discharge planning per team
Diagnostic Data
CXR 03/24/24- 1. Mild interstitial reticular prominence, likely representing pulmonary fibrosis (pulmonary fibrosis is also seen on prior CT chest dated 04/12/21). Superimposed pulmonary edema should be excluded clinically.
2. Unchanged cardiomegaly.
CXR 11/28/23- Findings are unchanged from prior study and again suggest congestive heart failure
CT Chest 03/24/24- IMPRESSION:
1. No evidence of pulmonary embolism.
2. Mild CHF/pulmonary edema.
Abd MRI 03/05/24- Cirrhotic liver with evidence of portal hypertension and ascites. Within the posterior segment of the right lobe of liver, just right lateral to the IVC, there is a focal lesion which meets MR criteria for hepatocellular carcinoma,
classified as LR 5 by LI-RADS criteria. In the lateral segment of the left lobe of the liver, there is a 10 mm lesion which is classified as LR for, suspicious for hepatocellular carcinoma.
ECHO 03/25/24- Normal left ventricular systolic function. LV ejection fraction is 60-65%. Mild concentric left ventricular hypertrophy. Bioprosthetic AVR with peak/mean gradients across the aortic valve of 36/21 mmHg. Mild paravalvular aortic
regurgitation. Mild mitral stenosis.
Compared to prior study of Oct 2023, valve gradients have decreased.
PFT 02/26/17: FEV1 1.51L 56%, FVC 1.76L 51%, ratio 86. TLC 3.25L 64%, DLCO 49%
RHC+LHC 03/27/24: RA: 7
RV: 38/10
PA: 38/14
PCWP: 12
Oximetry: Ao 100% (via sat monitor), PA 72%, cardiac output 4.9, cardiac index 3.1
CONCLUSION: Normal filling pressures with mild pulmonary hypertension. The patient is euvolemic at weight 123 pounds
Subjective Data
-
Date of Service:
Date of Service: March 27, 2024
Chief Complaint: Pulmonary Follow Up
Subjective:
she feels worse today post cath
more tired/sob
family at bedside
Objective Data
Data Reviewed
Vital Signs / I&O / Oxygen:
Vital Signs
Temp Pulse Resp BP Pulse Ox
98.3 F 68 16 111/44 97
03/27/24 07:35 03/27/24 08:10 03/27/24 08:10 03/27/24 08:27 03/27/24 08:10
Intake and Output
03/26/24 03/27/24 03/28/24
06:59 06:59 06:59
Intake Total 570 / 570 1280 / 1280
Output Total 1750 / 1750
Balance -1180 / -1180 1280 / 1280
SaO2 97
Nasal Cannula flow liters per 3
minute
Physical Exam
General: Comfortable, Poor Appetite and Other (nad, chronically ill appearing, thin, weakness noted)
HEENT: Normocephalic, Anicteric and Moist Mucous Membranes
Cardiovascular: S1-S2 and Regular Rhythm
Respiratory: Crackles and Non-Labored Respirations
GI: Soft, Non Distended and Non Tender
Neurology: Awake, Alert, Oriented, AO x 3 and No Motor Deficits
Skin: Warm and Dry
Labs/Micro/Reports
Lab Data
03/27/24 07:02
03/27/24 07:02
--- NOTE | 2024-03-27 09:55 | W.PN.HOSP.TC ---
Addendum entered and electronically signed by Adalberto Salinas DO 03/27/24 16:16:
I spoke with pulmonary, Dr. Hyatt, she recommends discharge on a tapering schedule of prednisone. This will be for presumed IPF flare.
Outpatient follow-up.
Patient has a bed in [facility] and will be leaving today.
Addendum entered and electronically signed by Adalberto Salinas, 03/27/24 14:41:
Daughter Delicia updated on the phone. All questions answered.
Patient and family are looking into going to short-term rehab, such as [facility]. I explained that physical therapy worked with her and recommending home health so I am not sure her insurance will cover the cost of rehab. Case management updated
and they will look into it.
Otherwise patient is stable for discharge.
Original Note:
Today's Communication/Plan
-
Right heart catheterization
Assessment / Plan
Assessment / Plan
Gen-AAOx3, NAD
HEENT-NC, AT, anicteric, clear oral mm
Neck-supple
CV-reg, no M, +S1/S2
Lungs-faint Rales bilateral
Abd-soft, NT, ND
Ext-no edema
Musculoskeletal-no cyanosis, clubbing
Skin-warm and dry
Neuro-grossly non-focal
Psych-calm, cooperative
STEPHEN - possibly due to diuretic effect, volume contraction. Creatinine stable at 1.3. Hold further Lasix. Recheck labs in the morning.
Acute on chronic hypoxic respiratory failure -suspect related to underlying interstitial pulmonary fibrosis, possible flare. Heart failure exacerbation seems less likely. Oxygen intake currently at 3 L, this is her baseline.
Discussed with cardiology, Dr. Abrams, plan for right heart catheterization today.
Hyponatremia -132. Likely due to diuretics. Monitor for now.
IPF
Chronic heart failure preserved EF -echocardiogram shows LV EF 60 to 65%, mild concentric LVH, bioprosthetic AVR with mild paravalvular aortic regurg, mild MS. Unclear if she has a component of acute heart failure exacerbation. Discussed with
cardiology, plan for right heart catheterization. Hold off on further Lasix given rising creatinine.
FONG cirrhosis
Acute thrombocytopenia - improved to 135k, unclear etiology. Monitor for now. Possible HIT but doubt type II.
Hepatocellular carcinoma -recently diagnosed on abdominal MRI last month. Follow-up as an outpatient. She had an appointment to see specialist this . Will need to reschedule.
Aortic stenosis -second TAVR procedure done in December of this year.
Chronic iron deficiency anemia -followed by hematology, Dr. Diggs. Last iron infusion was a month ago. Hemoglobin 8.2 today, stable.
Essential hypertension -stable.
Orthostatic hypotension -on midodrine.
DM 2 without hyperglycemia -hemoglobin A1c unreliable in the setting of chronic anemia. Glucose 104 this morning. On at home.
Hyperlipidemia -continue rosuvastatin.
Hypothyroidism -continue levothyroxine.
Anxiety/depression
Chronic peripheral diabetic neuropathy
Full code
Anticipated Discharge: > 48 hours
Subjective/Interval History
-
Date of Service: March 27, 2024
Patient seen and examined. No new complaints. No shortness of breath currently.
Objective Data
-
Labs:
Laboratory Results
03/27/24
07:02
WBC 6.5
Hgb 8.2 L
Hct 25.4 L
Plt Count 135
Sodium 132 L
Potassium 5.0
Chloride 99
Carbon Dioxide 22
BUN 39 H
Creatinine 1.3 H
Glucose 104 H
Calcium 10.2
Total Bilirubin 0.3
AST 52 H
ALT 28
Alkaline Phosphatase 104
Vital Signs:
Vital Signs
Temp Pulse Resp BP Pulse Ox
98.3 F 68 16 111/44 97
03/27/24 07:35 03/27/24 08:10 03/27/24 08:10 03/27/24 08:27 03/27/24 08:10
I&O
03/26/24 03/27/24 03/28/24
06:59 06:59 06:59
Intake Total 570 / 570 1280 / 1280
Output Total 1750 / 1750
Balance -1180 / -1180 1280 / 1280
Review of Systems
-
History Source: Patient
All other systems: Reviewed and negative
[2024-03-27 11:43] LABS: Glucose - Point of Care 123 mg/dl (70-99)
[2024-03-27 12:58] LABS: Glucose - Point of Care 105 mg/dl (70-99)
--- NOTE | 2024-03-27 14:00 | ITS.CL.CATH ---
Reefer Truck Driver - Catheterization
Cardiac Catheterization
Procedure Report:
RIGHT HEART CATHETERIZATION
Date of Procedure: 03/27/2024
Referring: Lennox Abrams MD
INDICATION: Unclear volume status with worsening renal function
RHC performed at weight 123 pounds
RA: 7
RV: 38/10
PA: 38/14
PCWP: 12
Oximetry: Ao 100% (via sat monitor), PA 72%, cardiac output 4.9, cardiac index 3.1
COMPLICATIONS: None
Radiation (mGy): 12.4
DAP (cm2.Gy): 2.1
Fluoroscopy time: 2.6 minutes
CONCLUSION: Normal filling pressures with mild pulmonary hypertension. The patient is euvolemic at weight 123 pounds
Copy to: Lennox Abrams MD, SHARA Becker
Campos Arredondo MD, [facility], [facility]
--- NOTE | 2024-03-27 15:09 | CM ---
army manager reviewed patient's chart and spoke with patient and daughter at bedside, patient states she is weak, and needs more therapy, physician reached out to pillowcase maker for further evaluation for skilled placement, pillowcase maker spoke with
patient and she is agreeable to skilled placement at [facility] if they have a bed, pillowcase maker faxed over a referral and [facility] can accept patient today. Patient to bring own inhalers to rehab and daughter to provide transport to [facility], patient
will need her own oxygen for transport to [facility], patient's daughter is aware.
[facility]
Report [phone]

Plan; Transfer to [facility] today.
--- NOTE | 2024-03-27 15:29 | PTCARENOTE ---
recieved from ammunition assembly laborer. right groin insertion site intact. no s/s of bleeding/hematoma. vascular checks initiated as per protocol. patient on bed rest. restrictions explained and understanding verbalized. family at bedside. patient will be
discharged later today to [facility]. family providing transport.
[2024-03-27] MEDS: DUPHALAC/CHRONULAC 10 GRAMS PO (16:05)
--- NOTE | 2024-03-27 16:05 | W.DS.TRANS ---
DC Summary - Circle Beveler
-
Discharge Instructions:
Sleep Apnea Risk Low
Discharge Diagnosis/Procedures Acute on chronic respiratory failure,
interstitial pulmonary fibrosis, acute kidney
injury, chronic anemia
Diet 2 Gram Sodium
Activity As tolerated,With assistance
Driving Restrictions No driving
Bathing Restrictions None
Instructions: *CBC Heart Failure Instructions
Stand-Alone Forms: DC Instructions- Cath/EP Lab
Changes to Home Medications: No
Discharge Medications:
DC Medications w/original date entered in [employer]
aspirin 81 mg tablet,delayed release 81 mg PO DAILY Blood Clot Prevention/Tx 08/11/16
fluticasone furoate 100 mcg/actuation blister powder for inhalation (Arnuity Ellipta) 1 inh inhalation R DAILY Lung/Breathing Issues 10/30/23
gabapentin 300 mg capsule 300 mg PO HS Neurological Condition 10/30/23
levothyroxine 112 mcg tablet 112 mcg PO MOTUWETHFRSA Thyroid 10/30/23
rosuvastatin 10 mg tablet 10 mg PO QPM High Cholesterol 10/30/23
sitagliptin phosphate 50 mg-metformin 1,000 mg tablet (Janumet) 1 tab PO BID@0800,1700 Diabetes 10/30/23
therapeutic multivitamin 1 tab PO HS Supplement 10/30/23
vibegron 75 mg tablet (Gemtesa) 75 mg PO DAILY Urinary Issue 10/30/23
albuterol sulfate 90 mcg/actuation aerosol inhaler 2 puff inhalation R Q6HPRN PRN sob 11/28/23
coQ10 (ubiquinol) 100 mg capsule 100 mg PO DAILY Supplement 11/28/23
midodrine 5 mg tablet 5 mg PO BID Blood Pressure 01/30/24
thiamine HCl (vitamin B1) 100 mg tablet 100 mg PO DAILY Supplement 01/30/24
bupropion HCl 150 mg 24 hr tablet, extended release (Wellbutrin XL) 150 mg PO DAILY depression/anxiety 03/24/24
famotidine 40 mg tablet (Pepcid) 40 mg PO DAILY Gastrointestinal Issue 03/24/24
furosemide 20 mg tablet (Lasix) 20 mg PO DAILY Fluid Retention/Swelling 03/24/24
lactulose 10 gram/15 mL oral solution 10 g PO DAILY@1400 liver disease/FONG 03/24/24
levothyroxine 112 mcg tablet (Synthroid) 224 mcg PO MCCLAIN Thyroid 03/24/24
rifaximin 550 mg tablet (Xifaxan) 550 mg PO BID liver disease/FONG 03/24/24
spironolactone 50 mg tablet 50 mg PO DAILY Blood Pressure/edema 03/24/24
ipratropium 0.5 mg-albuterol 3 mg (2.5 mg base)/3 mL nebulization soln 3 ml inhalation R Q4HPRN PRN shortness of breath #0 mL 03/27/24
lorazepam 0.5 mg tablet 0.5 mg PO DAILYPRN PRN anxiety #3 tabs 03/27/24
polyethylene glycol 3350 17 gram oral powder packet (HealthyLax) 17 g PO DAILYPRN PRN constipation #0 ea 03/27/24
prednisone 10 mg tablet 10 mg PO DIRECTED #40 tabs 03/27/24
Home Medication Changes
Pending Results: No
[2024-03-27 16:21] LABS: Glucose - Point of Care 162 mg/dl (70-99)
[2024-03-27] MEDS: NOVOLOG FLEXPEN-LOW RESISTANCE 1 UNITS SC (16:21)
== END 2024-03-27 18:31 | DRG 196 ==
LOC: 4 WEST ACU 21:22
PROVIDERS: Internal Medicine Cardiovascular Disease; Nurse Practitioner Family; ADMITTING PHYSICIAN Internal Medicine; ATTENDING PHYSICIAN Hospitalist; EMERGENCY PHYSICIAN Emergency Medicine; FAMILY PHYSICIAN Internal Medicine; OTHER PHYSICIAN Internal Medicine; OTHER PHYSICIAN Internal Medicine Cardiovascular Disease
PROC: 4A023N6 Measurement of Cardiac Sampling and Pressure, Right Heart, Percutaneous Approach (ICD-10-PCS; 2024-03-27)
PROC: B2111ZZ Fluoroscopy of Multiple Coronary Arteries using Low Osmolar Contrast (ICD-10-PCS; 2024-03-27)
PROC: B2141ZZ Fluoroscopy of Right Heart using Low Osmolar Contrast (ICD-10-PCS; 2024-03-27)
DX: J84.112 Idiopathic pulmonary fibrosis (principal); I50.33 Acute on chronic diastolic (congestive) heart failure; J96.21 Acute and chronic respiratory failure with hypoxia; E46 Unspecified protein-calorie malnutrition; I85.10 Secondary esophageal varices without bleeding; E87.1 Hypo-osmolality and hyponatremia; N17.9 Acute kidney failure, unspecified; E87.20 Acidosis, unspecified; I11.0 Hypertensive heart disease with heart failure; I95.1 Orthostatic hypotension; D63.8 Anemia in other chronic diseases classified elsewhere; E03.9 Hypothyroidism, unspecified; F32.A Depression, unspecified; F41.9 Anxiety disorder, unspecified; Z79.82 Long term (current) use of aspirin; D69.6 Thrombocytopenia, unspecified; E11.40 Type 2 diabetes mellitus with diabetic neuropathy, unspecified; E78.00 Pure hypercholesterolemia, unspecified; Z68.21 Body mass index [BMI] 21.0-21.9, adult; Z11.52 Encounter for screening for COVID-19
CPT/HCPCS: 71046; 71275; 80053; 81003; 81015; 82962; 83036; 83605; 83735; 83880; 84484; 85025; 85027; 85610; 85730; 87811; 93005; 93306; 93451; 94640; 96374; 97116; 97163; 97166; 97530; 99285; C1894; Q9967

== ENCOUNTER → 2024-04-01 13:39 | Outpatient (REF) | payer OTHER, MEDICARE, BC, SELFPAY ==
[2024-04-01 13:52] LABS: % Basophils 0.5 % (0-2); % Eosinophils 0.8 % (0-6); % Immature Granulocytes 0.3 % (0-0.5); % Monocytes 12.2 % (1.7-9.3); % Neutrophils 70.2 % (42.2-75.2); Absolute Eosinophils 0.1 10^3/uL (0-0.7); Absolute Lymphocytes 1.3 10^3/uL (1.2-3.4); Absolute Neutrophils 5.5 10^3/uL (1.4-6.5); Hematocrit 23.1 % (37.0-47.0); Hemoglobin 7.3 g/dL (12.0-16.0); Mean Corp Hgb Conc. 31.6 g/dL (33.0-37.0); Mean Corpuscular Volume 95.1 fL (81.0-99.0); Mean Platelet Volume 11.2 fL (7.4-10.4); Nucleated Red Blood Cells % 0 %; Platelet Count 133 10^3/uL (130-400); Red Blood Cell Count 2.43 10^6/uL (4.20-5.40); Red Cell Dist. Width 16.4 % (11.5-14.5); White Blood Cell Count 7.9 10^3/uL (4.8-10.8)
[2024-04-01 14:11] LABS: ALT (SGPT) 33 U/L (0-35); AST (SGOT) 49 U/L (14-36); Albumin 3.3 g/dl (3.5-5.0); Alkaline Phosphatase 79 U/L (38-126); Blood Urea Nitrogen 36 mg/dl (7-17); Calcium 10.1 mg/dl (8.4-10.2); Carbon Dioxide 25 mmol/L (22-30); Chloride 101 mmol/L (98-107); Glucose 154 mg/dl (70-99); Potassium 4.6 mmol/L (3.5-5.1); Sodium 134 mmol/L (135-145); Total Bilirubin 0.3 mg/dl (0.2-1.3); Total Protein 6.6 g/dl (6.3-8.2); eGFR > 60.00
== END ==
LOC: OLABP 13:39
PROVIDERS: ATTENDING PHYSICIAN Family Medicine
DX: I50.9 Heart failure, unspecified (principal); N17.9 Acute kidney failure, unspecified; D69.6 Thrombocytopenia, unspecified; C22.0 Liver cell carcinoma; E11.40 Type 2 diabetes mellitus with diabetic neuropathy, unspecified
CPT/HCPCS: 36415; 80053; 85025

== ENCOUNTER → 2024-04-04 10:59 | Outpatient (REF) | payer OTHER, MEDICARE, BC, SELFPAY ==
[2024-04-04 12:20] LABS: % Basophils 0.4 % (0-2); % Eosinophils 2.1 % (0-6); % Immature Granulocytes 0.5 % (0-0.5); % Lymphocytes 19.8 % (20.5-51.1); % Monocytes 11.5 % (1.7-9.3); % Neutrophils 65.7 % (42.2-75.2); Absolute Eosinophils 0.2 10^3/uL (0-0.7); Absolute Lymphocytes 1.7 10^3/uL (1.2-3.4); Absolute Neutrophils 5.6 10^3/uL (1.4-6.5); Hematocrit 22.3 % (37.0-47.0); Mean Corp Hgb Conc. 31.4 g/dL (33.0-37.0); Mean Corpuscular Hgb 29.8 pg (27.0-31.0); Mean Corpuscular Volume 94.9 fL (81.0-99.0); Mean Platelet Volume 10.4 fL (7.4-10.4); Nucleated Red Blood Cells % 0 %; Platelet Count 135 10^3/uL (130-400); Red Blood Cell Count 2.35 10^6/uL (4.20-5.40); Red Cell Dist. Width 16.3 % (11.5-14.5); White Blood Cell Count 8.5 10^3/uL (4.8-10.8)
[2024-04-04 19:15] LABS: Urine Albumin Negative (Neg - Trace); Urine Bilirubin Negative (Negative); Urine Character Clear (Clear); Urine Color Yellow; Urine Glucose 1+ (Negative); Urine Ketone Trace (Negative); Urine Leukocyte Negative (Negative); Urine Nitrite Negative (Negative); Urine Occult Blood Negative (Negative); Urine Specific Gravity 1.015 (<1.030); Urine Urobilinogen Negative (Neg - 1+)
== END ==
LOC: OLABP 10:59
PROVIDERS: ATTENDING PHYSICIAN Family Medicine
DX: J84.112 Idiopathic pulmonary fibrosis (principal); I50.32 Chronic diastolic (congestive) heart failure; N17.9 Acute kidney failure, unspecified; D69.6 Thrombocytopenia, unspecified; C22.0 Liver cell carcinoma; K75.81 Nonalcoholic steatohepatitis (NASH); M62.81 Muscle weakness (generalized); E11.40 Type 2 diabetes mellitus with diabetic neuropathy, unspecified; I95.9 Hypotension, unspecified; I11.0 Hypertensive heart disease with heart failure; N39.0 Urinary tract infection, site not specified
CPT/HCPCS: 36415; 81003; 85025; 87086

== ENCOUNTER 2024-04-07 13:32 | Emergency (ER) | payer MEDICARE, BC, SELFPAY ==
[2024-04-07] VITALS (7 sets, daily range): BP systolic 118–155; BP diastolic 51–60
[2024-04-07 13:58] LABS: % Basophils 0.3 % (0-2); % Eosinophils 0.1 % (0-6); % Immature Granulocytes 0.6 % (0-0.5); % Monocytes 5.1 % (1.7-9.3); % Neutrophils 87.9 % (42.2-75.2); Absolute Immature Granulocytes 0.1 10^3/uL (0-0.05); Absolute Lymphocytes 0.6 10^3/uL (1.2-3.4); Absolute Monocytes 0.5 10^3/uL (0.1-0.6); Absolute Neutrophils 8.2 10^3/uL (1.4-6.5); Hematocrit 26.8 % (37.0-47.0); Mean Corp Hgb Conc. 33.6 g/dL (33.0-37.0); Mean Corpuscular Hgb 29.7 pg (27.0-31.0); Mean Corpuscular Volume 88.4 fL (81.0-99.0); Mean Platelet Volume 9.7 fL (7.4-10.4); Nucleated Red Blood Cells % 0 %; Platelet Count 220 10^3/uL (130-400); Red Blood Cell Count 3.03 10^6/uL (4.20-5.40); Red Cell Dist. Width 16.3 % (11.5-14.5); White Blood Cell Count 9.3 10^3/uL (4.8-10.8)
[2024-04-07 14:12] LABS: ALT (SGPT) 52 U/L (0-35); AST (SGOT) 73 U/L (14-36); Albumin 4.4 g/dl (3.5-5.0); Alkaline Phosphatase 77 U/L (38-126); Blood Urea Nitrogen 39 mg/dl (7-17); Calcium 10.8 mg/dl (8.4-10.2); Carbon Dioxide 23 mmol/L (22-30); Chloride 96 mmol/L (98-107); Glucose 265 mg/dl (70-99); Potassium 4.6 mmol/L (3.5-5.1); Sodium 134 mmol/L (135-145); Total Bilirubin 0.7 mg/dl (0.2-1.3); Total Protein 7.9 g/dl (6.3-8.2); eGFR 41.75
[2024-04-07 14:22] LABS: Troponin I 0.016 ng/ml
--- NOTE | 2024-04-07 14:40 | ED.GENMED ---
History of Present Illness
General
Chief Complaint: Breathing Problem
Source: patient, records and family
Exam Limitations: none
Time Seen by Provider: 04/07/24 14:09
Nursing documentation reviewed up to this point in time: agreed with
Travel History
Have you had any contact with someone who has COVID-19?: No
Do you have any symptoms of coronavirus? Fever > 100 degrees, chills, cough, shortness of breath, sore throat, loss of taste or smell, muscle aches, or headache?: No
History of Present Illness
History of Present Illness:
Patient is a 64-year-old female with a history of idiopathic pulmonary fibrosis as well as the time of our who presents with increased shortness of breath for the past 3 to 4 days. Patient's last hemoglobin was 7. Patient gets periodic
transfusions. Patient also gets iron infusions which she has not had in a week. Patient denies fever or chills, cough, nasal congestion or sore throat. Patient denies chest pain or palpitations. Patient's appetite is diminished but denies any
other GI or symptoms. Patient denies any leg pain or swelling. Patient spoke with her american sign language teacher about getting transfused and unfortunately the infusion unit is not open today and was instructed to come to the emergency department.
Past History
Past History
ED Past Medical History: GERD, HTN, Hypercholesterolemia, IDDM, Valvular disease, Hypothyroidism and Other (Pulmonary fibrosis, FONG , Varices of the esophagus, Hiatal hernia)
ED Past Surgical History: Cardiac (TAVR. )
Social History
Tobacco: Non-smoker
Alcohol: Occasional
Drug: None
Personal:
Living: alone
Review of Systems
Review of Systems
All Other Systems: ROS reviewed and negative except as documented in HPI and ROS
Constitutional: Reports fatigue; Denies fever or chills
EENT: Reports no symptoms
Respiratory: Reports trouble breathing; Denies cough
Cardiac: Reports no symptoms
ABD/GI: Reports no symptoms
: Reports no symptoms
Musculoskeletal: Reports no symptoms
Skin: Reports no symptoms
Neurological: Reports no symptoms
Hematologic/Lymphatic: Reports no symptoms
Phy Exam
Physical Exam
Physical Exam:
Physical Exam
General: mild distress, alert and appropriate, well nourished, well hydrated. Appears chronically ill and older than stated age
HENT: Normocephalic, supple with no lymphadenopathy, no thyromegaly
Eyes: Clear sclera, conjuctiva without injection
Heart: Regular rhythm and rate. No S3, S4. Grade 3/6 holosystolic murmur heard best at the base. No NVD
Lungs: No respiratory distress, no stridor, lung sounds are diminished and coarse but otherwise clear and equal bilaterally
Abdomen: Soft, nontender, no organomegaly, no CVA tenderness, BS good
Neuro: Alert and oriented x 3, CN II - XII intact, no motor focality
Skin: no rash
Psychiatric: well kept. interactive and cooperative
Extremities: No edema, cyanosis, tenderness, Good and equal peripheral pulses.
Scores
Heart Failure Risk
Heart Failure Risk Score: Not Applicable
Heart Score for Chest Pain Patients
STEMI patient?: Not applicable
Withdrawal Assessment of Alcohol
Withdrawal Assessment Completed?: Not applicable
Course
Orders/Labs/Results
Orders:
Orders
04/07/24 13:43
EKG [Electrocardiogram (*1)] Urgent
Reason for Study: Shortness of Breath
EKG- Treatment ONCE
04/07/24 13:44
CR Chest - 2 Views Urgent
Comment:
Reason For Exam: SOB
04/07/24 13:50
Type+Screen Urgent
Complete Blood Count/With Diff Urgent
Comprehensive Metabolic Panel Urgent
Prothrombin Time Urgent
Troponin I Urgent
04/07/24 14:54
HGB [Hemoglobin] Urgent
Hematocrit Urgent
04/07/24 16:52
Ipratropium/Albuterol Sulfate [Duoneb] 3 ml INH R NOW STA
Abnormal Lab Results
04/07/24 04/07/24
13:50 14:54
RBC 3.03 L 10^6/uL
(4.20-5.40)
Hgb 9.0 L D g/dL 8.5 L g/dL
(12.0-16.0) (12.0-16.0)
Hct 26.8 L % 25.7 L %
(37.0-47.0) (37.0-47.0)
RDW 16.3 H %
(11.5-14.5)
Abs Immat Gran (auto) 0.1 H 10^3/uL
(0-0.05)
Absolute Neuts (auto) 8.2 H 10^3/uL
(1.4-6.5)
Absolute Lymphs (auto) 0.6 L 10^3/uL
(1.2-3.4)
Immature Gran % 0.6 H %
(0-0.5)
Neutrophils % 87.9 H %
(42.2-75.2)
Lymphocytes % 6.0 L %
(20.5-51.1)
PT 15.0 H Sec
(11.4-14.6)
Sodium 134 L mmol/L
(135-145)
Chloride 96 L mmol/L
(98-107)
BUN 39 H mg/dl
(7-17)
Creatinine 1.4 H mg/dL
(0.6-1.0)
Glucose 265 H mg/dl
(70-99)
Calcium 10.8 H mg/dl
(8.4-10.2)
AST 73 H U/L
(14-36)
ALT 52 H U/L
(0-35)
04/07/24 14:54
04/07/24 13:50
Vital Signs
Initial and Last Documented VS:
Initial Vital Signs
Temp Pulse Resp BP Pulse Ox
98.5 F 98 22 155/60 90
04/07/24 13:33 04/07/24 13:33 04/07/24 13:33 04/07/24 13:33 04/07/24 13:33
Last Documented Vital Signs
Temp Pulse Resp BP Pulse Ox
98.5 F 81 23 132/55 99
04/07/24 13:33 04/07/24 17:30 04/07/24 17:30 04/07/24 17:00 04/07/24 16:15
*Radiology
Radiology exam reviewed: radiology read reviewed
*Pulse Oximetry
Patient hypoxic: no
*EKG
Interpreted by ED Provider?: Yes
EKG Intrepretation Date: 04/07/24
EKG Intrepretation Time: 14:46
Interpretation: abnormal
Comparison EKG: no changes
Heart Rate: 79
Rate: normal
Rhythm: sinus
[place]: normal axis
Interval: normal interval
QRS Pattern: left vent hypertrophy
Ischemia: no ischemia
*Second Operator Interpretation
Rate: normal
Interpretation: normal
Heart Rate: 80
Rhythm: sinus
*Critical Care Note
Total Time (30-74mins, 75-104mins- exclusive of procedures): Not Applicable
Update Note
Update Note:
Patient's hemoglobin initially came back at 9 it was rechecked it was 8.5. This does not seem to be the etiology of the patient's dyspnea. Patient denies fever does feel short of breath and is been short of breath for a few days. Patient needs to
use a walker at home. Patient does have a nebulizer at home. Patient denies chest pain. Based on her echocardiogram and right heart catheterization on her last admission in the middle of this month do not believe this is CHF. Additionally her
chest x-ray does not show any signs of congestive heart failure. The patient denies any history of PE or DVT. Patient is on aspirin. I will try a nebulized treatment on the patient and anticipate being will send her home.
ED Attending Note
-
Portions of this chart may have been created with voice recognition software.� Occasional wrong word or��sound alike� substitutions may have occurred due to the inherent limitations of voice recognition software.
Discharge Plan
Departure
Patient Disposition: Home (Routine Discharge)
Patient with high blood pressure during this ER visit?: No
Condition: Fair
Covid-19: Not Applicable
Discharge Problem:
Dyspnea, Interstitial pulmonary fibrosis
Instructions: Shortness of Breath (Dyspnea) (DC)
Prescriptions:
No Action
aspirin 81 MG tablet,delayed release (DR/EC)
81 mg PO DAILY
therapeutic multivitamin Tablet
1 tab PO HS
gabapentin 300 mg Capsule
300 mg PO HS
levothyroxine 112 mcg Tablet
112 mcg PO MOTUWETHFRSA
rosuvastatin 10 mg Tablet
10 mg PO QPM
Janumet 50-1,000 mg Tablet
1 tab PO BID@0800,1700
Arnuity Ellipta 100 mcg/actuation Blister With Device
1 inh INHALATION R DAILY
Gemtesa 75 mg Tablet
75 mg PO DAILY
albuterol sulfate 90 mcg/actuation Hfa Aerosol Inhaler
2 puff INHALATION R Q6HPRN PRN (Reason: sob)
coQ10 (ubiquinol) 100 mg Capsule
100 mg PO DAILY
midodrine 5 mg tablet
5 mg PO BID
thiamine HCl (vitamin B1) 100 mg Tablet
100 mg PO DAILY
famotidine [Pepcid] 40 mg Tablet
40 mg PO DAILY
furosemide [Lasix] 20 mg Tablet
20 mg PO DAILY
spironolactone 50 mg Tablet
50 mg PO DAILY
levothyroxine [Synthroid] 112 mcg Tablet
224 mcg PO MCCLAIN
bupropion HCl [Wellbutrin XL] 150 mg Tablet Extended Release 24 Hr
150 mg PO DAILY
lactulose 10 gram/15 mL Solution
10 g PO DAILY@1400
Xifaxan 550 mg Tablet
550 mg PO BID
ipratropium-albuterol 0.5 mg-3 mg(2.5 mg base)/3 mL Solution For Nebulization
3 ml inhalation R Q4HPRN PRN (Reason: shortness of breath) Qty: 0 0RF
polyethylene glycol 3350 [HealthyLax] 17 gram Powder In Packet
17 g PO DAILYPRN PRN (Reason: constipation) Qty: 0 0RF
lorazepam 0.5 mg Tablet
0.5 mg PO DAILYPRN PRN (Reason: anxiety) Qty: 3 0RF
prednisone 10 mg tablet
10 mg PO DIRECTED Qty: 40 0RF
Rx Instructions:
4 tabs daily x4 days, then 3 tabs daily x4days, then 2 tabs daily x4days, then on 04/09-04/12-1 tab daily x4days.
insulin aspart U-100 [Novolog FlexPen U-100 Insulin] 100 unit/mL (3 mL) Insulin Pen
1 sliding scale dose SC AC
Rx Instructions:
201-250=2units, 251-300=4units, 301-350=6units
Referrals:
Sally Taylor NP [Family Provider] - Follow up in 2-3 days
Activity Restrictions/Additional Instructions:
Continue present medications and therapy. Use a walker if needed. If worsening shortness of breath, chest pain, fever or chills please feel free to return otherwise follow-up with your physician in the next 2 to 3 days.
Interventions
Interventions:
*Risk Screen - Suicide Last Done: 04/07/24 13:33
*General Assessment Last Done: 04/07/24 13:33
*Neglect/Abuse Screening Last Done: 04/07/24 13:33
*ED COVID-19 Vaccine History Last Done: 04/07/24 13:33
*Nursing Disposition Last Done: 04/07/24 17:49
ED- Cardiac Assessment Last Done: 04/07/24 13:55
ED- Pulmonary Assessment Last Done: 04/07/24 13:48
Discharge Date and Time
Discharge Date/Time: 04/07/24 17:49
Print Language: KAZAKH
[2024-04-07 15:09] LABS: Hematocrit 25.7 % (37.0-47.0); Hemoglobin 8.5 g/dL (12.0-16.0)
[2024-04-07] MEDS: DUONEB 3 ML INH (16:57)
== END 2024-04-07 17:49 | disposition home or self-care (01) ==
LOC: EMR 13:32
PROVIDERS: Student in an Organized Health Care Education/Training Program; EMERGENCY PHYSICIAN Emergency Medicine; FAMILY PHYSICIAN Internal Medicine
DX: J84.10 Pulmonary fibrosis, unspecified (principal); J84.112 Idiopathic pulmonary fibrosis; K21.9 Gastro-esophageal reflux disease without esophagitis; I11.9 Hypertensive heart disease without heart failure; E11.9 Type 2 diabetes mellitus without complications; E03.9 Hypothyroidism, unspecified; E78.00 Pure hypercholesterolemia, unspecified; I38 Endocarditis, valve unspecified; K44.9 Diaphragmatic hernia without obstruction or gangrene; I85.00 Esophageal varices without bleeding; R06.00 Dyspnea, unspecified
CPT/HCPCS: 99283; 94640; 71046; 80053; 84484; 85014; 85018; 85025; 85610; 86850; 86900; 86901; 93005

== ENCOUNTER 2024-04-09 15:39 | Emergency (ER) | payer MEDICARE, BC, SELFPAY ==
[2024-04-09 15:43] VITALS: BP 129/66
[2024-04-09 16:09] LABS: % Basophils 0.6 % (0-2); % Eosinophils 3.6 % (0-6); % Immature Granulocytes 0.7 % (0-0.5); % Lymphocytes 8.4 % (20.5-51.1); % Monocytes 16.5 % (1.7-9.3); % Neutrophils 70.2 % (42.2-75.2); Absolute Basophils 0.1 10^3/uL (0-0.2); Absolute Eosinophils 0.6 10^3/uL (0-0.7); Absolute Immature Granulocytes 0.1 10^3/uL (0-0.05); Absolute Lymphocytes 1.3 10^3/uL (1.2-3.4); Absolute Monocytes 2.6 10^3/uL (0.1-0.6); Absolute Neutrophils 11.1 10^3/uL (1.4-6.5); Hematocrit 28.3 % (37.0-47.0); Mean Corp Hgb Conc. 31.8 g/dL (33.0-37.0); Mean Corpuscular Hgb 29.4 pg (27.0-31.0); Mean Corpuscular Volume 92.5 fL (81.0-99.0); Mean Platelet Volume 9.9 fL (7.4-10.4); Nucleated Red Blood Cells % 0 %; Platelet Count 234 10^3/uL (130-400); Red Blood Cell Count 3.06 10^6/uL (4.20-5.40); Red Cell Dist. Width 15.9 % (11.5-14.5); White Blood Cell Count 15.8 10^3/uL (4.8-10.8)
[2024-04-09 16:23] LABS: AST (SGOT) 67 U/L (14-36); Albumin 4.2 g/dl (3.5-5.0); Blood Urea Nitrogen 32 mg/dl (7-17); Calcium 11.1 mg/dl (8.4-10.2); Carbon Dioxide 22 mmol/L (22-30); Glucose 180 mg/dl (70-99); Potassium 4.9 mmol/L (3.5-5.1); Total Bilirubin 0.8 mg/dl (0.2-1.3); Total Protein 7.6 g/dl (6.3-8.2); eGFR 50.23
[2024-04-09 16:33] LABS: Troponin I 0.028 ng/ml
[2024-04-09 16:51] LABS: ALT (SGPT) 48 U/L (0-35); Chloride 99 mmol/L (98-107); Sodium 134 mmol/L (135-145)
[2024-04-09 17:00] LABS: NT-proBNP 107 pg/ml
[2024-04-09 17:17] LABS: Alkaline Phosphatase 81 U/L (38-126)
[2024-04-09 18:15] VITALS: BP 123/54
[2024-04-09 18:21] VITALS: BMI 21.5
--- NOTE | 2024-04-09 18:29 | ED.GENMED ---
History of Present Illness
General
Chief Complaint: Breathing Problem
Source: patient
Time Seen by Provider: 04/09/24 18:05
Travel History
Have you had any contact with someone who has COVID-19?: No
Do you have any symptoms of coronavirus? Fever > 100 degrees, chills, cough, shortness of breath, sore throat, loss of taste or smell, muscle aches, or headache?: No
History of Present Illness
History of Present Illness:
64-year-old female presents to the emergency room for shortness of breath. Patient has been having increasing shortness of breath over the past several days. Patient has a history of interstitial lung disease. She was recently hospitalized at
[place] for several days. She was discharged on a taper of steroids as it was thought her increase shortness breath at that time was due to a interstitial lung disease flare. Patient also has a history of anemia. Her primary care doctor
thought that she might benefit from a transfusion which is the primary reason she was sent here to the emergency room today. Patient denies any active bleeding. She does receive iron infusions from time to time. She has a cough which she
describes as chronic. It is nonproductive. She denies any fever. Her steroid dose has been tapered down to 10 mg. She is due to stop it and a couple days.
Past History
Past History
ED Past Medical History: GERD, HTN, Hypercholesterolemia, IDDM, Valvular disease, Hypothyroidism and Other (Pulmonary fibrosis, LYNN , Varices of the esophagus, Hiatal hernia)
ED Past Surgical History: Cardiac (TAVR. )
Social History
Tobacco: Non-smoker
Alcohol: Occasional
Drug: None
Personal:
Living: alone
Phy Exam
Physical Exam
Physical Exam:
General: Awake, Alert, Oriented X3. No acute distress.
Vitals: unremarkable
Head: Atraumatic
Eyes: Pupils equal, EOMI
Throat: Airway intact, no exudates
Neck: Trachea midline
Lungs: Clear and equal b/l
Heart: Regular rate, no murmurs
Abd: Soft, Nontender, No pulsatile mass
Neuro: No focal
Skin: Warm, dry, no rash
Extremities: pulses equal b/l, no edema
Scores
Heart Failure Risk
Heart Failure Risk Score: Not Applicable
Course
Orders/Labs/Results
Orders:
Orders
04/09/24 15:46
ECG [Electrocardiogram (*1)] Urgent
Reason for Study: Shortness of Breath
EKG- Treatment ONCE
CR Chest - 2 Views Urgent
Comment:
Reason For Exam: SOB
04/09/24 15:54
Complete Blood Count/With Diff Urgent
Comprehensive Metabolic Panel Urgent
NT-proBNP Urgent
Troponin I Urgent
04/09/24 18:28
0.9% Sodium Chloride 250 ml [Nss] 250 ml IV BOLUS
04/09/24 19:26
MethylPREDNISolone PF [Solu-Medrol Pf] 60 mg IV ONCE ONE
04/09/24 20:05
Fosfomycin [Monurol] 3 gm PO ONCE ONE
Abnormal Lab Results
04/09/24
15:54
WBC 15.8 H 10^3/uL
(4.8-10.8)
RBC 3.06 L 10^6/uL
(4.20-5.40)
Hgb 9.0 L g/dL
(12.0-16.0)
Hct 28.3 L %
(37.0-47.0)
MCHC 31.8 L g/dL
(33.0-37.0)
RDW 15.9 H %
(11.5-14.5)
Abs Immat Gran (auto) 0.1 H 10^3/uL
(0-0.05)
Absolute Neuts (auto) 11.1 H 10^3/uL
(1.4-6.5)
Absolute Monos (auto) 2.6 H 10^3/uL
(0.1-0.6)
Immature Gran % 0.7 H %
(0-0.5)
Lymphocytes % 8.4 L %
(20.5-51.1)
Monocytes % 16.5 H %
(1.7-9.3)
Sodium 134 L mmol/L
(135-145)
BUN 32 H mg/dl
(7-17)
Creatinine 1.2 H mg/dL
(0.6-1.0)
Glucose 180 H mg/dl
(70-99)
Calcium 11.1 H mg/dl
(8.4-10.2)
AST 67 H U/L
(14-36)
ALT 48 H U/L
(0-35)
04/09/24 15:54
04/09/24 15:54
Vital Signs
Initial and Last Documented VS:
Initial Vital Signs
Temp Pulse Resp BP Pulse Ox
97.6 F 84 20 129/66 96
04/09/24 15:43 04/09/24 15:43 04/09/24 15:43 04/09/24 15:43 04/09/24 15:43
Last Documented Vital Signs
Temp Pulse Resp BP Pulse Ox
97.6 F 74 21 144/64 97
04/09/24 15:43 04/09/24 21:30 04/09/24 18:30 04/09/24 21:00 04/09/24 21:30
MDM/Problems Addressed
Differential Diagnosis Includes:
Symptomatic anemia, pneumonia, exacerbation of inflammatory lung disease
MDM/Problems Addressed:
Patient sent to the emergency room for continued and worsening dyspnea. She was discharged on 3 L of oxygen nasal cannula and is now on 5 L. Workup here reveals her hemoglobin to be stable at 9. The patient was hoping that her shortness of breath
was worse due to anemia and she would benefit from a blood transfusion. I cannot justify a blood transfusion with a hemoglobin of 9. Labs show mildly BUN and creatinine but in line with her recent labs dating back to February 03. Therefore I do not
believe volume contraction is playing a significant role in her symptoms. Chest x-ray appears unchanged. The patient has taper down her steroids to 10 mg. I believe that her worsening shortness of breath may be related to the lower steroid dose.
Discussed the patient's presentation with Dr. Coronado who is on-call for pulmonary. He recommends Solu-Medrol now and increasing her prednisone to 40 mg a day. The plan was to hospitalize the patient for close monitoring and further pulmonary
evaluation however the patient has a appointment with a mine utility operator downtown that she does not want to miss. She will leave AGAINST MEDICAL ADVICE to make this appointment. I discussed with her the need for increase steroids and a taper over a
couple weeks. I also communicated with the patient's family doctor, Dr. Espinoza who sent her in. She will follow-up closely with the patient. Patient or stands to return should she feel increasing shortness of breath or otherwise feel like she is
getting worse.
Chronic conditions affecting care: HTN and Other (Inflammatory lung disease, [place])
*Radiology
Radiology exam reviewed: radiology read reviewed
*Pulse Oximetry
Patient hypoxic: yes
*EKG
Interpretation: normal
Heart Rate: 85
Rate: normal
Rhythm: sinus
[place]: normal axis
Interval: normal interval
QRS Pattern: normal QRS
Ischemia: no ischemia
*Contract Administrative Assistant Interpretation
Rate: normal
Interpretation: normal
Rhythm: sinus
*Critical Care Note
Total Time (30-74mins, 75-104mins- exclusive of procedures): Not Applicable
Patient Management
Social determinants of health affecting care: Living situation
ED Attending Note
-
Portions of this chart may have been created with voice recognition software.� Occasional wrong word or��sound alike� substitutions may have occurred due to the inherent limitations of voice recognition software.
Discharge Plan
Departure
Patient Disposition: Against Medical Advice
Date of Disposition: 04/09/24
Time of Disposition: 19:30
Discharge Problem:
Acute dyspnea, Hypoxia, Interstitial lung disease
Instructions: Shortness of Breath (Dyspnea) (DC)
Prescriptions:
New
prednisone 10 mg tablet
10 mg PO DIRECTED Qty: 75 0RF
Rx Instructions:
50mg x 5 days
40mg x 5 days
30mg x 5 days
20mg x 5 days
10mg x 5 days
No Action
aspirin 81 MG tablet,delayed release (DR/EC)
81 mg PO DAILY
therapeutic multivitamin Tablet
1 tab PO HS
gabapentin 300 mg Capsule
300 mg PO HS
levothyroxine 112 mcg Tablet
112 mcg PO MOTUWETHFRSA
rosuvastatin 10 mg Tablet
10 mg PO QPM
Janumet 50-1,000 mg Tablet
1 tab PO BID@0800,1700
Arnuity Ellipta 100 mcg/actuation Blister With Device
1 inh INHALATION R DAILY
Gemtesa 75 mg Tablet
75 mg PO DAILY
albuterol sulfate 90 mcg/actuation Hfa Aerosol Inhaler
2 puff INHALATION R Q6HPRN PRN (Reason: sob)
coQ10 (ubiquinol) 100 mg Capsule
100 mg PO DAILY
midodrine 5 mg tablet
5 mg PO BID
thiamine HCl (vitamin B1) 100 mg Tablet
100 mg PO DAILY
famotidine [Pepcid] 40 mg Tablet
40 mg PO DAILY
furosemide [Lasix] 20 mg Tablet
20 mg PO DAILY
spironolactone 50 mg Tablet
50 mg PO DAILY
levothyroxine [Synthroid] 112 mcg Tablet
224 mcg PO MCCLAIN
bupropion HCl [Wellbutrin XL] 150 mg Tablet Extended Release 24 Hr
150 mg PO DAILY
lactulose 10 gram/15 mL Solution
10 g PO DAILY@1400
Xifaxan 550 mg Tablet
550 mg PO BID
ipratropium-albuterol 0.5 mg-3 mg(2.5 mg base)/3 mL Solution For Nebulization
3 ml inhalation R Q4HPRN PRN (Reason: shortness of breath) Qty: 0 0RF
polyethylene glycol 3350 [HealthyLax] 17 gram Powder In Packet
17 g PO DAILYPRN PRN (Reason: constipation) Qty: 0 0RF
lorazepam 0.5 mg Tablet
0.5 mg PO DAILYPRN PRN (Reason: anxiety) Qty: 3 0RF
prednisone 10 mg tablet
10 mg PO DIRECTED Qty: 40 0RF
Rx Instructions:
4 tabs daily x4 days, then 3 tabs daily x4days, then 2 tabs daily x4days, then on 04/09-04/12-1 tab daily x4days.
insulin aspart U-100 [Novolog FlexPen U-100 Insulin] 100 unit/mL (3 mL) Insulin Pen
1 sliding scale dose SC AC
Rx Instructions:
201-250=2units, 251-300=4units, 301-350=6units
Referrals:
Sally Taylor NP [Family Provider] -
Interventions
Interventions:
*Risk Screen - Suicide Last Done: 04/09/24 15:43
*General Assessment Last Done: 04/09/24 15:43
*Neglect/Abuse Screening Last Done: 04/09/24 15:43
ED- Fall Risk Assessment Last Done: 04/09/24 22:00
*ED COVID-19 Vaccine History Last Done: 04/09/24 22:00
*Nursing Disposition Last Done: 04/09/24 22:02
ED- Cardiac Assessment Last Done: 04/09/24 18:21
ED- Pulmonary Assessment Last Done: 04/09/24 18:21
Discharge Date and Time
Discharge Date/Time: 04/09/24 22:04
Print Language: AZERI
[2024-04-09] MEDS: NSS 250 IV (18:54)
[2024-04-09 19:00] VITALS: BP 135/60
[2024-04-09] MEDS: SOLU-MEDROL PF 60 MG IV (19:33)
[2024-04-09 20:00] VITALS: BP 139/56
[2024-04-09] MEDS: MONUROL 3 GM PO (20:24)
[2024-04-09 21:00] VITALS: BP 144/64
== END 2024-04-09 22:04 | disposition left against medical advice (07) ==
LOC: EMR 15:39
PROVIDERS: Emergency Medicine; EMERGENCY PHYSICIAN Emergency Medicine; FAMILY PHYSICIAN Internal Medicine
DX: R06.09 Other forms of dyspnea (principal); R09.02 Hypoxemia; J84.9 Interstitial pulmonary disease, unspecified
CPT/HCPCS: 99285; 96374; 96361; 71046; 80053; 83880; 84484; 85025; 93005

== ENCOUNTER → 2024-05-21 09:18 | Outpatient (REF) | payer MEDICARE, BC, SELFPAY ==
[2024-05-21 10:22] LABS: % Basophils 2.1 % (0-2); % Immature Granulocytes 0.3 % (0-0.5); % Lymphocytes 15.2 % (20.5-51.1); % Monocytes 15.5 % (1.7-9.3); % Neutrophils 60.9 % (42.2-75.2); Absolute Basophils 0.1 10^3/uL (0-0.2); Absolute Eosinophils 0.4 10^3/uL (0-0.7); Absolute Lymphocytes 0.9 10^3/uL (1.2-3.4); Absolute Monocytes 0.9 10^3/uL (0.1-0.6); Absolute Neutrophils 3.7 10^3/uL (1.4-6.5); Hemoglobin 9.9 g/dL (12.0-16.0); Mean Corpuscular Hgb 30.6 pg (27.0-31.0); Mean Corpuscular Volume 92.6 fL (81.0-99.0); Nucleated Red Blood Cells % 0 %; Red Blood Cell Count 3.24 10^6/uL (4.20-5.40); Red Cell Dist. Width 23.7 % (11.5-14.5); White Blood Cell Count 6.1 10^3/uL (4.8-10.8)
[2024-05-21 11:03] LABS: ALT (SGPT) 37 U/L (0-35); AST (SGOT) 59 U/L (14-36); Albumin 3.6 g/dl (3.5-5.0); Alkaline Phosphatase 116 U/L (38-126); Blood Urea Nitrogen 16 mg/dl (7-17); Calcium 10.4 mg/dl (8.4-10.2); Carbon Dioxide 28 mmol/L (22-30); Chloride 103 mmol/L (98-107); Glucose 130 mg/dl (70-99); Iron 78 ug/dl (37-170); Magnesium 2.1 mg/dl (1.6-2.3); Phosphorus 3.1 mg/dl (2.5-4.5); Potassium 4.5 mmol/L (3.5-5.1); Sodium 137 mmol/L (135-145); Total Bilirubin 0.7 mg/dl (0.2-1.3); Total Protein 6.8 g/dl (6.3-8.2); eGFR 41.75
[2024-05-21 11:15] LABS: Intact PTH 31.2 pg/ml (13.6-85.8)
[2024-05-21 11:19] LABS: Percent Saturation 23 % (20-50); Total Iron Binding Capacity 326 ug/dl (265-497)
[2024-05-21 11:22] LABS: Free T4 1.79 ng/dl (0.78-2.19); Vitamin D, 25-OH*** 32.8 ng/mL (30-80)
[2024-05-21 11:36] LABS: TSH 8.42 uIU/ml (0.47-4.68)
[2024-05-21 11:52] LABS: Mean Platelet Volume 9.9 fL (7.4-10.4); Platelet Count 137 10^3/uL (130-400)
[2024-05-21 12:00] LABS: Glycohemoglobin (HgbA1c) 5.4 % (4.0-5.6)
[2024-05-21 12:15] LABS: Protein/creatinine Ratio 0.1; Urine Protein 6 mg/dl
[2024-05-21 12:19] LABS: Microalbumin, Random Urine 1.3 mg/dl (0.6-1.7); Microalbumin/creatinine Ratio 16.1 mg/g
== END ==
LOC: REG 09:18
PROVIDERS: ATTENDING PHYSICIAN Internal Medicine Hematology & Oncology; FAMILY PHYSICIAN Internal Medicine Endocrinology, Diabetes & Metabolism; OTHER PHYSICIAN Internal Medicine Cardiovascular Disease; REFERRING PHYSICIAN Internal Medicine Nephrology
DX: R60.0 Localized edema (principal); D50.9 Iron deficiency anemia, unspecified; D47.2 Monoclonal gammopathy; E11.9 Type 2 diabetes mellitus without complications; N18.31 Chronic kidney disease, stage 3a; D63.1 Anemia in chronic kidney disease; E11.21 Type 2 diabetes mellitus with diabetic nephropathy
CPT/HCPCS: 36415; 80053; 82043; 82306; 82570; 82728; 83036; 83540; 83550; 83735; 83970; 84100; 84156; 84439; 84443; 85025

== ENCOUNTER → 2024-07-01 18:19 | Outpatient (REF) | payer MEDICARE, BC, SELFPAY | LOC: WDC 18:19 | PROVIDERS: ATTENDING PHYSICIAN Obstetrics & Gynecology; FAMILY PHYSICIAN Internal Medicine | DX: Z12.31 Encounter for screening mammogram for malignant neoplasm of breast (principal) | CPT/HCPCS: 77063; 77067 ==

== ENCOUNTER → 2024-07-10 07:08 | Outpatient (REF) | payer MEDICARE, BC, SELFPAY | LOC: PAVMRI 07:08 | PROVIDERS: ATTENDING PHYSICIAN Nurse Practitioner Acute Care; FAMILY PHYSICIAN Internal Medicine Transplant Hepatology | DX: C22.0 Liver cell carcinoma (principal) | CPT/HCPCS: 74183; A9581 ==

== ENCOUNTER 2024-07-10 19:28 | Inpatient (IN) | payer MEDICARE, BC, SELFPAY ==
[2024-07-10] VITALS (8 sets, daily range): BP systolic 121–128; BP diastolic 50–63; BMI 21.8; BMI 24.7
[2024-07-10 15:33] LABS: % Basophils 1.6 % (0-2); % Eosinophils 4.4 % (0-6); % Immature Granulocytes 1.4 % (0-0.5); % Lymphocytes 10.6 % (20.5-51.1); % Monocytes 17.5 % (1.7-9.3); % Neutrophils 64.5 % (42.2-75.2); Absolute Basophils 0.1 10^3/uL (0-0.2); Absolute Eosinophils 0.3 10^3/uL (0-0.7); Absolute Immature Granulocytes 0.1 10^3/uL (0-0.05); Absolute Lymphocytes 0.8 10^3/uL (1.2-3.4); Absolute Monocytes 1.3 10^3/uL (0.1-0.6); Absolute Neutrophils 4.9 10^3/uL (1.4-6.5); Hematocrit 32.8 % (37.0-47.0); Hemoglobin 11.5 g/dL (12.0-16.0); Mean Corp Hgb Conc. 35.1 g/dL (33.0-37.0); Mean Corpuscular Hgb 31.3 pg (27.0-31.0); Mean Corpuscular Volume 89.4 fL (81.0-99.0); Mean Platelet Volume 9.8 fL (7.4-10.4); Nucleated Red Blood Cells % 0 %; Platelet Count 179 10^3/uL (130-400); Red Blood Cell Count 3.67 10^6/uL (4.20-5.40); Red Cell Dist. Width 16.1 % (11.5-14.5); White Blood Cell Count 7.7 10^3/uL (4.8-10.8)
[2024-07-10 15:38] LABS: ALT (SGPT) 35 U/L (0-35); AST (SGOT) 65 U/L (14-36); Albumin 4.3 g/dl (3.5-5.0); Alkaline Phosphatase 126 U/L (38-126); Blood Urea Nitrogen 24 mg/dl (7-17); COVID-19 Antigen Negative (Negative); Calcium 11.1 mg/dl (8.4-10.2); Carbon Dioxide 22 mmol/L (22-30); Chloride 98 mmol/L (98-107); Glucose 153 mg/dl (70-99); Sodium 137 mmol/L (135-145); Total Protein 7.8 g/dl (6.3-8.2); eGFR 55.76
--- NOTE | 2024-07-10 16:19 | ED.GENMED ---
History of Present Illness
General
Chief Complaint: Breathing Problem
Source: patient and family (Daughter)
Exam Limitations: none
Time Seen by Provider: 07/10/24 16:05
Nursing documentation reviewed up to this point in time: agreed with
History of Present Illness
History of Present Illness:
64-year-old female presents emergency room complaining of feeling woozy, weakness and shortness of breath, headache cough for the past week. She saw her primary care doctor today and was sent in for low oxygen. Her oxygen is usually 4 L nasal
cannula. In triage it was increased to 6 L, which brought it up to 88% from 85%. She has a history of pulmonary fibrosis and aortic stenosis.
Past History
Past History
ED Past Medical History: GERD, HTN, Hypercholesterolemia, IDDM, Valvular disease, Hypothyroidism and Other (Pulmonary fibrosis, FONG , Varices of the esophagus, Hiatal hernia)
ED Past Surgical History: Cardiac (TAVR. )
Social History
Tobacco: Non-smoker
Alcohol: Occasional
Drug: None
Personal:
Living: alone
Review of Systems
Review of Systems
Allergies reviewed?: Yes
All Other Systems: Not applicable
Constitutional: Reports fatigue
EENT: Reports no symptoms
Respiratory: Reports cough and trouble breathing
Cardiac: Reports no symptoms
ABD/GI: Reports nausea
: Reports no symptoms
Musculoskeletal: Reports no symptoms
Skin: Reports no symptoms
Neurological: Reports no symptoms
Endocrine: Reports no symptoms
Hematologic/Lymphatic: Reports no symptoms
Psychiatric: Reports no symptoms
Phy Exam
Physical Exam
Physical Exam:
Physical Exam
General: no apparent distress, not acutely ill
Neck: supple. no meningeal signs. normal posterior pharynx
Heart: s1/s2 regular rate and rhythm, systolic ejection murmur. equal radial
pulses.
HEENT: Pupils equal round reactive to light, EOMI
Lungs: no acute respiratory distress. clear bilaterally
Abdomen: normal bowel sounds. not tender. no CVAT
Neuro: alert and oriented. no focal neurological deficits cranial nerves II through XII intact
Skin: no rash
Psychiatric: well kept. interactive and cooperative
Extremities: no edema. no calf tenderness. negative homans. good distal pulses
Scores
Heart Failure Risk
Heart Failure Risk Score: Not Applicable
Course
Orders/Labs/Results
Orders:
Orders
07/10/24 Dinner
Cholesterol Lowering
At Your Request: Full Participation
Does patient need a safe tray?: No
Cholesterol Lowering: Sodium, 2 Gram
07/10/24 15:12
COVID-19 Antigen Urgent
Source: Nasal Swab
Complete Blood Count/With Diff Urgent
Comprehensive Metabolic Panel Urgent
Influenza A+B Rapid Molecular Urgent
ZHEN Source: Nasal Swab
Specimen Description:
07/10/24 16:09
Electrocardiogram (*1) Urgent
Reason for Study: Shortness of Breath
EKG- Treatment ONCE
07/10/24 16:19
CR Chest - 2 Views Urgent
Comment:
Reason For Exam: short of breath, hypoxia
07/10/24 17:47
NT-proBNP Urgent
Troponin I Urgent
07/10/24 18:40
Dexamethasone Sod Phosphate [Decadron] 10 mg IV NOW STA
07/10/24 18:59
Admit/Transfer Patient As Directed
Co-Sign Provider:
Level of Care: Inpatient admission
Assign to:: Telemetry
Physician / Group: sonu
Diagnosis: interstitial fibrosis flare
Reason for Telemetry: Arrhythmia
Date to Stop Telemetry: 07/13/24
Time to Stop Telemetry: 11:00
Reason for Hospitalization: interstitial fibrosis flare
Expected length of stay greater than two midnights?: Yes
ELOS- Estimated Length of Stay in days: 2
I certify the patient meets the requirements for IP care: Yes
PRN Pain Medication Management As Directed
May give lesser potent ordered pain med per pt: Yes
preference::
Protocol:: Medication orders for pain may be administered in a
manner that supports deferring to patient preference
when the pt is:
- Requesting an ordered lesser potent pain medication.
Least to most potent pain medications are defined
as: acetaminophen < NSAID < tramadol < opioids
(morphine, oxycodone, hydromorphone).
- Requesting a lesser dose of the same medication IF
ORDERED.
- Requesting a less intrusive route of administration
if both routes are prescribed by the provider (PO <
IV).
07/10/24 19:00
Code Status As Directed
Resuscitation Status: Full Code
07/10/24 20:39
Acetaminophen [Tylenol] 650 mg PO Q4HPRN PRN
Dextrose 50%-Water [Dextrose 50% Syringe] 12.5 grams IV [id number] PRN
Glucagon [GlucaGen] 1 mg IM PRN PRN
Heparin 5,000 units SC Q12
Ipratropium/Albuterol Sulfate [Duoneb] 3 ml INH R Q4HPRN PRN
Lorazepam [Ativan] 0.5 mg PO DAILYPRN PRN
Polyethylene Glycol Powder [Miralax] 17 grams PO DAILYPRN PRN
07/10/24 20:39
Activity As Directed
Activity Level: As Tolerated
Bedside Glucose Monitoring As Directed
Frequency: AC&HS
Additional Instructions:: Change to q6h if pt on TPN, tube feeding or not eating
Vital Signs As Directed
Frequency: Per unit guidelines
DX Deep Vein Thrombosis Video Routine
07/10/24 22:00
Gabapentin [Neurontin] 300 mg PO HS
Multivitamin [Theragran] 1 tablet PO HS
07/11/24 06:00
Complete Blood Count/With Diff IN AM
Comprehensive Metabolic Panel IN AM
Glycohemoglobin (HgbA1c) IN AM
Levothyroxine [Synthroid] 112 mcg PO [id number]@0600
07/11/24 07:30
Insulin Aspart Corrective Low [Novolog Flexpen-Low Resistance] See Protocol SC AC
07/11/24 08:00
Aspirin Low Dose EC [Aspir Low (Enteric Coated)] 81 mg PO DAILY
Bupropion(24Hr)Extended Releas [WELLBUTRIN XL (24 hour extended release)] 150 mg PO DAILY
Dexamethasone Sod Phosphate [Decadron] 4 mg IV Q12H
FLUTICASONE PROPIONATE 44 mcg [Flovent 44 Mcg Inhaler] 2 puff INH R BID
Famotidine [Pepcid] 20 mg PO DAILY
Furosemide [Lasix] 20 mg PO DAILY
Midodrine [ProAmatine] 5 mg PO BID AT 0800,1700
Sitagliptin Phosphate [Januvia] 50 mg PO BID@0800,1700
Spironolactone [Aldactone] 50 mg PO DAILY
Thiamine HCl [Vitamin B1] 100 mg PO DAILY
Tolterodine Extended Release [Detrol LA] 4 mg PO DAILY
07/11/24 14:00
Lactulose [Duphalac/Chronulac] 10 grams PO DAILY@1400
07/11/24 18:00
Rosuvastatin Calcium [Crestor] 10 mg PO QPM
07/13/24 06:00
Levothyroxine [Synthroid] 224 mcg PO MCCLAIN@0600
07/13/24 11:00
DC Protocol for Telemetry ONCE
Abnormal Lab Results
07/10/24 07/10/24
15:12 19:22
RBC 3.67 L 10^6/uL
(4.20-5.40)
Hgb 11.5 L g/dL
(12.0-16.0)
Hct 32.8 L %
(37.0-47.0)
MCH 31.3 H pg
(27.0-31.0)
RDW 16.1 H %
(11.5-14.5)
Abs Immat Gran (auto) 0.1 H 10^3/uL
(0-0.05)
Absolute Lymphs (auto) 0.8 L 10^3/uL
(1.2-3.4)
Absolute Monos (auto) 1.3 H 10^3/uL
(0.1-0.6)
Immature Gran % 1.4 H %
(0-0.5)
Lymphocytes % 10.6 L %
(20.5-51.1)
Monocytes % 17.5 H %
(1.7-9.3)
BUN 24 H mg/dl
(7-17)
Creatinine 1.1 H mg/dL
(0.6-1.0)
Glucose 153 H mg/dl
(70-99)
Calcium 11.1 H mg/dl
(8.4-10.2)
AST 65 H U/L
(14-36)
POC Glucose 132 H mg/dl
(70-99)
07/10/24 15:12
07/10/24 15:12
Vital Signs
Initial and Last Documented VS:
Initial Vital Signs
Temp Pulse Resp BP Pulse Ox
98.7 F 99 18 121/63 88
07/10/24 15:02 07/10/24 15:02 07/10/24 15:02 07/10/24 15:02 07/10/24 15:02
Last Documented Vital Signs
Temp Pulse Resp BP Pulse Ox
97.7 F 85 16 127/61 98
07/10/24 20:40 07/10/24 20:40 07/10/24 20:40 07/10/24 20:40 07/10/24 20:40
MDM/Problems Addressed
Differential Diagnosis Includes:
COPD exacerbation, pulmonary fibrosis, CHF exacerbation
MDM/Problems Addressed:
64-year-old female with pulmonary fibrosis exacerbation. Admit to hospitalist.
Chronic conditions affecting care: Cardiomyopathy and Other (Pulmonary fibrosis)
Acute Exacerbation and/or Progression of Chronic Illness: Cardiomyopathy and Other (Pulmonary fibrosis)
*Radiology
Radiology exam reviewed: radiology read reviewed (Chest x-ray shows low lung volumes with increased interstitial opacification)
*Pulse Oximetry
Patient hypoxic: yes
*EKG
Interpreted by ED Provider?: Yes
EKG Intrepretation Date: 07/10/24
EKG Intrepretation Time: 16:28
Interpretation: abnormal
Comparison EKG: changes noted
Heart Rate: 87
Rate: normal
Rhythm: PAC's
[place]: normal axis
Interval: normal interval
QRS Pattern: left vent hypertrophy
Ischemia: no ischemia
*[employer] Loss Prevention Investigator Interpretation
Rate: normal
Interpretation: normal
Heart Rate: 88
Rhythm: sinus
*Critical Care Note
Total Time (30-74mins, 75-104mins- exclusive of procedures): Not Applicable
Patient Management
Discussion with other providers: Hospitalist
Escalation/DeEscalation of care consider admission/obs:
Admitted indicated I still
ED Attending Note
-
Portions of this chart may have been created with voice recognition software.� Occasional wrong word or��sound alike� substitutions may have occurred due to the inherent limitations of voice recognition software.
Discharge Plan
Departure
Patient Disposition: Admit
Date of Disposition: 07/10/24
Time of Disposition: 18:38
Admit to: Telemetry
Presentation/result/management discussed w/ accepting MD/DO: Hospitalist
Patient with high blood pressure during this ER visit?: Yes
Condition: Fair
Discharge Problem:
Acute on chronic hypoxic respiratory failure, Interstitial pulmonary fibrosis
Interventions
Interventions:
*Risk Screen - Suicide Last Done: 07/10/24 16:05
*General Assessment Last Done: 07/10/24 16:05
*Neglect/Abuse Screening Last Done: 07/10/24 16:05
ED- Fall Risk Assessment Last Done: 07/10/24 16:05
*ED COVID-19 Vaccine History Last Done: 07/10/24 21:12
*Nursing Disposition Last Done: 07/10/24 20:34
ED- Cardiac Assessment Last Done: 07/10/24 16:05
ED- Pulmonary Assessment Last Done: 07/10/24 16:05
Discharge Date and Time
Discharge Date/Time: 07/10/24 20:35
[2024-07-10 16:31] LABS: Glucose - Point of Care 89 mg/dl (70-99)
[2024-07-10 18:30] LABS: NT-proBNP 84.8 pg/ml; Troponin I < 0.012 ng/ml
--- NOTE | 2024-07-10 19:01 | HPS.HSE ---
Family Physician
-
Family Physician: Sally Taylor
Chief Complaint
-
shortness of breath
History of Present Illness
64-year-old female with past medical history of chronic hypoxemic respiratory failure on 4 L baseline secondary to interstitial pulmonary fibrosis, chronic HFpEF, FONG cirrhosis, hepatocellular carcinoma, aortic stenosis status post TAVR, CKD 3,
iron deficiency anemia, hypertension, orthostatic hypotension, diabetes, hyperlipidemia, hypothyroidism, anxiety/depression, chronic peripheral diabetic neuropathy, presenting for weakness, dizziness and shortness of breath and dry cough for the
past few weeks with worsening of symptoms. She denies any fevers or chills. She denies any chest pain. She denies any swelling. She has lost weight recently.
She saw her primary care physician and was sent in for low oxygen level. She increased her oxygen from 4 to 6 L in the emergency room.
She denies smoking or alcohol use.
Medical History
Past Medical History
Past Medical History: Reports Other (chronic hypoxemic respiratory failure on 4 L baseline secondary to interstitial pulmonary fibrosis, chronic HFpEF, FONG cirrhosis, hepatocellular carcinoma, aortic stenosis status post TAVR, CKD 3, iron
deficiency anemia, hypertension, orthostatic hypotension, diabetes, hyperlipidemia, hypothyroidis)
Past Surgical History: Reports Other (TAVR)
Social History
Tobacco: Non-smoker
Alcohol: None
Drug: None
Family History
Family History: Not pertinent
Allergies / Home Medications
Allergies reflects when Allergies were last updated in [employer].
Home Medications with original date entered in [employer]
Allergy/Medication List:
Allergies
Allergy/AdvReac Type Severity Reaction Status Date / Time
nitrofurantoin Allergy Rash Verified 07/10/24 15:02
[From Macrobid]
Penicillins Allergy Rash Verified 07/10/24 15:02
Sulfa (Sulfonamide Allergy Rash Verified 07/10/24 15:02
Antibiotics)
Home Medications
aspirin 81 mg tablet,delayed release 81 mg PO DAILY Blood Clot Prevention/Tx 08/11/16
fluticasone furoate 100 mcg/actuation blister powder for inhalation (Arnuity Ellipta) 1 inh inhalation R DAILY Lung/Breathing Issues 10/30/23
gabapentin 300 mg capsule 300 mg PO HS Neurological Condition 10/30/23
levothyroxine 112 mcg tablet 112 mcg PO MOTUWETHFRSA Thyroid 10/30/23
rosuvastatin 10 mg tablet 10 mg PO QPM High Cholesterol 10/30/23
sitagliptin phosphate 50 mg-metformin 1,000 mg tablet (Janumet) 1 tab PO BID@0800,1700 Diabetes 10/30/23
therapeutic multivitamin 1 tab PO HS Supplement 10/30/23
vibegron 75 mg tablet (Gemtesa) 75 mg PO DAILY Urinary Issue 10/30/23
albuterol sulfate 90 mcg/actuation aerosol inhaler 2 puff inhalation R Q6HPRN PRN sob 11/28/23
coQ10 (ubiquinol) 100 mg capsule 100 mg PO DAILY Supplement 11/28/23
midodrine 5 mg tablet 5 mg PO BID Blood Pressure 01/30/24
thiamine HCl (vitamin B1) 100 mg tablet 100 mg PO DAILY Supplement 01/30/24
bupropion HCl 150 mg 24 hr tablet, extended release (Wellbutrin XL) 150 mg PO DAILY depression/anxiety 03/24/24
famotidine 40 mg tablet (Pepcid) 40 mg PO DAILY Gastrointestinal Issue 03/24/24
furosemide 20 mg tablet (Lasix) 20 mg PO DAILY Fluid Retention/Swelling 03/24/24
lactulose 10 gram/15 mL oral solution 10 g PO DAILY@1400 liver disease/FONG 03/24/24
levothyroxine 112 mcg tablet (Synthroid) 224 mcg PO MCCLAIN Thyroid 03/24/24
rifaximin 550 mg tablet (Xifaxan) 550 mg PO BID liver disease/FONG 03/24/24
spironolactone 50 mg tablet 50 mg PO DAILY Blood Pressure/edema 03/24/24
ipratropium 0.5 mg-albuterol 3 mg (2.5 mg base)/3 mL nebulization soln 3 ml inhalation R Q4HPRN PRN shortness of breath #0 mL 03/27/24
lorazepam 0.5 mg tablet 0.5 mg PO DAILYPRN PRN anxiety #3 tabs 03/27/24
polyethylene glycol 3350 17 gram oral powder packet (HealthyLax) 17 g PO DAILYPRN PRN constipation #0 ea 03/27/24
prednisone 10 mg tablet 10 mg PO DIRECTED #40 tabs 03/27/24
insulin aspart U-100 100 unit/mL (3 mL) subcutaneous pen (Novolog FlexPen U-100 Insulin aspart) 1 sliding scale dose SC AC 04/07/24
prednisone 10 mg tablet 10 mg PO DIRECTED #75 tabs 04/09/24
Review of Systems
-
History Source: Patient
A 12 point ROS was completed and negative except as noted: Yes
Constitutional: Reports No Symptoms
EENT: Reports No Symptoms
Respiratory: Reports See HPI
Cardiac: Reports No Symptoms
Abdomen/GI: Reports No Symptoms
: Reports No Symptoms
Musculoskeletal: Reports No Symptoms
Skin: Reports No Symptoms
Neurological: Reports No Symptoms
Endocrine: Reports No Symptoms
Hematologic/Lymphatic: Reports No Symptoms
Psych: Reports No Symptoms
Physical Exam
Vital Signs
Vital Signs
Temp Pulse Resp BP Pulse Ox
98.7 F 82 18 124/56 96
07/10/24 15:02 07/10/24 17:45 07/10/24 15:02 07/10/24 17:00 07/10/24 17:45
Physical Exam
General: Well Developed, Well Nourished and No Apparent Distress
HEENT: NormoCephalic, Moist mucous membranes and Atraumatic
Respiratory: Crackles
Cardiac: S1/S2 and Regular Rhythm; No Murmur or Rub
GI: Soft, Non Tender, Non Distended and Normal Bowel Sounds; No Organomegaly
Rectal: Deferred by Provider
Musculoskeletal: No Clubbing, No Cyanosis and No Edema
Skin: No Rash
Neuro: Nonfocal/grossly intact
Laboratory Results
-
07/10/24 15:12
07/10/24 15:12
Laboratory Results
Total Bilirubin 1.0 mg/dl (0.2-1.3) 07/10/24 15:12
AST 65 U/L (14-36) H 07/10/24 15:12
ALT 35 U/L (0-35) 07/10/24 15:12
Alkaline Phosphatase 126 U/L (38-126) 07/10/24 15:12
Troponin I < 0.012 ng/ml 07/10/24 17:47
Data Reviewed
-
Lab Data: Labs Reviewed by me
Old Records: Reviewed
Impression/Plan
-
IMPRESSION:
PLAN:
# Acute on chronic hypoxemic respiratory failure secondary to interstitial pulmonary fibrosis flare
-Normally on 4 L, now on 6 L
-COVID-negative
-Chest x-ray shows low lung volumes with increased interstitial opacification, likely mild edema superimposed on chronic lung changes
-Cardiac BNP negligible
-DuoNebs every 6 hours
-Dexamethasone 4 mg every 12
-Continue Arnuity Ellipta,
-Pulmonary consulted
Chronic HFpEF
-Continue Lasix
FONG cirrhosis
-Continue Xifaxan
-Continue spironolactone
-Continue lactulose
Hepatocellular carcinoma
Aortic stenosis status post TAVR
-Continue aspirin
Chronic kidney disease stage III
Iron deficiency anemia
Essential hypertension
Orthostatic hypotension
-Continue midodrine
Type 2 diabetes
-Continue Janumet
-Insulin sliding scale
Diabetic neuropathy
Hyperlipidemia
-Continue statin
Hypothyroidism
-Continue levothyroxine
Anxiety/depression
-Continue Ativan
-Continue bupropion
Full code
DVT prophylaxis heparin
cardiac diet
[2024-07-10] MEDS: DECADRON 10 MG IV (19:06)
[2024-07-10 19:24] LABS: Glucose - Point of Care 132 mg/dl (70-99)
--- NOTE | 2024-07-10 20:45 | PTCARENOTE ---
Pt transferred to 3W from ED via stretcher. Pt 1 assist/standby from stretcher to bed. Vital signs stable, pt [id number] able to make needs known. Oriented to room, call storey within reach. Will continue to monitor.
[2024-07-10 21:38] LABS: Glucose - Point of Care 342 mg/dl (70-99)
[2024-07-10] MEDS: HEPARIN 5000 UNITS SC (21:41)
[2024-07-10] MEDS: NEURONTIN 300 MG PO (21:42)
[2024-07-10] MEDS: THERAGRAN 1 TABLET PO (21:42)
[2024-07-10] MEDS: NOVOLOG FLEXPEN 10 UNITS SC (21:56)
[2024-07-11] VITALS (7 sets, daily range): BP systolic 103–131; BP diastolic 54–60; PULSE 83; O2SAT 95; BMI 24.6
[2024-07-11] MEDS: ATIVAN 0.5 MG PO ×2 (00:02→21:31)
[2024-07-11] MEDS: SYNTHROID 112 MCG PO (05:49)
[2024-07-11 07:40] LABS: % Basophils 0.3 % (0-2); % Immature Granulocytes 0.6 % (0-0.5); % Lymphocytes 16.7 % (20.5-51.1); % Monocytes 6.8 % (1.7-9.3); % Neutrophils 75.6 % (42.2-75.2); Absolute Lymphocytes 0.6 10^3/uL (1.2-3.4); Absolute Monocytes 0.2 10^3/uL (0.1-0.6); Absolute Neutrophils 2.5 10^3/uL (1.4-6.5); Hematocrit 29.9 % (37.0-47.0); Hemoglobin 10.2 g/dL (12.0-16.0); Mean Corp Hgb Conc. 34.1 g/dL (33.0-37.0); Mean Corpuscular Hgb 30.2 pg (27.0-31.0); Mean Corpuscular Volume 88.5 fL (81.0-99.0); Mean Platelet Volume 9.5 fL (7.4-10.4); Nucleated Red Blood Cells % 0 %; Platelet Count 137 10^3/uL (130-400); Red Blood Cell Count 3.38 10^6/uL (4.20-5.40); White Blood Cell Count 3.4 10^3/uL (4.8-10.8)
[2024-07-11] MEDS: FLOVENT 44 MCG INHALER 2 PUFF INH ×2 (07:52→18:23)
[2024-07-11 07:56] LABS: ALT (SGPT) 33 U/L (0-35); AST (SGOT) 57 U/L (14-36); Albumin 3.6 g/dl (3.5-5.0); Alkaline Phosphatase 120 U/L (38-126); Blood Urea Nitrogen 30 mg/dl (7-17); Calcium 10.5 mg/dl (8.4-10.2); Carbon Dioxide 23 mmol/L (22-30); Chloride 98 mmol/L (98-107); Estimated Creatinine Clearance 37 ml/min; Glucose 270 mg/dl (70-99); Potassium 5.2 mmol/L (3.5-5.1); Sodium 135 mmol/L (135-145); Total Bilirubin 0.9 mg/dl (0.2-1.3); eGFR 55.76
[2024-07-11 08:09] LABS: Glucose - Point of Care 241 mg/dl (70-99)
--- NOTE | 2024-07-11 08:23 | W.PN.HOSP.TC ---
Addendum entered and electronically signed by Suhail Dunn MD 07/11/24 16:11:
#Hyperkalemia
Low potassium diet
Original Note:
Today's Communication/Plan
-
See bold
Assessment / Plan
Assessment / Plan
HPI: 64-year-old female with previous history of chronic hypoxemic respiratory failure on 4 L baseline, IPF, chronic heart failure with preserved ejection fraction, FONG cirrhosis, HCC, status post TAVR, chronic kidney disease presenting with
generalized weakness, dizziness and shortness of breath for the past few weeks with acute onset worsening of symptoms in the past day. She does not know what triggered her symptoms. She denies any recent illnesses or change in medications. She
was admitted for similar in March and underwent right heart catheterization demonstrating no heart failure. Her current proBNP is also negative.
# Acute on chronic hypoxemic respiratory failure secondary to interstitial pulmonary fibrosis flare
-COVID-negative. Cardiac BNP negligible
-Chest x-ray shows low lung volumes with increased interstitial opacification, likely mild edema superimposed on chronic lung changes
-Was requiring 6 L upon discharge, now back on 4�her baseline
-Continue IV dexamethasone, bronchodilators, pulmonology consulted
#Weakness
PT recommends home care
Chronic HFpEF
-Continue Lasix
FONG cirrhosis
-Continue Xifaxan
-Continue spironolactone
-Continue lactulose
Hepatocellular carcinoma
Aortic stenosis status post TAVR
-Continue aspirin
Chronic kidney disease stage III
Iron deficiency anemia
Essential hypertension
Orthostatic hypotension
-Continue midodrine
Type 2 diabetes
-A1C 6.1
-Continue Janumet
-Insulin sliding scale
Diabetic neuropathy
Hyperlipidemia
-Continue statin
Hypothyroidism
-Continue levothyroxine
Anxiety/depression
-Continue Ativan
-Continue bupropion
DVT prophylaxis�subcu Lovenox
Full code
Total time spent to see the patient on the floor, examine the patient, review data and lab results, discuss treatment plan with patient, nursing staff around 38 minutes.
Physical Exam
General: No acute distress
HEENT: Normocephalic, Atraumatic, EOMI, MMM
Respiratory: Bibasilar crackles
Cardiac: Normal S1/S2, Regular Rate and Rhythm
GI: Soft, Nontender, Nondistended, Normal Bowel Sounds
Extremities: No Clubbing, Cyanosis
Neuro: Nonfocal/Grossly Intact
Psych: Calm, Cooperative
Derm: No Visible lesions
Anticipated Discharge: Within 24 hours
Subjective/Interval History
-
Date of Service: July 11, 2024
Patient reports her dyspnea with activity has improved. She continues to have dry cough. No fever, no vomiting.
Objective Data
-
Labs:
Laboratory Results
07/11/24
06:44
WBC 3.4 L
Hgb 10.2 L
Hct 29.9 L
Plt Count 137 D
Sodium 135
Potassium 5.2 H D
Chloride 98
Carbon Dioxide 23
BUN 30 H
Creatinine 1.1 H
Glucose 270 H
Calcium 10.5 H
Total Bilirubin 0.9
AST 57 H
ALT 33
Alkaline Phosphatase 120
Vital Signs:
Vital Signs
Temp Pulse Resp BP Pulse Ox
97.6 F 74 18 113/55 97
07/11/24 02:57 07/11/24 07:56 07/11/24 07:56 07/11/24 02:57 07/11/24 07:56
I&O
07/10/24 07/11/24 07/12/24
06:59 06:59 06:59
Intake Total 480 / 480
Balance 480 / 480
[2024-07-11] MEDS: NOVOLOG FLEXPEN-LOW RESISTANCE 2 UNITS SC ×2 (08:33→17:49)
[2024-07-11] MEDS: WELLBUTRIN XL (24 hour extended release) 150 MG PO (08:43)
[2024-07-11] MEDS: ALDACTONE 50 MG PO (08:43)
[2024-07-11] MEDS: ASPIR LOW (ENTERIC COATED) 81 MG PO (08:43)
[2024-07-11] MEDS: DETROL LA 4 MG PO (08:43)
[2024-07-11] MEDS: LASIX 20 MG PO (08:44)
[2024-07-11] MEDS: GLUCOPHAGE 1000 MG PO ×2 (08:44→17:48)
[2024-07-11] MEDS: JANUVIA 50 MG PO ×2 (08:44→17:48)
[2024-07-11] MEDS: ProAmatine 5 MG PO ×2 (08:44→17:48)
[2024-07-11] MEDS: DECADRON 4 MG IV ×2 (08:44→20:09)
[2024-07-11] MEDS: HEPARIN 5000 UNITS SC (08:45)
[2024-07-11] MEDS: PEPCID 20 MG PO (08:45)
[2024-07-11 08:49] LABS: Glycohemoglobin (HgbA1c) 6.1 % (4.0-5.6)
[2024-07-11] MEDS: VITAMIN B1 100 MG PO (08:54)
[2024-07-11 11:52] LABS: Glucose - Point of Care 283 mg/dl (70-99)
--- NOTE | 2024-07-11 12:08 | CON.PUL ---
Consultation
Consultation Request
Date/Time Consultation Requested: 07/11/24
Date/Time Consultation Performed: 07/11/24
Performing Provider: Edmar
Reason for Consultation: IPF Flare
Medical History
-
History of Present Illness:
Patient is a 64-year-old female with previous history of chronic hypoxemic respiratory failure on 4 L baseline, IPF, chronic heart failure with preserved ejection fraction, FONG cirrhosis, HCC, status post TAVR, chronic kidney disease presenting
with generalized weakness, dizziness and shortness of breath for the past few weeks with acute onset worsening of symptoms in the past day. She does not know what triggered her symptoms. She denies any recent illnesses or change in medications.
She was admitted for similar in March and underwent right heart catheterization demonstrating no heart failure. Her current proBNP is also negative.
Repeat chest x-ray remains unchanged, does demonstrate low lung volumes overall.
.
Past Medical History
Past Medical History: Other (see list below)
Social History
Tobacco: Former Smoker
Alcohol: None
Drug: None
Family History
Family History: Reviewed & Not Pertinent
Allergies / Home Medications
Allergies
Allergy/AdvReac Type Severity Reaction Status Date / Time
nitrofurantoin Allergy Rash Verified 07/10/24 15:02
[From Macrobid]
Penicillins Allergy Rash Verified 07/10/24 15:02
Sulfa (Sulfonamide Allergy Rash Verified 07/10/24 15:02
Antibiotics)
Home Medications
�Medication �Instructions �Recorded �Confirmed �Last Taken �Type
aspirin 81 mg tablet,delayed 81 mg PO DAILY Blood Clot 08/11/16 07/10/24 07/10/24 History
release Prevention/Tx
fluticasone furoate 100 1 inh inhalation R DAILY 10/30/23 07/10/24 07/10/24 History
mcg/actuation blister powder for Lung/Breathing Issues
inhalation (Arnuity Ellipta)
gabapentin 300 mg capsule 300 mg PO HS Neurological Condition 10/30/23 07/10/24 07/09/24 History
levothyroxine 112 mcg tablet 112 mcg PO MOTUWETHFRSA Thyroid 10/30/23 07/10/24 07/10/24 History
rosuvastatin 10 mg tablet 10 mg PO QPM High Cholesterol 10/30/23 07/10/24 07/09/24 History
sitagliptin phosphate 50 1 tab PO BID@0800,1700 Diabetes 10/30/23 07/10/24 07/10/24 History
mg-metformin 1,000 mg tablet
(Janumet)
therapeutic multivitamin 1 tab PO HS Supplement 10/30/23 07/10/24 07/09/24 History
vibegron 75 mg tablet (Gemtesa) 75 mg PO DAILY Urinary Issue 10/30/23 07/10/24 07/10/24 History
albuterol sulfate 90 mcg/actuation 2 puff inhalation R Q6HPRN PRN sob 11/28/23 07/10/24 01/29/24 History
aerosol inhaler
coQ10 (ubiquinol) 100 mg capsule 100 mg PO DAILY Supplement 11/28/23 07/10/24 07/10/24 History
midodrine 5 mg tablet 5 mg PO BID Blood Pressure 01/30/24 07/10/24 07/10/24 History
thiamine HCl (vitamin B1) 100 mg 100 mg PO DAILY Supplement 01/30/24 07/10/24 07/10/24 History
tablet
bupropion HCl 150 mg 24 hr tablet, 150 mg PO DAILY depression/anxiety 03/24/24 07/10/24 07/10/24 History
extended release (Wellbutrin XL)
famotidine 40 mg tablet (Pepcid) 40 mg PO DAILY Gastrointestinal 03/24/24 07/10/24 07/10/24 History
Issue
furosemide 20 mg tablet (Lasix) 20 mg PO DAILY Fluid 03/24/24 07/10/24 07/10/24 History
Retention/Swelling
lactulose 10 gram/15 mL oral 10 g PO DAILY@1400 liver 03/24/24 07/10/24 07/09/24 History
solution disease/FONG
levothyroxine 112 mcg tablet 224 mcg PO MCCLAIN Thyroid 03/24/24 07/10/24 07/06/24 History
(Synthroid)
spironolactone 50 mg tablet 50 mg PO DAILY Blood Pressure/edema 03/24/24 07/10/24 07/10/24 History
ipratropium 0.5 mg-albuterol 3 mg 3 ml inhalation R Q4HPRN PRN 03/27/24 07/10/24 Unknown Rx
(2.5 mg base)/3 mL nebulization shortness of breath #0 mL
soln
lorazepam 0.5 mg tablet 0.5 mg PO DAILYPRN PRN anxiety #3 03/27/24 07/10/24 Unknown Rx
tabs
polyethylene glycol 3350 17 gram 17 g PO DAILYPRN PRN constipation 03/27/24 07/10/24 Unknown Rx
oral powder packet (HealthyLax) #0 ea
insulin glargine 100 unit/mL (3 1 unit SC .SLIDING SCALE HS 07/10/24 07/10/24 Unknown History
mL) subcutaneous pen (Lantus
Solostar U-100 Insulin)
insulin lispro 100 unit/mL 1 sliding scale dose SC AC 07/10/24 07/10/24 Unknown History
subcutaneous pen
Review of Systems
-
History Source: Patient
All other systems: Negative unless noted
Vitals / Labs / Diagnostic Testing
Vital Signs
Temp Pulse Resp BP Pulse Ox
97.9 F 74 18 103/54 97
07/11/24 07:30 07/11/24 07:56 07/11/24 07:56 07/11/24 07:30 07/11/24 07:56
Lab Data
07/11/24 06:44
07/11/24 06:44
Microbiology
07/10/24 15:12 Nasal Swab Influenza Types A & B (ROSALINDA) - Final
Negative for Influenza A & B, NAAT
Negative results must be combined with clinical observations
and patient history.
Nucleic Acid Amplification test (NAAT)performed on the
[employer] platform.
Diagnostic Testing:
Physical Exam
-
HEENT: Normocephalic, Anicteric and Moist Mucous Membranes
Cardiovascular: S1/S2 and Regular Rhythm
Respiratory: Clear and Non-Labored Respirations
GI: Soft, Non Distended and Non Tender
Neurology: Awake, Alert, Oriented, AO x 3 and No Motor Deficits
Skin: Warm, Dry and Good Color
General: Comfortable and Other (NAD)
Assessment
-
Patient is a 64-year-old female with previous history of chronic hypoxemic respiratory failure on 4 L baseline, IPF, chronic heart failure with preserved ejection fraction, FONG cirrhosis, HCC, status post TAVR, chronic kidney disease presenting
with generalized weakness, dizziness and shortness of breath for the past few weeks with acute onset worsening of symptoms in the past day. She does not know what triggered her symptoms. She denies any recent illnesses or change in medications.
She was admitted for similar in March and underwent right heart catheterization demonstrating no heart failure. Her current proBNP is also negative.
Repeat chest x-ray remains unchanged, does demonstrate low lung volumes overall. We are consulted for eval.
Acute on chronic hypoxemic respiratory failure
Acute on chronic SOB
Weight loss/decreased PO intake
Generalized weakness
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
Restrictive lung disease
PFT 2016 TLC 3.25L 64% (moderate restriction), DLCO 49% (moderate diffusion impairment)
FONG cirrhosis
s/p TAVR
hx of HFpEF
pulmonary fibrosis on 3L
DM
TAVR 2016, 2023
Chronic anemia, baseline Hb 7-8
Tonsillectomy
Plan
Chronic use of 4L O2 at home, had been increased to 6L on arrival
She is now back to baseline use of O2
Prior history of lung disease is noted including IPF, RLD
Suspect patient has underlying/superimposed AECHF on IPF
Deconditioning may be a factor
CXR obtained indicating fibrosis that appears overall stable/mild edema
Her overall lung volumes do appear shallow
Encouraged out of bed and incentive spirometer
She is placed on IV steroids, can transition to prednisone with slow taper
We have discussed staying on chronic low-dose prednisone as well as an outpatient
She wishes to receive her nebulizers 4 times daily scheduled
ECHO reviewed, stable function
History of TAVR
Prior LHC/RHC results reviewed, wedge 12 which is not suggestive of volume overload
Can resume home Lasix without increase
She has weight loss/decreased po intake
Generalized weakness is an issue
PT/OT evaluations
Malnutrition and FTT are suspected
Recommend palliative care consult
Discharge planning in the next 24 hours if stable
We will follow
Diagnostic Data
CXR 07/11/24- Low lung volumes with increased interstitial opacification, likely mild edema superimposed on chronic lung changes. Infectious etiology can appear similar.
CXR 03/24/24- 1. Mild interstitial reticular prominence, likely representing pulmonary fibrosis (pulmonary fibrosis is also seen on prior CT chest dated 04/12/21). Superimposed pulmonary edema should be excluded clinically.
2. Unchanged cardiomegaly.
CXR 11/28/23- Findings are unchanged from prior study and again suggest congestive heart failure
CT Chest 03/24/24- IMPRESSION:
1. No evidence of pulmonary embolism.
2. Mild CHF/pulmonary edema.
Abd MRI 03/05/24- Cirrhotic liver with evidence of portal hypertension and ascites. Within the posterior segment of the right lobe of liver, just right lateral to the IVC, there is a focal lesion which meets MR criteria for hepatocellular carcinoma,
classified as LR 5 by LI-RADS criteria. In the lateral segment of the left lobe of the liver, there is a 10 mm lesion which is classified as LR for, suspicious for hepatocellular carcinoma.
ECHO 03/25/24- Normal left ventricular systolic function. LV ejection fraction is 60-65%. Mild concentric left ventricular hypertrophy. Bioprosthetic AVR with peak/mean gradients across the aortic valve of 36/21 mmHg. Mild paravalvular aortic
regurgitation. Mild mitral stenosis.
Compared to prior study of Oct 2023, valve gradients have decreased.
PFT 02/26/17: FEV1 1.51L 56%, FVC 1.76L 51%, ratio 86. TLC 3.25L 64%, DLCO 49%
RHC+LHC 03/27/24: RA: 7
RV: 38/10
PA: 38/14
PCWP: 12
Oximetry: Ao 100% (via sat monitor), PA 72%, cardiac output 4.9, cardiac index 3.1
CONCLUSION: Normal filling pressures with mild pulmonary hypertension. The patient is euvolemic at weight 123 pounds
-----
Total time spent on this consultation __75__ includes review of history, physical exam, medications, laboratory data, personal review of imaging, extensive review of outpatient records, discussion with care team and respiratory therapy.
[2024-07-11] MEDS: NOVOLOG FLEXPEN-LOW RESISTANCE 3 UNITS SC (12:35)
[2024-07-11] MEDS: DUPHALAC/CHRONULAC 10 GRAMS PO (16:00)
[2024-07-11] MEDS: DUONEB 3 ML INH ×2 (16:05→18:18)
--- NOTE | 2024-07-11 16:11 | W.PN.HOSP.TC ---
Addendum entered and electronically signed by Suhail Dunn MD 07/21/24 15:48:
Acute heart failure has been ruled out, patient has chronic heart failure.
Original Note:
Today's Communication/Plan
-
Discharge today
Assessment / Plan
Assessment / Plan
HPI: 64-year-old female with previous history of chronic hypoxemic respiratory failure on 4 L baseline, IPF, chronic heart failure with preserved ejection fraction, FONG cirrhosis, HCC, status post TAVR, chronic kidney disease presenting with
generalized weakness, dizziness and shortness of breath for the past few weeks with acute onset worsening of symptoms in the past day. She does not know what triggered her symptoms. She denies any recent illnesses or change in medications. She
was admitted for similar in March and underwent right heart catheterization demonstrating no heart failure. Her current proBNP is also negative.
# Acute on chronic hypoxemic respiratory failure secondary to interstitial pulmonary fibrosis flare
-COVID-negative. Cardiac BNP negligible
-Chest x-ray shows low lung volumes with increased interstitial opacification, likely mild edema superimposed on chronic lung changes
-Was requiring 6 L upon discharge, now back on 4�her baseline
-Appreciate pulmonology input, much improved on IV dexamethasone
-Medically stable for discharge on a slow steroid taper, 40 mg daily daily for 4 days, 30 mg daily for 4 days, then 20 mg daily until seen by pulm in the office
#Weakness
PT recommends home care
#Hyperkalemia
Low potassium diet
K 5.2 Hold spironolactone upon discharge
Repeat BMP with PCP in 1 week, resume spironolactone as able
Chronic HFpEF
-Continue Lasix
FONG cirrhosis
-Continue Xifaxan
-Hold spironolactone
-Continue lactulose
Hepatocellular carcinoma
Aortic stenosis status post TAVR
-Continue aspirin
Chronic kidney disease stage III
Iron deficiency anemia
Essential hypertension
Orthostatic hypotension
-Continue midodrine
Type 2 diabetes
-A1C 6.1
-Started on Lantus 10 units at bedtime, NovoLog 4 units AC 3 times daily due to steroid-induced hyperglycemia -continue upon discharge
-Continue Janumet
-Insulin sliding scale
Diabetic neuropathy
Hyperlipidemia
-Continue statin
Hypothyroidism
-Continue levothyroxine
Anxiety/depression
-Continue Ativan
-Continue bupropion
DVT prophylaxis�subcu Lovenox
Full code
Physical Exam
General: No acute distress
HEENT: Normocephalic, Atraumatic, EOMI, MMM
Respiratory: Bibasilar crackles
Cardiac: Normal S1/S2, Regular Rate and Rhythm
GI: Soft, Nontender, Nondistended, Normal Bowel Sounds
Extremities: No Clubbing, Cyanosis
Neuro: Nonfocal/Grossly Intact
Psych: Calm, Cooperative
Derm: No Visible lesions
Anticipated Discharge: Today
Subjective/Interval History
-
Date of Service: July 11, 2024
Patient's dyspnea with activity has improved. Her weakness is also improved. No fever, no vomiting.
Objective Data
-
Labs:
Laboratory Results
07/11/24
06:44
WBC 3.4 L
Hgb 10.2 L
Hct 29.9 L
Plt Count 137 D
Sodium 135
Potassium 5.2 H D
Chloride 98
Carbon Dioxide 23
BUN 30 H
Creatinine 1.1 H
Glucose 270 H
Calcium 10.5 H
Total Bilirubin 0.9
AST 57 H
ALT 33
Alkaline Phosphatase 120
Vital Signs:
Vital Signs
Temp Pulse Resp BP Pulse Ox
97.6 F 87 20 120/55 97
07/11/24 12:00 07/11/24 16:09 07/11/24 16:09 07/11/24 12:00 07/11/24 16:09
I&O
07/10/24 07/11/24 07/12/24
06:59 06:59 06:59
Intake Total 480 / 480
Balance 480 / 480
--- NOTE | 2024-07-11 16:58 | CM ---
Reviewed chart, met with patient to obtain information for assessment. Patient stated that she lives with her daughter in a twin home with three steps to enter. She described herself as in need of assistance with bathing, and dressing as well as
ADLs. She has assistance through caregivers that come in 5 days a week through [employer]. Her neighbors, family and friends assist with all poultry barn manager, cooking, cleaning and laundry.
Patient uses a a walker and a cane to assist with ambulation. She has o2 that she is on continuous. She stated that she gets her medical equipment through [employer].
Patient has had VN in the past.
She has been to a SNF at [facility].
She has a prescription plan and uses, [facility] in [place] for all of her medications.
Patient has a PCP is Sally Taylor.
Plan: Case management will continue to follow and assist with discharge planning. Patient is hopeful that she can return home when medically cleared.
[2024-07-11 17:26] LABS: Glucose - Point of Care 245 mg/dl (70-99)
[2024-07-11] MEDS: CRESTOR 10 MG PO (17:48)
[2024-07-11] MEDS: LOVENOX 40 MG SC (17:49)
[2024-07-11] MEDS: NOVOLOG FLEXPEN 4 UNITS SC (17:49)
[2024-07-11] MEDS: THERAGRAN 1 TABLET PO (21:15)
[2024-07-11] MEDS: NEURONTIN 300 MG PO (21:15)
--- NOTE | 2024-07-11 21:40 | PTCARENOTE ---
Pt was anxious and requested Ativan. The order is 0.5mg PO Daily. It was last given at 00:02 07/11. The nurse practitioner confirmed Ativan could be given early. Ativan was administered at 21:31 07/11 after talking to the nurse practitioner.
[2024-07-11 21:41] LABS: Glucose - Point of Care 260 mg/dl (70-99)
[2024-07-11] MEDS: LANTUS 0.1 UNITS SC (22:36)
[2024-07-12 03:00] VITALS: BP 114/62
[2024-07-12] MEDS: SYNTHROID 112 MCG PO (05:14)
[2024-07-12] MEDS: DUONEB 3 ML INH ×2 (07:07→11:16)
[2024-07-12] MEDS: FLOVENT 44 MCG INHALER 2 PUFF INH (07:08)
[2024-07-12 07:30] VITALS: BP 110/53
[2024-07-12 07:52] LABS: Glucose - Point of Care 186 mg/dl (70-99)
[2024-07-12] MEDS: ALDACTONE 50 MG PO (08:20)
[2024-07-12] MEDS: LASIX 20 MG PO (08:20)
[2024-07-12] MEDS: ProAmatine 5 MG PO (08:20)
[2024-07-12] MEDS: DETROL LA 4 MG PO (08:20)
[2024-07-12] MEDS: ASPIR LOW (ENTERIC COATED) 81 MG PO (08:21)
[2024-07-12] MEDS: PEPCID 20 MG PO (08:21)
[2024-07-12] MEDS: DECADRON 4 MG IV (08:21)
[2024-07-12] MEDS: VITAMIN B1 100 MG PO (08:21)
[2024-07-12] MEDS: GLUCOPHAGE 1000 MG PO (08:21)
[2024-07-12] MEDS: JANUVIA 50 MG PO (08:21)
[2024-07-12] MEDS: NOVOLOG FLEXPEN 4 UNITS SC ×2 (08:22→12:44)
[2024-07-12] MEDS: NOVOLOG FLEXPEN-LOW RESISTANCE 1 UNITS SC ×2 (08:22→12:44)
[2024-07-12 08:46] LABS: Blood Urea Nitrogen 38 mg/dl (7-17); Calcium 10.7 mg/dl (8.4-10.2); Carbon Dioxide 22 mmol/L (22-30); Chloride 96 mmol/L (98-107); Estimated Creatinine Clearance 40 ml/min; Glucose 205 mg/dl (70-99); Potassium 5.2 mmol/L (3.5-5.1); Sodium 133 mmol/L (135-145); eGFR > 60.00
[2024-07-12] MEDS: WELLBUTRIN XL (24 hour extended release) 150 MG PO (09:38)
--- NOTE | 2024-07-12 10:41 | W.DCSUMMARY ---
Discharge Summary
Discharge Data
Date of Admission: 07/10/24
Date of Discharge: 07/12/24
-
Pending Results: No
Hospital Course
Discharge diagnosis:
Pulmonary fibrosis/interstitial lung disease flare
Acute on chronic hypoxic respiratory failure
Weakness
Hypokalemia
Diabetes with hyperglycemia from steroid
Chronic heart failure with preserved ejection fraction
Cirrhosis
Hepatocellular carcinoma
Aortic stenosis status post valve replacement
Stage III chronic kidney disease
Iron deficiency anemia
Orthostatic hypotension on midodrine
Essential hypertension
Consults: Pulmonology
Hospital course:
64-year-old female with a past medical history of chronic hypoxemic respiratory failure on 4 L baseline, IPF, chronic heart failure with preserved ejection fraction, FONG cirrhosis, HCC, status post TAVR, and chronic kidney disease presented with
generalized weakness, dizziness, and shortness of breath for the past few weeks. Patient was admitted for exacerbation of her pulmonary fibrosis/interstitial lung disease. Patient was seen in conjunction with pulmonology. She received IV steroids
and bronchodilators. Initially she required 6 L of oxygen, she is usually on 4. She was weaned down to 3 L of oxygen, better than her baseline of 4 L.
Patient was seen in conjunction with PT, who recommended home care.
Patient has hyperkalemia, with a potassium of 5.2. Her spironolactone was held. She has been advised to continue holding her spironolactone. She can have repeat blood work/BMP with her primary care provider in 1 week. She can resume her
spironolactone at that time if her potassium has normalized.
Patient's dyspnea with activity improved dramatically. She is medically stable and cleared by pulmonology for discharge. Pulmonology recommends discharge on prednisone 40 mg daily for 4 days, 30 mg daily for 4 days, then 20 mg daily until seen by
pulmonology in the office. She needs to follow-up with her primary care provider in 1 week, and pulmonology in the office in 2 weeks.
Disposition Home with home care
Discharge planning: Required 41 minutes
Discharge Plan
-
Patient Disposition: Home with Home Care
Discharge Diagnosis/Procedures: Interstitial pulmonary fibrosis flare, weakness, acute on chronic hypoxic respiratory failure, hyperkalemia
Condition: Fair
Diet: Diabetic, Carb Controlled
Activity: As tolerated
Driving Restrictions: As prior to admission
Blood Work: BMP with your PCP in 1 week
Activity Restrictions/Additional Instructions:
Your potassium in the hospital was borderline high at 5.2. Recommend stopping spironolactone.
Repeat blood work with your primary care provider in 1 week, and if your potassium is normal, can resume.
Please take prednisone 40 mg daily for 4 days, 30 mg daily for 4 days, and 20 mg daily until seen by your combine inspector.
Follow-up with your primary care provider in 1 week, and pulmonology in the office.
Referrals:
Romero Guillen MD [Active] - in two weeks
Sally Taylor NP [Family Provider] - in one week
Prescriptions:
New
metformin 1,000 mg Tablet
1,000 mg PO BID AT 0800,1700 Qty: 60 0RF
prednisone 10 mg tablet
10 mg PO .TAPER Qty: 100 0RF
Rx Instructions:
Take 40mg daily x4days, 30mg daily x4days,
20mg daily until seen by pulm
Continued
aspirin 81 MG tablet,delayed release (DR/EC)
81 mg PO DAILY
therapeutic multivitamin Tablet
1 tab PO HS
gabapentin 300 mg Capsule
300 mg PO HS
levothyroxine 112 mcg Tablet
112 mcg PO MOTUWETHFRSA
rosuvastatin 10 mg Tablet
10 mg PO QPM
Janumet 50-1,000 mg Tablet
1 tab PO BID@0800,1700
Arnuity Ellipta 100 mcg/actuation Blister With Device
1 inh INHALATION R DAILY
Gemtesa 75 mg Tablet
75 mg PO DAILY
albuterol sulfate 90 mcg/actuation Hfa Aerosol Inhaler
2 puff INHALATION R Q6HPRN PRN (Reason: sob)
coQ10 (ubiquinol) 100 mg Capsule
100 mg PO DAILY
midodrine 5 mg tablet
5 mg PO BID
thiamine HCl (vitamin B1) 100 mg Tablet
100 mg PO DAILY
famotidine [Pepcid] 40 mg Tablet
40 mg PO DAILY
furosemide [Lasix] 20 mg Tablet
20 mg PO DAILY
levothyroxine [Synthroid] 112 mcg Tablet
224 mcg PO MCCLAIN
bupropion HCl [Wellbutrin XL] 150 mg Tablet Extended Release 24 Hr
150 mg PO DAILY
lactulose 10 gram/15 mL Solution
10 g PO DAILY@1400
polyethylene glycol 3350 [HealthyLax] 17 gram Powder In Packet
17 g PO DAILYPRN PRN (Reason: constipation) Qty: 0 0RF
lorazepam 0.5 mg Tablet
0.5 mg PO DAILYPRN PRN (Reason: anxiety) Qty: 3 0RF
Patient Comments:
07/10/2024: last filled 04/25/24, 30 tabs for 30 days from [facility]
ipratropium-albuterol 0.5 mg-3 mg(2.5 mg base)/3 mL Solution For Nebulization
3 ml inhalation R Q4HPRN PRN (Reason: shortness of breath) Qty: 60 0RF
Changed
insulin lispro 100 unit/mL insulin pen
4 sliding scale dose SC AC Qty: 0 0RF
insulin glargine [Lantus Solostar U-100 Insulin] 100 unit/mL (3 mL) Insulin Pen
10 unit SC HS Qty: 0 0RF
Discontinued
spironolactone 50 mg Tablet
50 mg PO DAILY
Discharge Orders:
Discharge Patient (As Directed); Ordered 07/12/24
Ordered By: Suhail Dunn
Discharge Date and Time
Discharge Date/Time: 07/12/24 13:54
Print Language: PASHTO
[2024-07-12 12:00] VITALS: BP 127/58
[2024-07-12 12:28] LABS: Glucose - Point of Care 197 mg/dl (70-99)
--- NOTE | 2024-07-12 13:27 | W.PN.PUL3 ---
Today's Communication / Plan
-
Prednisone taper
Close observation in the outpatient setting
Continue oxygen therapy
Follow-up in my office in 1 month or earlier if necessary
May need to discuss with palliative care at some point
Discharge today
Sign off
Assessment
-
Patient is a 64-year-old female with previous history of chronic hypoxemic respiratory failure on 4 L baseline, IPF, chronic heart failure with preserved ejection fraction, FONG cirrhosis, HCC, status post TAVR, chronic kidney disease presenting
with generalized weakness, dizziness and shortness of breath for the past few weeks with acute onset worsening of symptoms in the past day. She does not know what triggered her symptoms. She denies any recent illnesses or change in medications.
She was admitted for similar in March and underwent right heart catheterization demonstrating no heart failure. Her current proBNP is also negative.
Repeat chest x-ray remains unchanged, does demonstrate low lung volumes overall. We are consulted for eval.
Acute on chronic hypoxemic respiratory failure
Acute on chronic SOB
Weight loss/decreased PO intake
Generalized weakness
Conditions present [employer]
Restrictive lung disease
PFT 2016 TLC 3.25L 64% (moderate restriction), DLCO 49% (moderate diffusion impairment)
FONG cirrhosis
s/p TAVR
hx of HFpEF
pulmonary fibrosis on 3L
DM
TAVR 2023
Chronic anemia, baseline Hb 7-8
Tonsillectomy
Plan
Chronic use of 4L O2 at home, had been increased to 6L on arrival
Back to her baseline 07/12/2024.
Prior history of lung disease is noted including IPF, RLD
Suspect patient has underlying/superimposed AECHF on IPF
Deconditioning may be a factor
Cannot rule out hepatopulmonary syndrome-workup is ongoing [facility]
No significant pulmonary hypertension on catheterization 03/2024.
CXR obtained indicating fibrosis that appears overall stable/mild edema
Encouraged out of bed and incentive spirometer
Transition to prednisone 40 mg X 4 days, 30 mg X 4 days and [address] Sherwood in the office.
She wishes to receive her nebulizers 4 times daily scheduled
ECHO reviewed, stable function
History of TAVR
Prior LHC/RHC results reviewed, wedge 12 which is not suggestive of volume overload
Can resume home Lasix without increase
She has weight loss/decreased po intake
Generalized weakness is an issue
PT/OT evaluations
Malnutrition and FTT are suspected
Recommend palliative care consult-this has been discussed in the outpatient multiple times. Currently as a last effort she is following at the ILD center at [facility]. Not a candidate for transplant.
Okay to discharge from my perspective
Follow-up in my office in about a month. Discussed with primary team. Very complex case and unfortunately not many options to offer at this point.
Diagnostic Data
CXR 07/11/24- Low lung volumes with increased interstitial opacification, likely mild edema superimposed on chronic lung changes. Infectious etiology can appear similar.
CXR 03/24/24- 1. Mild interstitial reticular prominence, likely representing pulmonary fibrosis (pulmonary fibrosis is also seen on prior CT chest dated 04/12/21). Superimposed pulmonary edema should be excluded clinically.
2. Unchanged cardiomegaly.
CXR 11/28/23- Findings are unchanged from prior study and again suggest congestive heart failure
CT Chest 03/24/24- IMPRESSION:
1. No evidence of pulmonary embolism.
2. Mild CHF/pulmonary edema.
Abd MRI 03/05/24- Cirrhotic liver with evidence of portal hypertension and ascites. Within the posterior segment of the right lobe of liver, just right lateral to the IVC, there is a focal lesion which meets MR criteria for hepatocellular carcinoma,
classified as LR 5 by LI-RADS criteria. In the lateral segment of the left lobe of the liver, there is a 10 mm lesion which is classified as LR for, suspicious for hepatocellular carcinoma.
ECHO 03/25/24- Normal left ventricular systolic function. LV ejection fraction is 60-65%. Mild concentric left ventricular hypertrophy. Bioprosthetic AVR with peak/mean gradients across the aortic valve of 36/21 mmHg. Mild paravalvular aortic
regurgitation. Mild mitral stenosis.
Compared to prior study of Oct 2023, valve gradients have decreased.
PFT 02/26/17: FEV1 1.51L 56%, FVC 1.76L 51%, ratio 86. TLC 3.25L 64%, DLCO 49%
RHC+LHC 03/27/24: RA: 7
RV: 38/10
PA: 38/14
PCWP: 12
Oximetry: Ao 100% (via sat monitor), PA 72%, cardiac output 4.9, cardiac index 3.1
CONCLUSION: Normal filling pressures with mild pulmonary hypertension. The patient is euvolemic at weight 123 pounds
-----
Total time spent on this consultation __51__ includes review of history, physical exam, medications, laboratory data, personal review of imaging, extensive review of outpatient records, discussion with care team and respiratory therapy.
Subjective Data
-
Date of Service:
Date of Service: July 12, 2024
Chief Complaint: Pulmonary Follow Up (Hypoxemic respiratory failure-interstitial lung disease)
Subjective:
No complaints
Feels better today
No significant hemoptysis or phlegm production
Review of Systems
Cardiopulmonary: Dyspnea (Back to base), Cough (n) and Sputum Production (n)
GI: Abdominal Pain (n)
Objective Data
Data Reviewed
Vital Signs / I&O / Oxygen:
Vital Signs
Temp Pulse Resp BP Pulse Ox
97.9 F 91 16 127/58 97
07/12/24 12:00 07/12/24 12:00 07/12/24 12:00 07/12/24 12:07/12/24 12:00
Intake and Output
07/11/24 07/12/24 07/13/24
06:59 06:59 06:59
Intake Total 1560 / 1560
Balance 1560 / 1560
SaO2 97
Nasal Cannula flow liters per 3
minute
Physical Exam
General: Comfortable
HEENT: Normocephalic
Cardiovascular: S1-S2 and Regular Rhythm
Respiratory: Clear and Non-Labored Respirations
GI: Soft and Non Distended
Neurology: Awake, Oriented and No Motor Deficits
Skin: Warm
Labs/Micro/Reports
Lab Data
07/11/24 06:44
07/12/24 07:22
Microbiology
07/10/24 15:12 Nasal Swab Influenza Types A & B (ROSALINDA) - Final
Negative for Influenza A & B, NAAT
Negative results must be combined with clinical observations
and patient history.
Nucleic Acid Amplification test (NAAT)performed on the
[employer] NOW platform.
--- NOTE | 2024-07-12 16:12 | CM ---
entered order for discharge.
Spoke with pt in room She [id number] to be dc to home Offered Vn she [id number] [facility] .
[facility] referral placed in care port.
Spoke with Ana [phone] d[address] will drive her home.
Pt has home oxygen with [employer].
PLAN Home with [facility] fax [phone]
--- NOTE | 2024-07-16 11:21 | PN.CDI ---
CDI
- -
CDI:
Physician Documentation Request
Admit Date: 07/10/24 19:28
Dear Doctor Do
Please review the following and provide your response in the progress notes.
Clinical Indicators:
The diagnosis of AECHF was documented on 07/11 Consultation report and 07/12 Progress note but is not consistently noted in subsequent documentation.
Please clarify the following:
____ Acute heart failure was present on admission and is now resolved.
____ Acute heart failure was present on admission and is still being monitored, evaluated or treated
____ Acute heart failure was ruled out
____ Acute heart failure is still a likely, suspected, probable diagnosis
____ - Other
____ - Unable to determine
Use of terms such as suspected, likely, concern for, or probable (associated with a specific diagnosis that is being evaluated, monitored, or treated as if it exists) are acceptable and can be coded in the inpatient setting, when documented at the
time of discharge.
Thank you,
Leila Peralta
[employer] In[facility]
Please use your independent medical judgment in providing your response.
== END 2024-07-12 13:54 | disposition home health service (06) | DRG 189 ==
LOC: 3 WEST ACU 19:28
PROVIDERS: Emergency Medicine; ADMITTING PHYSICIAN Hospitalist; ATTENDING PHYSICIAN Family Medicine; EMERGENCY PHYSICIAN Emergency Medicine; FAMILY PHYSICIAN Internal Medicine; OTHER PHYSICIAN Internal Medicine
DX: J96.21 Acute and chronic respiratory failure with hypoxia (principal); I50.32 Chronic diastolic (congestive) heart failure; E46 Unspecified protein-calorie malnutrition; J84.10 Pulmonary fibrosis, unspecified; K75.81 Nonalcoholic steatohepatitis (NASH); K74.60 Unspecified cirrhosis of liver; E78.00 Pure hypercholesterolemia, unspecified; K76.81 Hepatopulmonary syndrome; E03.9 Hypothyroidism, unspecified; E11.22 Type 2 diabetes mellitus with diabetic chronic kidney disease; E11.42 Type 2 diabetes mellitus with diabetic polyneuropathy; E11.65 Type 2 diabetes mellitus with hyperglycemia; N18.30 Chronic kidney disease, stage 3 unspecified; D50.9 Iron deficiency anemia, unspecified; E87.5 Hyperkalemia; F32.A Depression, unspecified; F41.9 Anxiety disorder, unspecified; I95.1 Orthostatic hypotension; R62.7 Adult failure to thrive; R53.1 Weakness; T38.0X5A Adverse effect of glucocorticoids and synthetic analogues, initial encounter; Z68.24 Body mass index [BMI] 24.0-24.9, adult; Z11.52 Encounter for screening for COVID-19; Z79.51 Long term (current) use of inhaled steroids; Z99.81 Dependence on supplemental oxygen; Z95.2 Presence of prosthetic heart valve; Z87.891 Personal history of nicotine dependence; Z85.05 Personal history of malignant neoplasm of liver; Z79.899 Other long term (current) drug therapy; Z79.890 Hormone replacement therapy; Z79.84 Long term (current) use of oral hypoglycemic drugs; Z88.0 Allergy status to penicillin; Z88.8 Allergy status to other drugs, medicaments and biological substances; Z79.4 Long term (current) use of insulin
CPT/HCPCS: 71046; 74183; 80048; 80053; 82962; 83036; 83880; 84484; 85025; 87502; 87811; 93005; 94640; 97116; 97162; 99285; A9581

== ENCOUNTER → 2024-10-03 10:39 | Outpatient (REF) | payer MEDICARE, BC, SELFPAY ==
[2024-10-03 11:54] LABS: INR 1.31; PT 16.5 Sec (11.4-14.6)
[2024-10-03 12:04] LABS: % Basophils 1.6 % (0-2); % Eosinophils 5.1 % (0-6); % Immature Granulocytes 0.6 % (0-0.5); % Lymphocytes 7.7 % (20.5-51.1); % Monocytes 19.6 % (1.7-9.3); % Neutrophils 65.4 % (42.2-75.2); Absolute Basophils 0.2 10^3/uL (0-0.2); Absolute Eosinophils 0.5 10^3/uL (0-0.7); Absolute Immature Granulocytes 0.1 10^3/uL (0-0.05); Absolute Lymphocytes 0.7 10^3/uL (1.2-3.4); Absolute Monocytes 1.9 10^3/uL (0.1-0.6); Absolute Neutrophils 6.3 10^3/uL (1.4-6.5); Hematocrit 19.9 % (37.0-47.0); Hemoglobin 6.2 g/dL (12.0-16.0); Mean Corp Hgb Conc. 31.2 g/dL (33.0-37.0); Mean Corpuscular Volume 96.1 fL (81.0-99.0); Nucleated Red Blood Cells % 0 %; Platelet Count 159 10^3/uL (130-400); Red Blood Cell Count 2.07 10^6/uL (4.20-5.40); White Blood Cell Count 9.6 10^3/uL (4.8-10.8)
[2024-10-03 12:47] LABS: ALT (SGPT) 26 U/L (0-35); AST (SGOT) 68 U/L (14-36); Albumin 2.8 g/dl (3.5-5.0); Alkaline Phosphatase 189 U/L (38-126); Blood Urea Nitrogen 26 mg/dl (7-17); Calcium 9.1 mg/dl (8.4-10.2); Carbon Dioxide 27 mmol/L (22-30); Chloride 95 mmol/L (98-107); Direct Bilirubin 0.3 mg/dl (0.0-0.4); Glucose 173 mg/dl (70-99); Iron 50 ug/dl (37-170); Potassium 4.7 mmol/L (3.5-5.1); Sodium 133 mmol/L (135-145); Total Bilirubin 0.9 mg/dl (0.2-1.3); Total Protein 6.5 g/dl (6.3-8.2); eGFR 35.57
[2024-10-03 12:57] LABS: Percent Saturation 16 % (20-50); Total Iron Binding Capacity 308 ug/dl (265-497)
[2024-10-03 14:42] LABS: Free T4 1.99 ng/dl (0.78-2.19)
[2024-10-03 15:01] LABS: Ferritin 58.2 ng/ml (11.1-264.0)
== END ==
LOC: REG 10:39
PROVIDERS: ATTENDING PHYSICIAN Internal Medicine Gastroenterology; FAMILY PHYSICIAN Internal Medicine; OTHER PHYSICIAN Internal Medicine Endocrinology, Diabetes & Metabolism; REFERRING PHYSICIAN Internal Medicine Hematology & Oncology
DX: K74.60 Unspecified cirrhosis of liver (principal); A04.8 Other specified bacterial intestinal infections; J84.10 Pulmonary fibrosis, unspecified; I35.0 Nonrheumatic aortic (valve) stenosis; E11.9 Type 2 diabetes mellitus without complications; D50.9 Iron deficiency anemia, unspecified; D47.2 Monoclonal gammopathy; E83.39 Other disorders of phosphorus metabolism
CPT/HCPCS: 36415; 80053; 82105; 82248; 82728; 83540; 83550; 84439; 84443; 85025; 85610

== ENCOUNTER 2024-10-03 17:13 | Inpatient (IN) | payer MEDICARE, BC, SELFPAY ==
[2024-10-03] VITALS (11 sets, daily range): BP systolic 82–122; BP diastolic 47–82; PULSE 76–95; BMI 25.8
--- NOTE | 2024-10-03 14:08 | ED.GENMED ---
History of Present Illness
General
Chief Complaint: Abnormal Lab Value
Source: patient
Exam Limitations: none
Time Seen by Provider: 10/03/24 13:51
Nursing documentation reviewed up to this point in time: agreed with
History of Present Illness
History of Present Illness:
Patient is a 64-year-old female with past medical history of pulmonary fibrosis, diabetes chronic heart failure with preserved EF, cirrhosis, hepatocellular carcinoma , Aortic stenosis s/p valve replacement , stage 3 kidney disease who presents to
the ER for evaluation of low hemoglobin. Patient was getting blood work done today(she is a patient of Dr. Pereira and Dr. Pressley) and reports her hemoglobin was 6.2. She has felt very fatigue. She does report her stools at times are dark and she
has noticed this over the past week. She denies any chest pain. She is on 4 L of nasal cannula oxygen normally but does report she is little more short winded than normally with exertion.
She reports that she was anemic in August and had hemoglobin of 6.8 at the time as hospice at [facility]. They did an endoscopy which was negative.
She is not on blood thinners.
Patient denies any abdominal pain. She does have history of paracentesis however not often. She reports her last paracentesis was in February.
Patient receives iron transfusions.
Patient reports that she has had some increasing abdominal swelling with some mild lower extremity swelling and GI, Dr. Rice increased her Lasix 2 weeks ago.
Past History
Past History
ED Past Medical History: GERD, HTN, Hypercholesterolemia, IDDM, Valvular disease, Hypothyroidism and Other (Pulmonary fibrosis, FONG , Varices of the esophagus, Hiatal hernia)
ED Past Surgical History: Cardiac (TAVR. )
Social History
Tobacco: Non-smoker
Alcohol: Occasional
Drug: None
Personal:
Living: alone
Review of Systems
Review of Systems
Allergies reviewed?: Yes
All Other Systems: ROS reviewed and negative except as documented in HPI and ROS
Constitutional: Reports fatigue; Denies fever or chills
EENT: Reports no symptoms
Respiratory: Reports trouble breathing (increased SOB for past one week )
Cardiac: Reports no symptoms
ABD/GI: Reports other (dark stools ); Denies abdominal pain, nausea, vomiting or diarrhea
: Reports no symptoms
Musculoskeletal: Reports no symptoms
Skin: Reports no symptoms
Psychiatric: Reports no symptoms
Phy Exam
General Physical Exam
General Presentation: no apparent distress
General age: appears stated age
General Skin: warm and dry
General Habitus: normal
General Mental: alert
General Hydration: appears well hydrated
Gastrointestinal Exam
Gastrointestinal Exam: normal bowel sounds, non tender, soft and other (dark stool heme positive )
Neurological Exam
Neurological Exam: alert and oriented x3
Musculoskeletal Exam
Musculoskeletal Exam: full ROM
Skin Exam
Skin Exam: normal color and warm/dry
Psychiatric Exam
Psychiatric Exam: normal mood/affect
Course
Orders/Labs/Results
Orders:
Orders
10/03/24 14:33
* Blood Bank Products Urgent
's Orders: humbertoichner/Jadonladenhaufen
Blood Bank Products: *Packed RBC Leuko(PRBC's)
Quantity: 1
Transfuse Today: Yes
Reason: Anemia
10/03/24 14:34
IV Insert/Care/Rem.- Treatment PRN
10/03/24 14:42
Type+Screen Urgent
BBK Wristband Number:
10/03/24 Dinner
Clear Liquid
10/03/24 15:14
Chest [CR Chest - 2 Views ] Urgent
Comment:
Reason For Exam: sob
10/03/24 15:40
Electrocardiogram (*1) Stat
Reason for Study: Other
Other Reason for Exam: chest pain
Cardiac Monitoring- Treatment ONCE
EKG- Treatment ONCE
10/03/24 16:50
Admit/Transfer Patient As Directed
Co-Sign Provider:
Level of Care: Inpatient admission
Assign to:: Telemetry
Physician / Group: Fred Dobson
Diagnosis: GI bleed
Reason for Telemetry: Other
Other Reason for Telemetry: GI Bleed
Date to Stop Telemetry: 10/05/24
Time to Stop Telemetry: 11:00
Reason for Hospitalization: GI bleed
Expected length of stay greater than two midnights?: Yes
ELOS- Estimated Length of Stay in days: 3
I certify the patient meets the requirements for IP care: Yes
PRN Pain Medication Management As Directed
May give lesser potent ordered pain med per pt: Yes
preference::
Protocol:: Medication orders for pain may be administered in a
manner that supports deferring to patient preference
when the pt is:
- Requesting an ordered lesser potent pain medication.
Least to most potent pain medications are defined
as: acetaminophen < NSAID < tramadol < opioids
(morphine, oxycodone, hydromorphone).
- Requesting a lesser dose of the same medication IF
ORDERED.
- Requesting a less intrusive route of administration
if both routes are prescribed by the provider (PO <
IV).
10/03/24 16:53
Code Status As Directed
Resuscitation Status: Full Code
10/03/24 17:01
US Abdomen Limited Routine
Reason For Exam: ascites
10/03/24 17:35
Albuterol [ProAIR HFA INHALER] 2 puff INH R Q6HPRN PRN
Dextrose 50%-Water [Dextrose 50% Syringe] 12.5 grams IV [id number] PRN
Glucagon [GlucaGen] 1 mg IM PRN PRN
Ipratropium/Albuterol Sulfate [Duoneb] 3 ml INH R Q4HPRN PRN
Levothyroxine [Synthroid] 112 mcg PO MOTUWETHFRSA
Lorazepam [Ativan] 0.5 mg PO DAILYPRN PRN
Pantoprazole 80 mg/100 ml Nss [Protonix] 80 mg in 100 ml IV Q10H
10/03/24 17:35
GASTROINTESTINAL CONSULT Routine
Consulting Provider: Julieta Dunn
Was physician already notified: Yes
IRAD CONSULT Routine
Consulting Provider: Steven Trevino
Was physician already notified: Yes
Reason for Consult/Procedure: Eval for ascites/paracentesis
Acknowledgement that appropriate orders are entered: N/A
Activity As Directed
Activity Level: Ambulate
Bedside Glucose Monitoring As Directed
Frequency: AC&HS
Additional Instructions:: Change to q6h if pt on TPN, tube feeding or not eating
INT (Intravenous Needle Therapy) As Directed
Comment: Place 2 IV catheters of the largest bore possible until stable
Orthostatic Vital Signs As Directed
Orthostatic VS Frequency: Now
Comment: then every four hours for twenty-four hours
Pneumatic Compression Sleeves As Directed
Type: Knee high
Vital Signs As Directed
Frequency: Per unit guidelines
DX Deep Vein Thrombosis Video Routine
10/03/24 18:00
Rosuvastatin Calcium [Crestor] 10 mg PO QPM
10/03/24 20:00
Midodrine [ProAmatine] 5 mg PO BID
Rifaximin [Xifaxan] 550 mg PO BID
lactulose 10 grams PO BID
10/03/24 22:00
H&H Q6H
Gabapentin [Neurontin] 300 mg PO HS
Multivitamin [Theragran] 1 tablet PO HS
insulin glargine [Lantus Solostar U-100 Insulin] 25 unit SC HS
10/04/24 06:00
Basic Metabolic Panel IN AM
Complete Blood Count/No Diff IN AM
Glycohemoglobin (HgbA1c) IN AM
10/04/24 07:30
Insulin Aspart Corrective Low [Novolog Flexpen-Low Resistance] See Protocol SC AC
10/04/24 08:00
Aspirin Low Dose EC [Aspir Low (Enteric Coated)] 81 mg PO DAILY
Bupropion(24Hr)Extended Releas [WELLBUTRIN XL (24 hour extended release)] 150 mg PO DAILY
Furosemide [Lasix] 40 mg PO DAILY
Spironolactone [Aldactone] 50 mg PO DAILY
Thiamine HCl [Vitamin B1] 100 mg PO DAILY
fluticasone furoate [Arnuity Ellipta] 1 inh INH R DAILY
mirabegron [Myrbetriq] 50 mg PO DAILY
10/05/24 06:00
Basic Metabolic Panel IN AM
Complete Blood Count/No Diff IN AM
10/05/24 08:00
Levothyroxine [Synthroid] 224 mcg PO MCCLAIN
10/05/24 11:00
DC Protocol for Telemetry ONCE
10/06/24 06:00
Basic Metabolic Panel IN AM
Complete Blood Count/No Diff IN AM
Abnormal Lab Results
10/03/24
14:42
Crossmatch IS Only See Detail
Vital Signs
Initial and Last Documented VS:
Initial Vital Signs
Temp Pulse Resp BP Pulse Ox
97.8 F 89 18 108/54 96
10/03/24 13:05 10/03/24 13:05 10/03/24 13:05 10/03/24 13:05 10/03/24 13:05
Last Documented Vital Signs
Temp Pulse Resp BP Pulse Ox
97 F 83 22 104/52 100
10/03/24 17:45 10/03/24 17:45 10/03/24 17:45 10/03/24 17:45 10/03/24 17:45
MDM/Problems Addressed
Differential Diagnosis Includes:
Not limited to anemia, GI bleed
MDM/Problems Addressed:
As documented patient is a 64-year-old history with hepatocellular carcinoma and other significant above history as documented presents with anemia. She had blood work done this morning, sent to the ER for anemia. She has not anticoagulated she
does receive iron transfusions and complains of dark stools for the past 1 week. Patient is normally on 4 L nasal cannula oxygen but is more short winded than normal with exertion. She presents awake alert she is pale she does have a history of
chronic interstitial fibrosis and she has crackles throughout. She denies any shortness of breath presently.
Hemoglobin from this morning is 6.2 with hematocrit of 19.9. As documented she was transfused for low hemoglobin of 6.8 and [facility] in August. Her last hemoglobin from here was July 11 and was 10.2. Her platelets are normal. Her BUN is
elevated at 26 her creatinine is elevated at 1.6 which is slightly more elevated than normal.
Abdomen appears with ascites however she is nontender denies any fevers. Rectal exam shows dark stools heme positive. Will admit for anemia fatigue dark stools. Will transfuse 2 units of packed red blood cells here in the ER.
*Radiology
Radiology exam reviewed: radiology read reviewed
*Pulse Oximetry
Patient hypoxic: no
*EKG
Heart Rate: 90
Rate: normal
Rhythm: sinus
Ischemia: no ischemia
*Critical Care Note
Total Time (30-74mins, 75-104mins- exclusive of procedures): Not Applicable
ED Attending Note
-
Portions of this chart may have been created with voice recognition software.� Occasional wrong word or��sound alike� substitutions may have occurred due to the inherent limitations of voice recognition software.
Discharge Plan
Departure
Patient Disposition: Admit
Date of Disposition: 10/03/24
Time of Disposition: 15:17
Admit to: Med/Surg
Admit to doctor: hospitalist
Presentation/result/management discussed w/ accepting MD/DO: Hospitalist
Patient with high blood pressure during this ER visit?: No
Condition: Fair
Covid-19: Not Applicable
Discharge Problem:
Anemia, Heme positive stool, Breathlessness on exertion
Interventions
Interventions:
*Risk Screen - Suicide Last Done: 10/03/24 13:05
*General Assessment Last Done: 10/03/24 13:08
*Neglect/Abuse Screening Last Done: 10/03/24 13:05
ED- Fall Risk Assessment Last Done: 10/03/24 13:46
*ED COVID-19 Vaccine History Last Done: 10/03/24 13:08
--- NOTE | 2024-10-03 16:07 | HPS.HSE ---
Family Physician
-
Family Physician: Sally Taylor
Chief Complaint
-
Abnormal lab value
History of Present Illness
Patient is a 64-year-old female with past medical history significant for pulmonary fibrosis, hepatocellular carcinoma, HTN, HLD, type 2 diabetes, iron deficiency and HFpEF. Patient presented to [place] ED for evaluation of low hemoglobin
discovered on out patient labs. Patient stated she completed out patient labs and Dr. Pereira office called and request she report to ED as hgb 6.2. Patient states she has felt increased fatigue and shortness of breath with exertion recently. She
utilizes home O2 at 4Liters and has not needed to titrate recently. She states that stools have been intermittently dark for greater than a month, and today when she had bowel movement it was just brown. She denies any fever, chills, cough, chest
pain, diarrhea, constipation or urinary symptoms.
Medical History
Past Medical History
Past Medical History: Reports Other
Additional Past Medical History:
pulmonary fibrosis
hepatocellular carcinoma
FONG
HTN
HLD
type 2 diabetes
iron deficiency
HFpEF
Past Surgical History: Reports Other
Additional Past Surgical History:
TAVR
Social History
Tobacco: Former Smoker
Alcohol: None
Drug: None
Personal: Single
Living: With Family
Employment: Retired
Family History
Family History: Not pertinent
Allergies / Home Medications
Allergies reflects when Allergies were last updated in [employer].
Home Medications with original date entered in [employer]
Allergy/Medication List:
Allergies
Allergy/AdvReac Type Severity Reaction Status Date / Time
nitrofurantoin Allergy Rash Verified 07/10/24 15:02
[From Macrobid]
Penicillins Allergy Rash Verified 07/10/24 15:02
Sulfa (Sulfonamide Allergy Rash Verified 08/29/24 15:02
Antibiotics)
Home Medications
aspirin 81 mg tablet,delayed release 81 mg PO DAILY Blood Clot Prevention/Tx 08/11/16
fluticasone furoate 100 mcg/actuation blister powder for inhalation (Arnuity Ellipta) 1 inh inhalation R DAILY Lung/Breathing Issues 10/30/23
gabapentin 300 mg capsule 300 mg PO HS Neurological Condition 10/30/23
levothyroxine 112 mcg tablet 112 mcg PO MOTUWETHFRSA Thyroid 10/30/23
rosuvastatin 10 mg tablet 10 mg PO QPM High Cholesterol 10/30/23
therapeutic multivitamin 1 tab PO HS Supplement 10/30/23
albuterol sulfate 90 mcg/actuation aerosol inhaler 2 puff inhalation R Q6HPRN PRN sob 11/28/23
coQ10 (ubiquinol) 100 mg capsule 100 mg PO DAILY Supplement 11/28/23
midodrine 5 mg tablet 5 mg PO BID Blood Pressure 01/30/24
thiamine HCl (vitamin B1) 100 mg tablet 100 mg PO DAILY Supplement 01/30/24
bupropion HCl 150 mg 24 hr tablet, extended release (Wellbutrin XL) 150 mg PO DAILY depression/anxiety 03/24/24
famotidine 40 mg tablet (Pepcid) 40 mg PO HS Gastrointestinal Issue 03/24/24
furosemide 20 mg tablet (Lasix) 40 mg PO DAILY Fluid Retention/Swelling 03/24/24
lactulose 10 gram/15 mL oral solution 10 g PO BID liver disease/FONG 03/24/24
levothyroxine 112 mcg tablet (Synthroid) 224 mcg PO MCCLAIN Thyroid 03/24/24
lorazepam 0.5 mg tablet 0.5 mg PO DAILYPRN PRN anxiety #3 tabs 03/27/24
polyethylene glycol 3350 17 gram oral powder packet (HealthyLax) 17 g PO DAILYPRN PRN constipation #0 ea 03/27/24
ipratropium 0.5 mg-albuterol 3 mg (2.5 mg base)/3 mL nebulization soln 3 ml inhalation R Q4HPRN PRN shortness of breath #60 ea 07/12/24
bismuth subsalicylate 262 mg chewable tablet (Pepto-Bismol) 2 tab PO TIDPRN PRN GERD 10/03/24
insulin glargine 100 unit/mL (3 mL) subcutaneous pen (Lantus Solostar U-100 Insulin) 25 unit SC HS Diabetes 10/03/24
insulin lispro 100 unit/mL subcutaneous pen 12 sliding scale dose SC AC Diabetes 10/03/24
metformin 1,000 mg tablet 1,000 mg PO BID AT 0800,1700 Diabetes 10/03/24
mirabegron 50 mg tablet,extended release 24 hr (Myrbetriq) 50 mg PO DAILY Urinary Issue 10/03/24
pantoprazole 40 mg tablet,delayed release (Protonix) 40 mg PO DAILY Gastrointestinal Issue 10/03/24
rifaximin 550 mg tablet (Xifaxan) 550 mg PO BID liver disease 10/03/24
spironolactone 50 mg tablet 50 mg PO DAILY BP/liver disease 10/03/24
Review of Systems
-
History Source: Patient
Constitutional: Reports Fatigue and Chills
EENT: Reports No Symptoms
Respiratory: Reports Trouble Breathing (shortness of breath with exertion)
Cardiac: Reports No Symptoms
Abdomen/GI: Reports Black Stools (intermittent dark stools for >1 month)
: Reports No Symptoms
Musculoskeletal: Reports No Symptoms
Skin: Reports No Symptoms
Neurological: Reports No Symptoms
Endocrine: Reports No Symptoms
Hematologic/Lymphatic: Reports No Symptoms
Psych: Reports No Symptoms
Physical Exam
Vital Signs
Vital Signs
Temp Pulse Resp BP Pulse Ox
97.8 F 89 18 108/54 96
10/03/24 13:05 10/03/24 13:05 10/03/24 13:05 10/03/24 13:05 10/03/24 13:05
Physical Exam
General: Well Developed, Well Nourished, No Apparent Distress and Conversant
HEENT: NormoCephalic, Moist mucous membranes, Atraumatic, PERRLA, Lennon Conjunctivae, Nose Appears Normal and Ears Appear Normal
Respiratory: Clear, Crackles and Decreased Breath Sounds
Cardiac: S1/S2 and Regular Rhythm; No Murmur, Rub or Gallop
Breast: Deferred by me
GI: Soft, Non Tender, Normal Bowel Sounds and Distended; No Organomegaly
Rectal: Hem Positive
Genito-urinary: Deferred by me
Musculoskeletal: No Clubbing, No Cyanosis and No Edema
Skin: No Rash
Neuro: Awake, Alert, AO x 3 and Nonfocal/grossly intact
Hematologic/Lymphatic: No Lymphadenopathy
Psych: Calm and Intact Judgment/Insight
Data Reviewed
-
Medical Tests (Nuc Med, Echo, EKG etc): Report Reviewed by me (EKG: NORMAL SINUS RHYTHM MINIMAL VOLTAGE CRITERIA FOR LVH, MAY BE NORMAL VARIANT ( R in aVL ) CANNOT RULE OUT ANTERIOR INFARCT , AGE UNDETERMINED)
Lab Data: Labs Reviewed by me (Hgb 6.2/Hct 19.9, BUN 26, Creat 1.6, TSH 15.50)
Impression/Plan
-
IMPRESSION/PLAN:
#GI Bleed
#iron deficiency
#Anemia
- Hgb 6.2/Hct 19.9
- Stool heme positive
- Consult GI
- 1 unit PRBCs and trend H/H
- IV Protonix
- Clear diet
#hepatocellular carcinoma
#FONG
- abdominal distension present
- history ascites with paracentesis, last one 02/2024
- continue Xifaxan, spironolactone, lactulose
- Abdominal US
- Consult IR
#pulmonary fibrosis
- continue home O2 4 liters
- continue albuterol HFA PRN, Ellipta
#Aortic stenosis w/ TAVR
- continue aspirin
#HTN
- continue Lasix, spironolactone
#HLD
- continue rosuvastatin
#type 2 diabetes
- A1C 6.1
- Accuchecks AC & HS
- Continue Lantus
- SSI
#Depression/Anxiety
- continue Wellbutrin and Ativan
Full Code
DVT Px: SCDs
--- NOTE | 2024-10-03 16:29 | W.PN.UPDATE ---
Update Note
Progress Note Update
This note serves as an addendum to the H&P by forger helper Eileen PUGH
HPI
64F PMHX chronic hypoxemic RF on 4 L NC O2, IPF, chronicHFpEF , FONG cirrhosis, HCC, s/p t TAVR, CKD3 seen at ER for outpatient low Hgb.
- Outpatient labs by GI- Dr. Pereira and Dr. Pressley reports her hemoglobin was 6.2.
- felt very fatigue.
- report her stools at times are dark nad has noticed this over the past week.
- reports that she was anemic in August and had hemoglobin of 6.8 at the time as hospice at [place].
upper EGD at [facility] was negative.
- Not on blood thinners.
- report she is little more short winded than normally with exertion.
- Chronically on 4 L NC O2 of IPL
- HX abdominal paracentesis however not often.
- reports that she has had some increasing abdominal swelling with some mild lower extremity swelling and GI, Dr. Rice increased her Lasix 2 weeks ago.
ROS:
denies CP
denies any abdominal pain. She reports her last paracentesis was in February.
Patient receives iron transfusions.
PHX: as above
Reviewed VS:
PE
General: No acute distress
HEENT: Normocephalic, Atraumatic, EOMI, MMM
Respiratory: Bibasilar crackles
Cardiac: Normal S1/S2, Regular Rate and Rhythm
GI: Soft, Nontender, distended abdomen , Normal Bowel Sounds
Extremities: No Clubbing, Cyanosis
Neuro: Nonfocal/Grossly Intact
Psych: Calm, Cooperative
Derm: No Visible lesions
Data
Last hospitalist admission:
Date of Admission: 07/10/24 - Date of Discharge: 07/12/24
Discharge diagnosis:
Pulmonary fibrosis/interstitial lung disease flare
Acute on chronic hypoxic respiratory failure
Weakness
Hypokalemia
Diabetes with hyperglycemia from steroid
Chronic heart failure with preserved ejection fraction
Cirrhosis
Hepatocellular carcinoma
Aortic stenosis status post valve replacement
Stage III chronic kidney disease
Iron deficiency anemia
Orthostatic hypotension on midodrine
Essential hypertension
ASSESSMENT & PLAN
Pending Rx reconciliation
Severe anemia
Acute on chr anemia
Acute elemnt is due to HoB POS darkstool GIB
HX Iron deficiency anemia
HX esophageal varix
- Recent EGD at [facility] report NEG for source of bleeding
- Blood consented
- agree with 1 unit PRBCs Tx instead of 2 PRBCs
- Clear diet
- PPI gtt
- Trend H & H
- GI consult
FONG cirrhosis
HX Ascites - last paracentesis in February
- increasing abdominal swelling with some mild lower extremity
- Continue Xifaxan
- Continue spironolactone
- Continue lactulose
- US Abdomen to eval ascites
- IR consult for evaluation of abdominal paracentesis
Hepatocellular carcinoma
Chronic HFpEF
- cont Lasix
Chronic kidney disease stage III
Aortic stenosis status post TAVR
-Continue aspirin
Essential hypertension
Orthostatic hypotension
-Continue midodrine
Type 2 diabetes
-A1C 6.1
-Continue Janumet
-Insulin sliding scale
Diabetic neuropathy
Hyperlipidemia
-Continue statin
Hypothyroidism
-Continue levothyroxine
Anxiety/depression
-Continue Ativan
-Continue bupropion
DVT Px: SCD
Code: Full
IP TLM
--- NOTE | 2024-10-03 17:14 | EDRN ---
White card sent for first unit PRBC
--- NOTE | 2024-10-03 17:36 | EDRN ---
PRBC started infusing in R ACF #20g and stopped. IV site was checked and working well prior to sending for PRBC. IV site noted to be positional. With pt arm completely straight, blood infuses well. Concerned pt will not keep her arm straight for
entire infusion so second IV site obtained R forearm #20g and switched PRBC to infuse through forearm site. ACF site flushed and clamped.
--- NOTE | 2024-10-03 17:51 | EDRN ---
Pt's temp was taken axillary for 15 minute VS because she was eating ice. Rosy Garcia RN transported pt upstairs to her room.
[2024-10-03] MEDS: ProAmatine 5 MG PO (18:36)
[2024-10-03] MEDS: CRESTOR 10 MG PO (18:36)
[2024-10-03 19:07] LABS: Glucose - Point of Care 211 mg/dl (70-99)
[2024-10-03] MEDS: DUPHALAC/CHRONULAC 10 GRAMS PO (19:45)
[2024-10-03] MEDS: XIFAXAN 550 MG PO (19:46)
[2024-10-03] MEDS: PROTONIX IV 40 MG IV (19:46)
[2024-10-03] MEDS: NSS (PRESERVATIVE FREE) 10 ML IV (19:46)
[2024-10-03 21:29] LABS: Glucose - Point of Care 280 mg/dl (70-99)
[2024-10-03] MEDS: LANTUS 0.25 UNITS SC (21:31)
[2024-10-03] MEDS: NEURONTIN 300 MG PO (21:31)
[2024-10-03] MEDS: THERAGRAN 1 TABLET PO (21:31)
[2024-10-03 22:11] LABS: Hematocrit 21.5 % (37.0-47.0); Hemoglobin 6.9 g/dL (12.0-16.0)
[2024-10-04 02:48] VITALS: BP 105/55
[2024-10-04] MEDS: SYNTHROID 112 MCG PO (05:28)
[2024-10-04 06:00] VITALS: BMI 25.8
[2024-10-04 07:00] VITALS: BP 101/45; BP 103/45; BP 109/54; PULSE 85; PULSE 89; PULSE 92
[2024-10-04 07:21] LABS: Glucose - Point of Care 133 mg/dl (70-99)
[2024-10-04] MEDS: NOVOLOG FLEXPEN-LOW RESISTANCE SC (07:26)
[2024-10-04 07:30] LABS: Hematocrit 24.1 % (37.0-47.0); Hemoglobin 7.8 g/dL (12.0-16.0); Mean Corp Hgb Conc. 32.4 g/dL (33.0-37.0); Mean Corpuscular Hgb 29.5 pg (27.0-31.0); Mean Corpuscular Volume 91.3 fL (81.0-99.0); Mean Platelet Volume 10.9 fL (7.4-10.4); Platelet Count 129 10^3/uL (130-400); Red Blood Cell Count 2.64 10^6/uL (4.20-5.40); Red Cell Dist. Width 19.3 % (11.5-14.5); White Blood Cell Count 7.4 10^3/uL (4.8-10.8)
[2024-10-04 08:06] LABS: Blood Urea Nitrogen 23 mg/dl (7-17); Calcium 8.8 mg/dl (8.4-10.2); Carbon Dioxide 30 mmol/L (22-30); Chloride 97 mmol/L (98-107); Estimated Creatinine Clearance 28 ml/min; Glucose 135 mg/dl (70-99); Potassium 4.5 mmol/L (3.5-5.1); Sodium 133 mmol/L (135-145); eGFR 33.07
[2024-10-04] MEDS: ProAmatine 5 MG PO ×2 (09:00→16:48)
[2024-10-04] MEDS: DETROL LA 4 MG PO (09:00)
[2024-10-04] MEDS: DUPHALAC/CHRONULAC 10 GRAMS PO ×2 (09:00→20:36)
[2024-10-04] MEDS: VITAMIN B1 100 MG PO (09:00)
[2024-10-04] MEDS: ASPIR LOW (ENTERIC COATED) 81 MG PO (09:00)
[2024-10-04] MEDS: XIFAXAN 550 MG PO ×2 (09:00→20:35)
[2024-10-04] MEDS: WELLBUTRIN XL (24 hour extended release) 150 MG PO (09:00)
[2024-10-04] MEDS: LASIX 40 MG PO (09:03)
[2024-10-04] MEDS: PROTONIX IV 40 MG IV ×2 (09:04→20:36)
[2024-10-04] MEDS: NSS (PRESERVATIVE FREE) 10 ML IV ×2 (09:04→20:36)
[2024-10-04] MEDS: ALDACTONE 50 MG PO (09:05)
--- NOTE | 2024-10-04 10:05 | CON.GI ---
Addendum entered and electronically signed by Julieta Vicente Do, MD 10/04/24 15:34:
I saw and examined the patient.
The SECONDARY MARKET MANAGER's note was reviewed and I agree with the note.
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 She was seen by Dr Rice earlier this month and by Dr Pressley maxillofacial pathology 10/03 in office. When
labs showed anemia of Hbg 6.5 down from baseline of 9 she was advised to come to ER. She has intermittently chronic dark stools. She is not on oral iron. She does follow with Dr Diggs for iron def anemia thought related to AVMs and portal
HTN gastropathy. She has not received IV iron in some time. She did get 2u PRBC one month ago when she was admitted at [facility]. At that time she had EGD 09/23 which showed post banding scarring and PHG with HPylori gastritis. She also
has increased abd swelling. Vitals stable. Exam spider angiomas over chest, 4L NC on nose, fluid wave, jaundice. Labs reviewed
Impression
- Acute on chronic anemia
Ddx includes PHG or AVMs. Less likely would be variceal bleeding
- Decompensated MASH cirrhosis
MELD 3.0 = 20 (10/04)
Not deemed transplant candidate given AVR and ILD
- H/o variceal bleeding
- Ascites
- STEPHEN
- HCC s/p TARE 05/2023
- AVMs
- H/o HPylori gastritis
- REJI
- ILD on 4L NC
- s/p TAVR 2016 with redo 12/2023
- DM
- GERD
- HTN
- HL
- Hypothyroidism
- Anxiety
Recommendations
- C/w PPI IV BID
- C/w octreotide and abx
- CLD
- Paracentesis today with fluid studies
- Hold diuretics given STEPHEN
- NPO at OR for EGD tomorrow. She is high risk for low risk procedure
Will follow with you.
Addendum entered and electronically signed by SHARA Chau 10/04/24 11:00:
Will change Abx to Cipro given PCN allergy
Original Note:
Consultation
-
Date/Time Consultation Requested: 10/03/24 1735
Date/Time Consultation Performed: 10/04/24 1005
Requesting Provider: SHARA Smith
Performing Provider: Dr. Dunn/SHARA Cortez
Reason for Consultation: anemia
Medical History
Chief Complaint / HPI
Chief Complaint: red/dark stools
History of Present Illness:
64 yo with hx MASH cirrhosis, ascites, HE and HCC status post TARE at [facility] 05/[address] Pressley, esophageal varices, GAVE, rectal varices, iron deficiency anemia secondary to small bowel AVMs, pulm fibrosis on chronic supplemental O2 at 4
L nasal cannula, with prior TAVR 2017 with redo at [facility] 12/2023), DM, GERD, HTN, hyperlipidemia, hypothyroidism, HH and anxiety with recent hospitalization at [facility] in at the end of August discharged on September 13 for shortness of
breath. She was found to have a hemoglobin of 6.5. She was also hypotensive and found to have sepsis related to UTI. She was transfused 2 units of packed red blood cells. She also had an endoscopy at [place] at that time that showed normal
duodenum, erosive gastritis, friable but no active bleeding. Biopsies taken positive H. pylori with treatment (finished treatment of tetracycline, bismuth, Flagyl and PPI on 09/23/2024). Portal hypertensive gastropathy in the stomach. No varices
scarring from prior rubber band ligation noted. The patient was seen afterwards by Dr. Candace Mccarthy oh but had noticed increased lower extremity swelling without weight increase. Her labs were reviewed and she had her Lasix increased from 20 mg to 40
mg daily and continuation of her Aldactone 50 mg daily. The patient takes lactulose daily and has noticed darker stools over the past 3 weeks (note she was also on Pepto-Bismol at that time) she did have continued fatigue, some increased dyspnea on
exertion and routine lab work showed that she had a hemoglobin 6.2 as an outpatient. She had seen Dr. Pressley yesterday as an outpatient in the [place] office. She was asked to come to the emergency room for further evaluation. Her hemoglobin was
6.2 in the ER. She had dark OB positive stools on rectal exam by the ER. The patient does endorse that she has some slight increase in her abdominal distention. Her last paracentesis was in February.She did receive 2 units of packed red blood cells
with her hemoglobin increasing to 7.8. She states she did have a bowel movement this morning that was brown. She is currently tolerating a clear liquid diet. She denies any fevers, chills, nausea, vomiting, hematochezia, dysphagia or odynophagia.
No early satiety or unintentional weight loss. She denies any abdominal pain. She does have lower extremity edema and has noticed some increase in abdominal girth over the past day or 2. She has no confusion or asterixis. I did compare her
weight from admission weight to her last visit on 09/25/2024. Currently she weighs 149 pounds here. As an outpatient on 09/25 she weighed 147 pounds.
Past Medical History
Past Medical History: GERD, HTN, Hypercholesterolemia, Hypothyroidism, Psychiatric (Anxiety) and Other (MASH(FONG) cirrhosis, EV with prior banding, hiatal hernia)
Past Surgical History: Cardiac (TAVR 2017), Tonsilectomy and Other (vein removal)
Social History
Tobacco: Non-Smoker
Alcohol: Occasional (rare)
Drug: None
Living: With Family
Employment: Retired
Family History
Family History: Other (no family hx liver issues )
Allergies / Home Medications
Allergy/AdvReac Type Severity Reaction Status Date / Time
nitrofurantoin Allergy Rash Verified 07/10/24 15:02
[From Macrobid]
Penicillins Allergy Rash Verified 07/10/24 15:02
Sulfa (Sulfonamide Allergy Rash Verified 07/10/24 15:02
Antibiotics)
�Medication �Instructions �Recorded
aspirin 81 mg tablet,delayed 81 mg PO DAILY Blood Clot 08/11/16
release Prevention/Tx
fluticasone furoate 100 1 inh inhalation R DAILY 10/30/23
mcg/actuation blister powder for Lung/Breathing Issues
inhalation (Arnuity Ellipta)
gabapentin 300 mg capsule 300 mg PO HS Neurological Condition 10/30/23
levothyroxine 112 mcg tablet 112 mcg PO MOTUWETHFRSA Thyroid 10/30/23
rosuvastatin 10 mg tablet 10 mg PO QPM High Cholesterol 10/30/23
therapeutic multivitamin 1 tab PO HS Supplement 10/30/23
albuterol sulfate 90 mcg/actuation 2 puff inhalation R Q6HPRN PRN sob 11/28/23
aerosol inhaler
coQ10 (ubiquinol) 100 mg capsule 100 mg PO DAILY Supplement 11/28/23
midodrine 5 mg tablet 5 mg PO BID Blood Pressure 01/30/24
thiamine HCl (vitamin B1) 100 mg 100 mg PO DAILY Supplement 01/30/24
tablet
bupropion HCl 150 mg 24 hr tablet, 150 mg PO DAILY depression/anxiety 03/24/24
extended release (Wellbutrin XL)
famotidine 40 mg tablet (Pepcid) 40 mg PO HS Gastrointestinal Issue 03/24/24
furosemide 20 mg tablet (Lasix) 40 mg PO DAILY Fluid 03/24/24
Retention/Swelling
lactulose 10 gram/15 mL oral 10 g PO BID liver disease/FONG 03/24/24
solution
levothyroxine 112 mcg tablet 224 mcg PO MCCLAIN Thyroid 03/24/24
(Synthroid)
lorazepam 0.5 mg tablet 0.5 mg PO DAILYPRN PRN anxiety #3 03/27/24
tabs
polyethylene glycol 3350 17 gram 17 g PO DAILYPRN PRN constipation 03/27/24
oral powder packet (HealthyLax) #0 ea
ipratropium 0.5 mg-albuterol 3 mg 3 ml inhalation R Q4HPRN PRN 07/12/24
(2.5 mg base)/3 mL nebulization shortness of breath #60 ea
soln
bismuth subsalicylate 262 mg 2 tab PO TIDPRN PRN GERD 10/03/24
chewable tablet (Pepto-Bismol)
insulin glargine 100 unit/mL (3 25 unit SC HS Diabetes 10/03/24
mL) subcutaneous pen (Lantus
Solostar U-100 Insulin)
insulin lispro 100 unit/mL 12 sliding scale dose SC AC 10/03/24
subcutaneous pen Diabetes
metformin 1,000 mg tablet 1,000 mg PO BID AT 0800,1700 10/03/24
Diabetes
mirabegron 50 mg tablet,extended 50 mg PO DAILY Urinary Issue 10/03/24
release 24 hr (Myrbetriq)
pantoprazole 40 mg tablet,delayed 40 mg PO DAILY Gastrointestinal 10/03/24
release (Protonix) Issue
rifaximin 550 mg tablet (Xifaxan) 550 mg PO BID liver disease 10/03/24
spironolactone 50 mg tablet 50 mg PO DAILY BP/liver disease 10/03/24
Review of Systems
-
All other systems: A 12 pt ROS was Negative except as stated above in HPI
Vital Signs
Temp Pulse Resp BP Pulse Ox
98.3 F 85 19 101/45 94
10/04/24 07:00 10/04/24 07:00 10/04/24 07:00 10/04/24 07:00 10/04/24 07:00
Physical Exam
Exam
General: Other (Appears older than stated age, mild dyspnea on supplemental oxygen)
HEENT: Anicteric
Respiratory: Clear (Decreased breath sound bilaterally)
Cardiac: Regular Rhythm
GI: Soft, Non Tender, Non Distended and Distended (Mildly distended)
Musculoskeletal: Edema (+1 edema lower extremity bilaterally)
Skin: Warm and Dry
Neuro: AO x 3 and Other (No asterixis)
Psych: Calm
Results
WBC 7.4 10^3/uL (4.8-10.8) 10/04/24 06:04
Hgb 7.8 g/dL (12.0-16.0) L 10/04/24 06:04
Hct 24.1 % (37.0-47.0) L 10/04/24 06:04
MCV 91.3 fL (81.0-99.0) 10/04/24 06:04
Plt Count 129 10^3/uL (130-400) L 10/04/24 06:04
Sodium 133 mmol/L (135-145) L 10/04/24 06:04
Potassium 4.5 mmol/L (3.5-5.1) 10/04/24 06:04
Chloride 97 mmol/L (98-107) L 10/04/24 06:04
Carbon Dioxide 30 mmol/L (22-30) 10/04/24 06:04
BUN 23 mg/dl (7-17) H 10/04/24 06:04
Creatinine 1.7 mg/dL (0.6-1.0) H 10/04/24 06:04
Calcium 8.8 mg/dl (8.4-10.2) 10/04/24 06:04
Diagnostic Image Results:
CXR:
IMPRESSION:
Cardiomegaly with low lung volumes and mild interstitial edema. Findings less likely represent acute multifocal infectious process. No pleural effusion.
US Abd:
Moderate ascites.
--09/09/2024 [facility] endoscopy normal duodenum, erosive gastritis friable but no active bleeding, biopsies taken. H. pylori positive status posttreatment. Portal hypertensive gastropathy in the stomach. No varices. Scarring from prior
rubber band ligation noted
--03/05/24 MRI abdomen: Cirrhotic liver with evidence of portal hypertension and ascites. Within the posterior segment of the right lobe of liver, just right lateral to the IVC, there is afocal lesion which meets MR criteria for hepatocellular
carcinoma, classified as LR 5 by LI-RADS criteria. In the lateral segment of the left lobe of the liver, there is a 10 mm lesion which is classified as LR 4, suspicious for hepatocellular carcinoma
--Upper endoscopy January 30, 2024 esophagus no varices, moderate portal hypertensive gastropathy which was friable, mild GAVE, multiple polyps in the stomach, normal duodenum. Recommend repeat endoscopy in 6 months recall placed
--01/28/2024 paracentesis: 3100cc removed
--Capsule endoscopy November 2023 Jay fresh blood proximal small bowel, single nonbleeding vascular ectasias seen. Portal hypertensive gastropathy and enteropathy. Erythematous colonic folds of unclear etiology
.--Enteroscopy December 2023 [facility] normal esophagus, 2 medium sized angioectasias ablated by APC, angiectasia in the antrum ablated, mosaic appearance in the stomach and findings compatible with portal hypertensive gastropathy
EGD Dr. Pressley 09/2023 for anemia with decompressed varices (no additional EVL) and GAVE did not look severe no APC\\
EGD 10/31/23:
A grade II varix was found in the lower third of the esophagus. It was
�� � small in diameter but had a red amparo sign on it. One band was
�� � successfully placed with complete eradication, resulting in deflation of
�� � varices. There was no bleeding at the end of the procedure.
�� � Mild portal hypertensive gastropathy was found in the gastric body.
�� � Mild gastric antral vascular ectasia without bleeding was present in the
�� � gastric antrum.
�� � The examined duodenum was normal.
EGD: 06/2022 [place]� � - Grade II esophageal varices with no stigmata of
�� � � � � � � � � � � recent bleeding.
�� � � � � � � � � � � - Portal hypertensive gastropathy.
�� � � � � � � � � � � - Multiple gastric polyps.
�� � � � � � � � � � � - Nodular mucosa in the gastric antrum.
�� � � � � � � � � � � - Normal examined duodenum.
�� � � � � � � � � � � - No specimens collected.
02/2021 EGD [facility] �- Grade I and grade II esophageal varices.
�� � � � � � � � � � � - Type 2 gastroesophageal varices (GOV2, esophageal
�� � � � � � � � � � � varices which extend along the fundus), without
�� � � � � � � � � � � bleeding.
�� � � � � � � � � � � - Nodular mucosa in the gastric antrum. Biopsied. Clip
�� � � � � � � � � � � was placed.
�� � � � � � � � � � � - Multiple gastric polyps.
�� � � � � � � � � � � - Portal hypertensive gastropathy.
�� � � � � � � � � � � - Normal duodenal bulb, first portion of the duodenum
�� � � � � � � � � � � and second portion of the duodenum
Colonoscopy: [facility] 2019
capsule [facility] 2019
Assessment / Plan
-
64 yo with hx MASH cirrhosis, ascites, HE and HCC status post TARE at [facility] 05/[address] Pressley, esophageal varices, GAVE, rectal varices, iron deficiency anemia secondary to small bowel AVMs, pulm fibrosis on chronic supplemental O2 at 4
L nasal cannula, with prior TAVR 2016 with redo at [facility] 12/2023), DM, GERD, HTN, hyperlipidemia, hypothyroidism, HH and anxiety with recent hospitalization at [facility] in at the end of August discharged on September 13 for shortness of
breath. She was found to have a hemoglobin of 6.5. She was also hypotensive and found to have sepsis related to UTI. She was transfused 2 units of packed red blood cells. She also had an endoscopy at [place] at that time that showed normal
duodenum, erosive gastritis, friable but no active bleeding. Biopsies taken positive H. pylori with treatment (finished treatment of tetracycline, bismuth, Flagyl and PPI on 09/23/2024). Portal hypertensive gastropathy in the stomach. No varices
scarring from prior rubber band ligation noted. The patient was seen afterwards by Dr. Rice but had noticed increased lower extremity swelling without weight increase. Her labs were reviewed and she had her Lasix increased from 20 mg to 40 mg
daily and continuation of her Aldactone 50 mg daily. The patient takes lactulose daily and has noticed darker stools over the past 3 weeks (note she was also on Pepto-Bismol at that time) she did have continued fatigue, some increased dyspnea on
exertion and routine lab work showed that she had a hemoglobin 6.2 as an outpatient. She had seen Dr. Pressley yesterday as an outpatient in the [place] office. She was asked to come to the emergency room for further evaluation. Patient has been
transfused 2 units packed red blood cells. Currently WBC 7.4, hemoglobin 7.8, hematocrit 24.1, MCV 91.3, MCH 29.5, platelets 129, sodium 133, potassium 4.5, chloride 97, CO2 30, BUN 23, creatinine 1.7,, alk phos 189, albumin 2.8 Glucose 135, iron
50, TIBC 308, percent iron saturation 16, ferritin 58.2, total bilirubin 0.9, direct bilirubin 0.3, AST 68, ALT 26, alk phos 189, albumin 2.8, alpha-fetoprotein 4.6. Chest x-ray shows cardiomegaly with low lung volumes and mild interstitial edema.
Findings less likely represent acute multifocal infectious process. No pleural effusions. US Abd: moderates ascites.
Impression:
-Symptomatic anemia, OB positive stool--> 3 recurrent hospitalizations. Most recent DC 09/13/24 with trf 2 units PRBC and IV iron at [facility]
-Hx of varices 2022 (Grade II varices with red amparo sign s/p one band)-> most recent EGD 09/09/24 no varices
-Portal gastropathy
-GAVE
-small bowels AVMs
-hx MASH cirrhosis
-HCC s/p TARE (05/2023-> [facility], follows with Dr. Pressley)
-Ascites
-HE, on lactolose/Xifaxan
-Hx rectal varices
-hypoalbuminemia
-hyponatremia (chronic)
other medical problems:
-pulm fibrosis
- with prior TAVR and redo 12/2023 ([facility])
-DM
-GERD
-HTN
-hyperlipidemia
-HH
-hypothyroidism
Plan:
-IR paracentesis with fluid studies and albumin
-Start Ceftriaxone 1 gm daily
-Start Octreotide, less likely variceal bleeding however can help with AVM bleeding
-Continue Pantoprazole IV BID
-Check daily CBC, CMP, D Bili, PT/INR, albumin
-Transfuse for Hgb < 7
-Clear liquid diet
-continue Lactulose/Xifaxan
-Likely EGD this admission
-Daily weights
-Continue Aldactone/Lasix for now at current dose.
-
-
Thank you for consultation and allowing me to participate in the patient's care. Please call the transportation maintenance worker GI physician during the after hours with any questions or concerns.
[2024-10-04 11:00] VITALS: BP 112/47; BP 112/55; BP 120/53; PULSE 78; PULSE 82; PULSE 89
--- NOTE | 2024-10-04 11:03 | CM ---
CM reviewed chart, patient seen bedside, initial assessment completed. Patient resides with her daughter in a two story home, four steps to enter, railings on front and back porch. Patient reports have a walker, rollator, wheelchair, home O2,
typically 4L through [place]. Patient current with [facility], will send return of care referral. Patient reports [facility] and [facility] in past. Patient confirms PCP Sally Taylor, [facility], confirms prescription coverage.
Patient denies insecurities at home, reports she has meals on wheels, (M,W,Fr), friends and family assist with transportation. CM will continue to follow for all discharge planning needs.
Plan; home with daughter, FRANDY CR[facility]
--- NOTE | 2024-10-04 11:03 | W.PN.HOSP.TC ---
Today's Communication/Plan
-
IV cipro
IRAD for paracentesis
hold diuretics
Trend cbc
clears for now
Assessment / Plan
Assessment / Plan
Severe symptomatic anemia
Acute on chronic anemia
HX Iron deficiency anemia
HX esophageal varices
- Recent EGD at [facility] with variceal bleeding per paitent.
- Blood consented
- s/p 2u of PRBC so far. Hgb at 7.8
- Clear diet
- PPI BID and octreotide gtt ongoing. Abx started
- Trend H & H
- GI consult
FONG cirrhosis
Decompensated liver cirrhosis
Ascites
- increasing abdominal swelling with some mild lower extremity
- Continue Xifaxan
- Continue spironolactone
- Continue lactulose
- US Abdomen to eval ascites with moderate ascites
- Started on cipro per Gi
- Hold diuretics for 24h as wtih CKD, anemia and plan for parecentesis.
- IR consult for evaluation of abdominal paracentesis
Hepatocellular carcinoma
Chronic HFpEF
- cont Lasix
Chronic kidney disease stage III
Aortic stenosis status post TAVR
-Continue aspirin
Essential hypertension
Orthostatic hypotension
-Continue midodrine
Type 2 diabetes
-A1C 5.7 but CKD
-hold Janumet
-Insulin sliding scale
Diabetic neuropathy
Hyperlipidemia
-Continue statin
Hypothyroidism
-Continue levothyroxine
Anxiety/depression
-Continue Ativan
-Continue bupropion
DVT Px: SCD
Code: Full
Anticipated Discharge: > 48 hours
Subjective/Interval History
-
Date of Service: October 04, 2024
states of abd distention
no abd pain
EGD 1 month at [facility] +Variceal bleeding
Objective Data
-
Labs:
Laboratory Results
10/04/24
06:04
WBC 7.4
Hgb 7.8 L
Hct 24.1 L
Plt Count 129 L
Sodium 133 L
Potassium 4.5
Chloride 97 L
Carbon Dioxide 30
BUN 23 H
Creatinine 1.7 H
Glucose 135 H
Calcium 8.8
Vital Signs:
Vital Signs
Temp Pulse Resp BP Pulse Ox
98.3 F 85 19 101/45 94
10/04/24 07:00 10/04/24 07:00 10/04/24 07:00 10/04/24 07:00 10/04/24 07:00
I&O
10/03/24 10/04/24 10/05/24
06:59 06:59 06:59
Intake Total 1240 / 1240 720 / 720
Balance 1240 / 1240 720 / 720
Physical Exam
-
General: Appears Chronically Ill
HEENT: Normocephalic, Atraumatic and Oxygen
Respiratory: Decreased Breath Sounds; Negative Clear to Auscultation or Wheezes
Cardiac: Regular Rhythm, S1/S2 and Murmur
GI: Soft, Nontender, Normal Bowel Sounds and Distended
Musculoskeletal: No Clubbing, No Cyanosis and No Edema
Neuro: Awake, Alert and No Motor Deficits
Psych: Calm
Data Reviewed
-
Total Time Spent with Patient (in minutes): 52
[2024-10-04 11:07] LABS: Glycohemoglobin (HgbA1c) 5.3 % (4.0-5.6)
[2024-10-04] MEDS: FLOVENT 44 MCG INHALER 2 PUFF INH ×2 (11:43→18:03)
[2024-10-04 12:00] LABS: Glucose - Point of Care 273 mg/dl (70-99)
[2024-10-04] MEDS: SANDOSTATIN 500.6 MCG IV (12:00)
[2024-10-04] MEDS: CIPRO 400 MG 200 IV (12:00)
[2024-10-04] MEDS: NOVOLOG FLEXPEN-LOW RESISTANCE 3 UNITS SC (12:40)
[2024-10-04 15:00] VITALS: BP 101/52; BP 104/51; BP 104/53; PULSE 76; PULSE 77; PULSE 86
[2024-10-04 16:46] LABS: Glucose - Point of Care 306 mg/dl (70-99)
[2024-10-04] MEDS: NOVOLOG FLEXPEN-LOW RESISTANCE 4 UNITS SC (16:48)
[2024-10-04] MEDS: CRESTOR 10 MG PO (17:49)
[2024-10-04 19:04] VITALS: BP 108/82
[2024-10-04] MEDS: NEURONTIN 300 MG PO (23:07)
[2024-10-04] MEDS: THERAGRAN 1 TABLET PO (23:07)
[2024-10-04] MEDS: LANTUS 0.25 UNITS SC (23:07)
[2024-10-04 23:08] VITALS: BP 106/51
[2024-10-05] MEDS: SANDOSTATIN 500.6 MCG IV ×2 (00:42→13:14)
[2024-10-05 00:47] LABS: Glucose - Point of Care 173 mg/dl (70-99)
[2024-10-05 03:47] VITALS: BP 109/57
[2024-10-05 06:00] VITALS: BMI 25.6
[2024-10-05] MEDS: SYNTHROID 224 MCG PO (06:35)
[2024-10-05 07:00] LABS: Glucose - Point of Care 125 mg/dl (70-99)
[2024-10-05 07:14] LABS: % Basophils 1.8 % (0-2); % Eosinophils 7.1 % (0-6); % Immature Granulocytes 0.6 % (0-0.5); % Lymphocytes 10.3 % (20.5-51.1); % Monocytes 19.6 % (1.7-9.3); % Neutrophils 60.6 % (42.2-75.2); Absolute Basophils 0.1 10^3/uL (0-0.2); Absolute Eosinophils 0.6 10^3/uL (0-0.7); Absolute Immature Granulocytes 0.1 10^3/uL (0-0.05); Absolute Lymphocytes 0.8 10^3/uL (1.2-3.4); Absolute Monocytes 1.6 10^3/uL (0.1-0.6); Absolute Neutrophils 4.8 10^3/uL (1.4-6.5); Hemoglobin 8.6 g/dL (12.0-16.0); Mean Corp Hgb Conc. 31.9 g/dL (33.0-37.0); Mean Corpuscular Hgb 29.6 pg (27.0-31.0); Mean Corpuscular Volume 92.8 fL (81.0-99.0); Mean Platelet Volume 9.5 fL (7.4-10.4); Nucleated Red Blood Cells % 0 %; Platelet Count 123 10^3/uL (130-400); Red Blood Cell Count 2.91 10^6/uL (4.20-5.40); White Blood Cell Count 7.9 10^3/uL (4.8-10.8)
[2024-10-05] MEDS: NOVOLOG FLEXPEN-LOW RESISTANCE SC ×2 (07:14→16:44)
[2024-10-05] MEDS: FLOVENT 44 MCG INHALER 2 PUFF INH (07:25)
[2024-10-05 07:38] LABS: ALT (SGPT) 24 U/L (0-35); AST (SGOT) 60 U/L (14-36); Albumin 2.6 g/dl (3.5-5.0); Alkaline Phosphatase 169 U/L (38-126); Blood Urea Nitrogen 21 mg/dl (7-17); Calcium 8.9 mg/dl (8.4-10.2); Carbon Dioxide 28 mmol/L (22-30); Chloride 96 mmol/L (98-107); Direct Bilirubin 0.2 mg/dl (0.0-0.4); Estimated Creatinine Clearance 32 ml/min; Glucose 110 mg/dl (70-99); Potassium 4.6 mmol/L (3.5-5.1); Sodium 132 mmol/L (135-145); Total Bilirubin 1.1 mg/dl (0.2-1.3); Total Protein 6.1 g/dl (6.3-8.2); eGFR 38.43
[2024-10-05 07:46] VITALS: BP 115/54
[2024-10-05] MEDS: XIFAXAN 550 MG PO ×2 (08:22→21:18)
[2024-10-05] MEDS: DETROL LA 4 MG PO (08:22)
[2024-10-05] MEDS: ProAmatine 5 MG PO ×2 (08:22→17:55)
[2024-10-05] MEDS: WELLBUTRIN XL (24 hour extended release) 150 MG PO (08:22)
[2024-10-05] MEDS: ASPIR LOW (ENTERIC COATED) 81 MG PO (08:23)
[2024-10-05] MEDS: VITAMIN B1 100 MG PO (08:23)
[2024-10-05] MEDS: CIPRO 400 MG 200 IV (08:23)
[2024-10-05] MEDS: PROTONIX IV 40 MG IV ×2 (08:24→21:17)
[2024-10-05] MEDS: DUPHALAC/CHRONULAC 10 GRAMS PO ×2 (08:24→21:15)
[2024-10-05] MEDS: NSS (PRESERVATIVE FREE) 10 ML IV ×2 (08:24→21:16)
[2024-10-05 11:27] VITALS: BP 104/58
--- NOTE | 2024-10-05 11:48 | W.PN.HOSP.TC ---
Today's Communication/Plan
-
IRAD for para
EGD
IV ppi
abx
hold diuretics for additional 24h.
GI recs
Assessment / Plan
Assessment / Plan
Severe symptomatic anemia
Acute on chronic anemia
HX Iron deficiency anemia
HX esophageal varices
- Recent EGD at [facility] with variceal bleeding per patient.
- Blood consented
- s/p 2u of PRBC so far. Hgb at 8.6
- NPO. Plan for EGD today.
- PPI BID and octreotide gtt ongoing. Abx started
- Trend H & H
- GI consult
FONG cirrhosis
Decompensated liver cirrhosis
Ascites
- increasing abdominal swelling with some mild lower extremity
- Continue Xifaxan
- hold spironolactone
- Continue lactulose
- US Abdomen to eval ascites with moderate ascites
- Started on cipro per Gi
- Hold diuretics for 24h as wtih CKD, anemia and plan for paracentesis.
- IR consult for evaluation of abdominal paracentesis
Hepatocellular carcinoma
Chronic HFpEF
- hold Lasix
Chronic kidney disease stage III
-trend cr at 1.5. probably at baseline
Aortic stenosis status post TAVR
-Continue aspirin
Essential hypertension
Orthostatic hypotension
-Continue midodrine
Type 2 diabetes
-A1C 5.7 but CKD
-hold Janumet
-Insulin sliding scale
Diabetic neuropathy
Hyperlipidemia
-Continue statin
Hypothyroidism
-Continue levothyroxine
Anxiety/depression
-Continue Ativan
-Continue bupropion
DVT Px: SCD
Code: Full
Anticipated Discharge: 24 - 48 hours
Subjective/Interval History
-
Date of Service: October 05, 2024
denies abd pain or nausea or vomiting
Objective Data
-
Labs:
Laboratory Results
10/05/24
06:47
WBC 7.9
Hgb 8.6 L
Hct 27.0 L
Plt Count 123 L
Sodium 132 L
Potassium 4.6
Chloride 96 L
Carbon Dioxide 28
BUN 21 H
Creatinine 1.5 H
Glucose 110 H
Calcium 8.9
Total Bilirubin 1.1
AST 60 H
ALT 24
Alkaline Phosphatase 169 H
Vital Signs:
Vital Signs
Temp Pulse Resp BP Pulse Ox
98.1 F 81 18 104/58 95
10/05/24 11:27 10/05/24 11:27 10/05/24 11:27 10/05/24 11:27 10/05/24 11:27
I&O
10/04/24 10/05/24 10/06/24
06:59 06:59 06:59
Intake Total 1240 / 1240 960 / 960
Balance 1240 / 1240 960 / 960
Physical Exam
-
General: Appears Chronically Ill
HEENT: Normocephalic, Atraumatic and Oxygen
Respiratory: Decreased Breath Sounds; Negative Clear to Auscultation or Wheezes
Cardiac: Regular Rhythm, S1/S2 and Murmur
GI: Soft, Nontender, Normal Bowel Sounds and Distended (+fluid wave )
Musculoskeletal: No Clubbing, No Cyanosis and No Edema
Neuro: Awake, Alert and No Motor Deficits
Psych: Calm
Data Reviewed
-
Total Time Spent with Patient (in minutes): 53
[2024-10-05 12:16] LABS: Glucose - Point of Care 157 mg/dl (70-99)
[2024-10-05] MEDS: NOVOLOG FLEXPEN-LOW RESISTANCE 1 UNITS SC (12:28)
[2024-10-05 15:55] VITALS: BP 107/53
[2024-10-05 16:38] LABS: Glucose - Point of Care 126 mg/dl (70-99)
[2024-10-05] MEDS: CRESTOR 10 MG PO (17:55)
[2024-10-05 19:30] VITALS: BP 111/55
[2024-10-05] MEDS: FLOVENT 44 MCG INHALER INH (19:50)
[2024-10-05 20:29] LABS: Glucose - Point of Care 295 mg/dl (70-99)
[2024-10-05] MEDS: LANTUS 0.25 UNITS SC (21:18)
[2024-10-05] MEDS: NEURONTIN 300 MG PO (21:19)
[2024-10-05] MEDS: THERAGRAN 1 TABLET PO (21:19)
[2024-10-05 23:18] VITALS: BP 110/44
[2024-10-06] VITALS (11 sets, daily range): BP systolic 78–122; BP diastolic 44–62; PULSE 84; O2SAT 95; BMI 25.7
[2024-10-06] MEDS: ATIVAN 0.5 MG PO (00:23)
[2024-10-06] MEDS: SYNTHROID 112 MCG PO (05:40)
[2024-10-06 07:18] LABS: Glucose - Point of Care 139 mg/dl (70-99)
[2024-10-06] MEDS: NOVOLOG FLEXPEN-LOW RESISTANCE SC ×2 (07:28→11:46)
[2024-10-06] MEDS: FLOVENT 44 MCG INHALER 2 PUFF INH ×2 (07:42→19:25)
[2024-10-06] MEDS: DUPHALAC/CHRONULAC 10 GRAMS PO ×2 (07:56→20:24)
[2024-10-06] MEDS: CIPRO 400 MG IV (07:56)
[2024-10-06] MEDS: DETROL LA 4 MG PO (07:57)
[2024-10-06] MEDS: PROTONIX IV 40 MG IV ×2 (07:58→20:24)
[2024-10-06] MEDS: WELLBUTRIN XL (24 hour extended release) 150 MG PO (07:58)
[2024-10-06] MEDS: ProAmatine 5 MG PO ×3 (07:58→20:22)
[2024-10-06] MEDS: NSS (PRESERVATIVE FREE) 10 ML IV ×2 (07:58→20:25)
[2024-10-06] MEDS: XIFAXAN 550 MG PO ×2 (07:58→20:25)
[2024-10-06] MEDS: VITAMIN B1 100 MG PO (07:58)
[2024-10-06] MEDS: ASPIR LOW (ENTERIC COATED) 81 MG PO (07:58)
[2024-10-06 08:26] LABS: Hematocrit 26.3 % (37.0-47.0); Mean Corp Hgb Conc. 30.4 g/dL (33.0-37.0); Mean Corpuscular Hgb 28.7 pg (27.0-31.0); Mean Corpuscular Volume 94.3 fL (81.0-99.0); Mean Platelet Volume 9.5 fL (7.4-10.4); Platelet Count 98 10^3/uL (130-400); Red Blood Cell Count 2.79 10^6/uL (4.20-5.40); Red Cell Dist. Width 18.6 % (11.5-14.5); White Blood Cell Count 7.2 10^3/uL (4.8-10.8)
[2024-10-06 08:46] LABS: Blood Urea Nitrogen 18 mg/dl (7-17); Calcium 8.3 mg/dl (8.4-10.2); Carbon Dioxide 27 mmol/L (22-30); Chloride 101 mmol/L (98-107); Estimated Creatinine Clearance 30 ml/min; Glucose 122 mg/dl (70-99); Potassium 4.2 mmol/L (3.5-5.1); Sodium 135 mmol/L (135-145); eGFR 35.57
[2024-10-06] MEDS: CIPRO 400 MG 200 IV (10:25)
[2024-10-06 10:31] LABS: Body Fluid Albumin < 1.0 g/dl; Body Fluid Amylase < 30 U/L; Body Fluid LDH < 90 U/L; Body Fluid Protein < 2.0 g/dl
[2024-10-06 11:35] LABS: Glucose - Point of Care 125 mg/dl (70-99)
[2024-10-06 11:50] LABS: Body Fluid WBC 142 /CUMM
[2024-10-06 11:51] LABS: Body Fluid Mononuclear 94.4 %; Body Fluid Polymorphonuclear 5.6 %
--- NOTE | 2024-10-06 12:44 | CM ---
Chart reviewed.
Per PT/OT, no skilled rehab needs. Rec HH, [facility]
Plan of care ongoing
[facility]

Plan: Home w/ FRANDY thru [facility]
[2024-10-06 13:50] LABS: Body Fluid Second Tech RP
--- NOTE | 2024-10-06 15:23 | W.PN.HOSP.TC ---
Today's Communication/Plan
-
see plan above
Assessment / Plan
Assessment / Plan
Severe symptomatic anemia
Acute on chronic anemia
HX Iron deficiency anemia
HX esophageal varices
- Recent EGD at [facility] with variceal bleeding per patient.
- s/p 2u of PRBC so far. Hgb at 8.0
- s/p EGD 10/0524 Grade I esophageal varices. Small not amenable to
banding.
- Gastric antral vascular ectasia without bleeding.
Treated with argon plasma coagulation (APC).
- Normal examined duodenum.
- cw PPI BID Abx started
- Trend H & H
- GI following
FONG cirrhosis
Decompensated liver cirrhosis
Ascites
- increasing abdominal swelling with some mild lower extremity
- Continue Xifaxan
- hold spironolactone
- Continue lactulose
- US Abdomen to eval ascites with moderate ascites
- Started on cipro per Gi
- Hold diuretics for 24h as with CKD, anemia and plan for paracentesis.
- s/p paracentesis today -follow lab data on fluid
Hepatocellular carcinoma
Chronic HFpEF
- hold Lasix
PF - no flare
Chronic hypoxic respiratory failure -on home o2 -continue - no acute decompensation
Chronic kidney disease stage III
-trend cr at 1.5. probably at baseline
Aortic stenosis status post TAVR
-Continue aspirin
Essential hypertension
Orthostatic hypotension
-Continue midodrine
Type 2 diabetes
-A1C 5.7 but CKD
-hold Janumet
-Insulin sliding scale
Diabetic neuropathy
Hyperlipidemia
-Continue statin
Hypothyroidism
-Continue levothyroxine
Anxiety/depression
-Continue Ativan
-Continue bupropion
DVT Px: SCD
Code: Full
Anticipated Discharge: Within 24 hours
Subjective/Interval History
-
Date of Service: October 06, 2024
Back from paracentesis. Last paracentesis she remembers being in February of this year.
Denies any abdominal pain.
She complains of back pain which she developed with transfer to [facility] during transports to [facility].
Objective Data
-
Labs:
Laboratory Results
10/06/24
06:36
WBC 7.2
Hgb 8.0 L
Hct 26.3 L
Plt Count 98 L D
Sodium 135
Potassium 4.2
Chloride 101
Carbon Dioxide 27
BUN 18 H
Creatinine 1.6 H
Glucose 122 H
Calcium 8.3 L
Vital Signs:
Vital Signs
Temp Pulse Resp BP Pulse Ox
97.4 F 82 20 115/62 99
10/06/24 11:37 10/06/24 11:37 10/06/24 11:37 10/06/24 11:37 10/06/24 11:37
I&O
10/05/24 10/06/24 10/07/24
06:59 06:59 06:59
Intake Total 960 / 960 1560 / 1560
Balance 960 / 960 1560 / 1560
Review of Systems
-
Constitutional: Denies Fever
Respiratory: Denies Trouble Breathing
Cardiac: Denies Chest Pain
Abdomen/GI: Denies Abdominal Pain, Nausea or Vomiting
Neuro: Denies Dizzy
Physical Exam
-
General: No Apparent Distress
HEENT: Moist Mucous Membranes
Respiratory: Crackles (BL lower zones -chronic per pt ; known PF on home o2) and Non Labored Respirations; Negative Wheezes or Accessory Resp Muscle Use
Cardiac: Regular Rhythm and S1/S2
GI: Soft, Nontender, Normal Bowel Sounds and Distended
Neuro: AO x 3; Negative Tremors
Psych: Negative Confused
Data Reviewed
-
Labs: Labs Reviewed by me
--- NOTE | 2024-10-06 15:31 | W.PN.GI.CBS2 ---
Addendum entered and electronically signed by Julieta Vicente Do, MD 10/06/24 15:42:
Appt made for 10/21 at 1130am with Bea SALCEDO NP. D/c paperwork updated
Original Note:
Today's Communication / Plan
-
Paracentesis today with 1.7L removed neg for SBP
Ok from GI perspective for hosp d/c today
Will arrange OP FU with Dr Rice. Advise her to FU with Dr Diggs/mica laminating machine feeder as well
GI will sign off pleas call for ?
Assessment / Plan
-
64 yo with hx MASH cirrhosis, ascites, HE and HCC status post TARE at [facility] 05/[address] Pressley, esophageal varices, GAVE, rectal varices, iron deficiency anemia secondary to small bowel AVMs, pulm fibrosis on chronic supplemental O2 at 4
L nasal cannula, with prior TAVR 2016 with redo at [facility] 12/2023), DM, GERD, HTN, hyperlipidemia, hypothyroidism, HH and anxiety with recent hospitalization at [facility] in at the end of August discharged on September 13 for shortness of
breath. She was found to have a hemoglobin of 6.5. She was also hypotensive and found to have sepsis related to UTI. She was transfused 2 units of packed red blood cells. She also had an endoscopy at [place] at that time that showed normal
duodenum, erosive gastritis, friable but no active bleeding. Biopsies taken positive H. pylori with treatment (finished treatment of tetracycline, bismuth, Flagyl and PPI on 09/23/2024). Portal hypertensive gastropathy in the stomach. No varices
scarring from prior rubber band ligation noted. The patient was seen afterwards by Dr. Rice but had noticed increased lower extremity swelling without weight increase. Her labs were reviewed and she had her Lasix increased from 20 mg to 40 mg
daily and continuation of her Aldactone 50 mg daily. The patient takes lactulose daily and has noticed darker stools over the past 3 weeks (note she was also on Pepto-Bismol at that time) she did have continued fatigue, some increased dyspnea on
exertion and routine lab work showed that she had a hemoglobin 6.2 as an outpatient. She had seen Dr. Pressley yesterday as an outpatient in the [place] office. She was asked to come to the emergency room for further evaluation. Patient has been
transfused 2 units packed red blood cells. Currently WBC 7.4, hemoglobin 7.8, hematocrit 24.1, MCV 91.3, MCH 29.5, platelets 129, sodium 133, potassium 4.5, chloride 97, CO2 30, BUN 23, creatinine 1.7,, alk phos 189, albumin 2.8 Glucose 135, iron
50, TIBC 308, percent iron saturation 16, ferritin 58.2, total bilirubin 0.9, direct bilirubin 0.3, AST 68, ALT 26, alk phos 189, albumin 2.8, alpha-fetoprotein 4.6. Chest x-ray shows cardiomegaly with low lung volumes and mild interstitial edema.
Findings less likely represent acute multifocal infectious process. No pleural effusions. US Abd: moderates ascites.
Impression:
-Symptomatic anemia, OB positive stool--> 3 recurrent hospitalizations. Most recent DC 09/13/24 with trf 2 units PRBC and IV iron at [facility]
EGD 10/05 with GAVE s/p APC
-Hx of varices 2022 (Grade II varices with red amparo sign s/p one band)-> most recent EGD 09/09/24 no varices
-Portal gastropathy
-GAVE
-small bowels AVMs
-hx MASH cirrhosis
-HCC s/p TARE (05/2023-> [facility], follows with Dr. Pressley)
-Ascites
-HE, on lactolose/Xifaxan
-Hx rectal varices
-hypoalbuminemia
-hyponatremia (chronic)
-pulm fibrosis
- with prior TAVR and redo 12/2023 ([facility])
-DM
-GERD
-HTN
-hyperlipidemia
-HH
-hypothyroidism
Plan:
-IR paracentesis of 1.7L today with fluid studies neg for SPB
-Continue Pantoprazole IV BID
-Tolerating regular diet
-H/H stable, advise her to FU with mica laminating machine feeder for perioidic IV iron or transfusions PRN basis
-continue Lactulose/Xifaxan
-Daily weights
-Continue Aldactone/Lasix for now at current dose.
Ok from GI perspective for hosp d/c today. Request sent to our office to call her to arrange OP FU with Dr Rice
Will sign off please call for ?
Subjective
Subjective
Date of Service: October 06, 2024
Denies abd pain. Tolerating diet. Had paracentesis this AM 1.7L removed neg for SBP
Objective
Data Reviewed
Laboratory Data:
Laboratory Results
10/06/24 06:36
10/06/24 06:36
Laboratory Results
Total Bilirubin 1.1 mg/dl (0.2-1.3) 10/05/24 06:47
AST 60 U/L (14-36) H 10/05/24 06:47
ALT 24 U/L (0-35) 10/05/24 06:47
Alkaline Phosphatase 169 U/L (38-126) H 10/05/24 06:47
Vital Signs and I&O:
Vital Signs
Temp Pulse Resp BP Pulse Ox
97.4 F 82 20 115/62 99
10/06/24 11:37 10/06/24 11:37 10/06/24 11:37 10/06/24 11:37 10/06/24 11:37
I&O
10/05/24 10/06/24 10/07/24
06:59 06:59 06:59
Intake Total 960 / 960 1560 / 1560
Balance 960 / 960 1560 / 1560
Physical Exam
Physical Exam
GEN: No acute distress, conversant, pleasant
HEENT: anicteric, extraocular movements intact, clear oropharynx without exudates
GI: soft, non-distended, not tender to palpation, normal active bowel sounds, no hepatosplenomegaly
EXT: warm, well perfused, trace edema bilaterally
NEURO: AAOx3, non-focal
[2024-10-06 16:39] LABS: Glucose - Point of Care 202 mg/dl (70-99)
[2024-10-06] MEDS: NOVOLOG FLEXPEN-LOW RESISTANCE 2 UNITS SC (17:05)
[2024-10-06] MEDS: CRESTOR 10 MG PO (17:06)
[2024-10-06 20:43] LABS: Glucose - Point of Care 225 mg/dl (70-99)
[2024-10-06] MEDS: TYLENOL 650 MG PO (21:43)
[2024-10-06] MEDS: LANTUS 0.25 UNITS SC (21:44)
[2024-10-06] MEDS: NEURONTIN 300 MG PO (21:45)
[2024-10-06] MEDS: THERAGRAN 1 TABLET PO (21:45)
[2024-10-06] MEDS: LIDOCAINE 4% PATCH 1 PATCH TOPICAL (21:46)
[2024-10-07 03:28] VITALS: BP 110/50
[2024-10-07] MEDS: SYNTHROID 112 MCG PO (05:50)
[2024-10-07 06:00] VITALS: BMI 24.9
[2024-10-07 07:10] LABS: Glucose - Point of Care 164 mg/dl (70-99)
[2024-10-07 07:40] VITALS: BP 91/49
[2024-10-07] MEDS: DUPHALAC/CHRONULAC 10 GRAMS PO ×2 (08:25→20:53)
[2024-10-07] MEDS: NSS (PRESERVATIVE FREE) 10 ML IV (08:26)
[2024-10-07] MEDS: ProAmatine 5 MG PO ×3 (08:26→17:38)
[2024-10-07] MEDS: PROTONIX IV 40 MG IV (08:26)
[2024-10-07] MEDS: WELLBUTRIN XL (24 hour extended release) 150 MG PO (08:26)
[2024-10-07] MEDS: DETROL LA 4 MG PO (08:26)
[2024-10-07] MEDS: VITAMIN B1 100 MG PO (08:26)
[2024-10-07] MEDS: ASPIR LOW (ENTERIC COATED) 81 MG PO (08:26)
[2024-10-07] MEDS: CIPRO 400 MG 200 IV (08:26)
[2024-10-07] MEDS: XIFAXAN 550 MG PO ×2 (08:26→20:54)
[2024-10-07] MEDS: FLOVENT 44 MCG INHALER 2 PUFF INH ×2 (08:41→19:39)
[2024-10-07 08:43] LABS: Hematocrit 25.7 % (37.0-47.0); Hemoglobin 8.1 g/dL (12.0-16.0); Mean Corp Hgb Conc. 31.5 g/dL (33.0-37.0); Mean Corpuscular Hgb 29.3 pg (27.0-31.0); Mean Corpuscular Volume 93.1 fL (81.0-99.0); Mean Platelet Volume 9.7 fL (7.4-10.4); Platelet Count 89 10^3/uL (130-400); Red Blood Cell Count 2.76 10^6/uL (4.20-5.40); Red Cell Dist. Width 17.8 % (11.5-14.5)
[2024-10-07 08:55] LABS: Blood Urea Nitrogen 17 mg/dl (7-17); Calcium 8.3 mg/dl (8.4-10.2); Carbon Dioxide 26 mmol/L (22-30); Chloride 100 mmol/L (98-107); Estimated Creatinine Clearance 32 ml/min; Glucose 134 mg/dl (70-99); Potassium 4.2 mmol/L (3.5-5.1); Sodium 133 mmol/L (135-145); eGFR 38.43
[2024-10-07] MEDS: NOVOLOG FLEXPEN-LOW RESISTANCE SC ×2 (09:12→11:38)
[2024-10-07 11:30] LABS: Glucose - Point of Care 185 mg/dl (70-99)
--- NOTE | 2024-10-07 12:29 | PN.CDI ---
CDI
- -
CDI:
Physician Documentation Request
Admit Date: 10/03/24 17:13
Dear Doctor Dilip,
Patient admitted with severe symptomatic anemia.
Na levels documented below:
Laboratory Tests
10/04/24 10/05/24 10/07/24
06:04 06:47 07:36
Sodium 133 L 132 L 133 L
Based on the above, please clarify in the progress notes, the appropriate diagnosis, if significant, that supports the above abnormalities and additional evaluation, monitoring and/or treatment rendered:
Hyponatremia
Insignificant abnormal lab findings
Other
Use of terms such as suspected, likely, concern for, or probable (associated with a specific diagnosis that is being evaluated, monitored, or treated as if it exists) are acceptable and can be coded in the inpatient setting, when documented at the
time of discharge.
Thank you,
Susana JHAVERI,RN,CCDS
CDI Specialist
Available via [place] text
Please use your independent medical judgment in providing your response.
--- NOTE | 2024-10-07 12:42 | PN.CDI ---
CDI
- -
CDI:
Physician Documentation Request
Admit Date: 10/03/24 17:13
Dear Doctor Dilip,
Patient admitted with severe symptomatic anemia.
Platelet counts documented below:
Laboratory Tests'
10/04/24 10/05/24 10/06/24
06:04 06:47 06:36
Plt Count 129 L 123 L 98 L D
10/07/24
07:36
Plt Count 89 L
Based on the above, please clarify in the progress notes, the appropriate diagnosis, if significant, that supports the above abnormalities and additional evaluation, monitoring and/or treatment rendered:
Thrombocytopenia
Insignificant abnormal lab findings
Other
Use of terms such as suspected, likely, concern for, or probable (associated with a specific diagnosis that is being evaluated, monitored, or treated as if it exists) are acceptable and can be coded in the inpatient setting, when documented at the
time of discharge.
Thank you,
Susana JESSICAN,RN,CCDS
CDI Specialist
Available via [place] text
Please use your independent medical judgment in providing your response.
[2024-10-07 13:02] VITALS: BP 100/56; BP 114/51; PULSE 71; O2SAT 96
--- NOTE | 2024-10-07 14:48 | W.PN.HOSP.TC ---
Addendum entered and electronically signed by Mannie Cherry MD 10/20/24 18:22:
Low platelets suggestive of thrombocytopenia
Original Note:
Today's Communication/Plan
-
DC
Assessment / Plan
Assessment / Plan
Severe symptomatic anemia
Acute on chronic anemia
HX Iron deficiency anemia
HX esophageal varices
- Recent EGD at [facility] with variceal bleeding per patient.
- s/p 2u of PRBC so far. Hgb at 8.1
- s/p EGD 10/0524 Grade I esophageal varices. Small not amenable to
banding.
- Gastric antral vascular ectasia without bleeding.
Treated with argon plasma coagulation (APC).
- Normal examined duodenum.
- cw PPI BID
- Abx prophylaxis in setting of GI bleed started
FONG cirrhosis
Decompensated liver cirrhosis
Ascites
- increasing abdominal swelling with some mild lower extremity
- Continue Xifaxan
- hold spironolactone
- Continue lactulose
- US Abdomen to eval ascites with moderate ascites
- Started on cipro per Gi
- s/p paracentesis today -no SBP based on cell count
- Restart diuretics and watch creatinine closely which is improving
Hepatocellular carcinoma
Chronic HFpEF
- Resume Lasix
PF - no flare
Chronic hypoxic respiratory failure -on home o2 -continue - no acute decompensation
Chronic kidney disease stage III
-trend cr at 1.5. baseline 1.0 -1 .4 in recent months
Aortic stenosis status post TAVR
-Continue aspirin
Essential hypertension
Orthostatic hypotension
-Continue midodrine
Type 2 diabetes
-A1C 5.7
-resume Janumet
Diabetic neuropathy
Hyperlipidemia
-Continue statin
Hypothyroidism
-Continue levothyroxine
Anxiety/depression
-Continue Ativan
-Continue bupropion
DVT Px: SCD
Code: Full
DC home after PT eval
Anticipated Discharge: Today
Subjective/Interval History
-
Date of Service: October 07, 2024
Pt with some back discomfort since pulling her back during one of her transfers from bed.
Feels breathing is okay on her home O2 of 4 L.
Denies any nausea vomiting or abdominal pain.
Has not done much out of the bed yet. Await PT eval.
Patient was seen by me this morning.
Objective Data
-
Labs:
Laboratory Results
10/07/24
07:36
WBC 9.0
Hgb 8.1 L
Hct 25.7 L
Plt Count 89 L
Sodium 133 L
Potassium 4.2
Chloride 100
Carbon Dioxide 26
BUN 17
Creatinine 1.5 H
Glucose 134 H
Calcium 8.3 L
Vital Signs:
Vital Signs
Temp Pulse Resp BP Pulse Ox
98.5 F 76 16 114/51 96
10/07/24 07:40 10/07/24 08:42 10/07/24 08:42 10/07/24 13:00 10/07/24 08:42
I&O
10/06/24 10/07/24 10/08/24
06:59 06:59 06:59
Intake Total 1560 / 1560
Balance 1560 / 1560
Review of Systems
-
Constitutional: Denies Fever or Chills
Cardiac: Denies Chest Pain or Palpitations
Neuro: Denies Dizzy or Headache
Physical Exam
-
General: No Apparent Distress
HEENT: Moist Mucous Membranes
Respiratory: Crackles (as before) and Non Labored Respirations; Negative Wheezes or Accessory Resp Muscle Use
Cardiac: Regular Rhythm and S1/S2; Negative Tachycardic
GI: Soft, Nontender, Normal Bowel Sounds and Distended
Neuro: AO x 3
Psych: Calm; Negative Confused
Data Reviewed
-
Labs: Labs Reviewed by me
[2024-10-07 15:00] VITALS: BP 113/55
--- NOTE | 2024-10-07 15:28 | CM ---
Per hospitalist, pt can d/c once PT evaluation. Currently recommending SNF.
Discussed w/ pt re SNF, pt declines SNF and wants to cont. w/ home PT through [facility] who she is current w/ for services.
Pt stated she is agreeable to d/c today, her daughter will transport her home
IMM reviewed, pt given copy. Copy placed in chart
Updated hospitalist
[facility]

Plan: Home w/ [facility]
[2024-10-07 16:44] LABS: Glucose - Point of Care 251 mg/dl (70-99)
[2024-10-07] MEDS: CRESTOR 10 MG PO (17:39)
[2024-10-07] MEDS: NOVOLOG FLEXPEN-LOW RESISTANCE 3 UNITS SC (17:39)
[2024-10-07] MEDS: PROTONIX 40 MG PO (20:55)
[2024-10-07] MEDS: LIDOCAINE 4% PATCH 1 PATCH TOPICAL (20:55)
[2024-10-07] MEDS: NEURONTIN 300 MG PO (20:56)
[2024-10-07] MEDS: THERAGRAN 1 TABLET PO (20:56)
[2024-10-07 21:21] LABS: Glucose - Point of Care 235 mg/dl (70-99)
[2024-10-07] MEDS: LANTUS 0.25 UNITS SC (21:23)
[2024-10-07 23:05] VITALS: BP 119/56
[2024-10-08] MEDS: SYNTHROID 112 MCG PO (05:06)
[2024-10-08] MEDS: TYLENOL 650 MG PO (05:49)
[2024-10-08 06:00] VITALS: BMI 24.6
[2024-10-08] MEDS: LIDOCAINE 4% PATCH 1 PATCH TOPICAL (06:03)
--- NOTE | 2024-10-08 06:15 | DOWNTIME ---
There was a [employer] Client [employer]ailer Downtime on 10/08/2024 from 0100 to 10/08/2024 at 0350. Downtime documentation of patient's care, including medication administrations, has been reconciled in the electronic record per guidelines. Refer to the
patient's paper chart under the miscellaneous tab to see printed paper medication records and downtime forms.
[2024-10-08 07:00] VITALS: BP 110/45
[2024-10-08 07:34] LABS: Hemoglobin 7.7 g/dL (12.0-16.0); Mean Corp Hgb Conc. 30.8 g/dL (33.0-37.0); Mean Corpuscular Hgb 29.1 pg (27.0-31.0); Mean Corpuscular Volume 94.3 fL (81.0-99.0); Mean Platelet Volume 10.2 fL (7.4-10.4); Platelet Count 85 10^3/uL (130-400); Red Blood Cell Count 2.65 10^6/uL (4.20-5.40); Red Cell Dist. Width 17.5 % (11.5-14.5); White Blood Cell Count 7.9 10^3/uL (4.8-10.8)
[2024-10-08 07:48] LABS: Blood Urea Nitrogen 16 mg/dl (7-17); Calcium 8.3 mg/dl (8.4-10.2); Carbon Dioxide 26 mmol/L (22-30); Chloride 100 mmol/L (98-107); Estimated Creatinine Clearance 37 ml/min; Glucose 204 mg/dl (70-99); Potassium 3.8 mmol/L (3.5-5.1); Sodium 131 mmol/L (135-145); eGFR 45.63
[2024-10-08] MEDS: FLOVENT 44 MCG INHALER 2 PUFF INH (08:23)
[2024-10-08 08:33] LABS: Glucose - Point of Care 169 mg/dl (70-99)
[2024-10-08] MEDS: XIFAXAN 550 MG PO (08:44)
[2024-10-08] MEDS: DUPHALAC/CHRONULAC 10 GRAMS PO (08:44)
[2024-10-08] MEDS: DETROL LA 4 MG PO (08:44)
[2024-10-08] MEDS: ASPIR LOW (ENTERIC COATED) 81 MG PO (08:45)
[2024-10-08] MEDS: NOVOLOG FLEXPEN-LOW RESISTANCE 1 UNITS SC (08:45)
[2024-10-08] MEDS: CIPRO 400 MG 200 IV (08:45)
[2024-10-08] MEDS: VITAMIN B1 100 MG PO (08:45)
[2024-10-08] MEDS: WELLBUTRIN XL (24 hour extended release) 150 MG PO (08:46)
[2024-10-08] MEDS: LASIX 40 MG PO (08:46)
[2024-10-08] MEDS: PROTONIX 40 MG PO (08:46)
[2024-10-08] MEDS: ProAmatine 5 MG PO ×2 (08:46→12:39)
[2024-10-08] MEDS: ALDACTONE 50 MG PO (08:46)
[2024-10-08 11:52] LABS: Glucose - Point of Care 230 mg/dl (70-99)
--- NOTE | 2024-10-08 11:56 | CM ---
Chart reviewed. PT/OT cont. to recommend SNF.
Discussed w/ pt at bedside, pt cont. to decline SNF and would like to go home and cont. w/ [facility]
Pt lives w/ her daughter, CM explained the goal of a safe d/c plan and want to ensure pt is getting the appropriate services considering [facility] will only see pt 2-3 times a week. Pt understood this and is cont. to share she wants to d/c home.
Per pt, her daughter will transport home
Updated hospitalist, updated [facility]
IMM on chart
[facility]
- FAX D/C INSTRUCTIONS
Plan: Home; [facility] w/ [facility]
[2024-10-08 12:00] VITALS: BP 108/43
[2024-10-08] MEDS: NOVOLOG FLEXPEN-LOW RESISTANCE 2 UNITS SC (12:40)
--- NOTE | 2024-10-08 13:42 | W.PN.HOSP.TC ---
Addendum entered and electronically signed by Mannie Cherry MD 10/20/24 18:25:
Low sodium suggestive of hyponatremia
Original Note:
Today's Communication/Plan
-
dc
Assessment / Plan
Assessment / Plan
Severe symptomatic anemia
Acute on chronic anemia
HX Iron deficiency anemia
HX esophageal varices
- Recent EGD at [facility] with variceal bleeding per patient.
- s/p 2u of PRBC so far. Hgb at 7.7;no significant change
- s/p EGD 10/0524 Grade I esophageal varices. Small not amenable to
banding.
- Gastric antral vascular ectasia without bleeding.
Treated with argon plasma coagulation (APC).
- Normal examined duodenum.
- cw PPI BID
- Abx prophylaxis in setting of GI bleed started
FONG cirrhosis
Decompensated liver cirrhosis
Ascites
- increasing abdominal swelling with some mild lower extremity
- Continue Xifaxan
- hold spironolactone
- Continue lactulose
- US Abdomen to eval ascites with moderate ascites
- Started on cipro per Gi
- s/p paracentesis today -no SBP based on cell count
- Restarted diuretics - improved cr and BP stable
Hepatocellular carcinoma
Chronic HFpEF
- Resumed Lasix
PF - no flare
Chronic hypoxic respiratory failure -on home o2 -continue - no acute decompensation
Chronic kidney disease stage III
-trend cr at 1.3 baseline 1.0 -1 .4 in recent months
Aortic stenosis status post TAVR
-Continue aspirin
Essential hypertension
Orthostatic hypotension
-Continue midodrine
Type 2 diabetes
-A1C 5.7
-resume Janumet
Diabetic neuropathy
Hyperlipidemia
-Continue statin
Hypothyroidism
-Continue levothyroxine
Anxiety/depression
-Continue Ativan
-Continue bupropion
DVT Px: SCD
Code: Full
Patient continues to decline rehab. Wants to go home with services. She understands the benefit of SNF ;she understand risks of fall if due to strength and balance issues.
DW will arrange home services
DC home today.
Total time of dc 32 min
Anticipated Discharge: Today
Subjective/Interval History
-
Date of Service: October 08, 2024
Feeling ok.Some neck discomfort from position.
Breathing comfortable on 4 L of oxygen which is her home O2. Denies any cough or shortness of breath.
No chest pain or palpitation.
No abdominal pain. No nausea. Tolerating diet.
She persist to decline going to rehab and wants to go home. She says she lives with daughter and she can manage with the help of the daughter and the therapies at home.
Objective Data
-
Labs:
Laboratory Results
10/08/24
05:54
WBC 7.9
Hgb 7.7 L
Hct 25.0 L
Plt Count 85 L
Sodium 131 L
Potassium 3.8
Chloride 100
Carbon Dioxide 26
BUN 16
Creatinine 1.3 H
Glucose 204 H
Calcium 8.3 L
Vital Signs:
Vital Signs
Temp Pulse Resp BP Pulse Ox
98.2 F 73 17 108/43 98
10/08/24 07:00 10/08/24 08:25 10/08/24 07:00 10/08/24 12:39 10/08/24 08:25
I&O
10/07/24 10/08/24 10/09/24
06:59 06:59 06:59
Intake Total 1819
Balance 1819
Review of Systems
-
Constitutional: Denies Fever
Neuro: Denies Dizzy
Physical Exam
-
General: No Apparent Distress
HEENT: Moist Mucous Membranes
Respiratory: Crackles (bl lower zones as before) and Non Labored Respirations; Negative Wheezes or Accessory Resp Muscle Use
Cardiac: Regular Rhythm and S1/S2
GI: Soft, Nontender and Normal Bowel Sounds
Musculoskeletal: Edema, Right Lower Extrem and Edema, Left Lower Extrem (1+)
Neuro: AO x 3; Negative Tremors
Psych: Calm; Negative Confused
Data Reviewed
-
Labs: Labs Reviewed by me
[2024-10-08 15:09] VITALS: BP 112/52
--- NOTE | 2024-10-08 15:55 | W.DCSUMMARY ---
Discharge Summary
Discharge Data
Date of Admission: 10/03/24
Date of Discharge: 10/08/24
-
Pending Results: Yes
Additional Pending Results:
Peritoneal fluid for cytology pending
Hospital Course
Primary diagnosis:
Severe symptomatic anemia
Acute on chronic anemia
History Iron deficiency anemia
History of esophageal varices with prior bleeding
Nonalcoholic steatohepatitis cirrhosis
Decompensated liver disease
Ascites needing paracentesis
Hepatocellular carcinoma s/p transarterial embolization (05/2023-> [facility], follows with Dr. Pressley)
Secondary diagnosis:
History of heart failure with preserved EF
Pulmonary fibrosis
Chronic hypoxic respiratory failure on 4 L at home
Chronic kidney disease stage III
Aortic stenosis status post TAVR
Essential hypertension
Diabetes mellitus type 2
Hospital course:
Patient with significant comorbidities was having increased dyspnea with exertion on routine labs outpatient showed hemoglobin of 6.2.
She has a prior history of decompensated liver disease including esophageal varices and bleeding. In fact she was at [facility] recently and had a hemoglobin 6.5 and had an EGD which showed erosive gastritis but no active bleeding. Portal
hypertensive gastropathy was noted in the stomach. No varices but scarring from the prior rubber banding ligation was noted.
She was admitted for anemia workup. She had transfused with 2 units of blood with improvement in hemoglobin and remained stable. She had EGD again on this admission which showed grade 1 esophageal varices small not amenable for banding. There was
gastric antral vascular ectasia without bleeding treated with argon plasma coagulation. Normal duodenum was noted. She was put on PPI. She also received antibiotic prophylaxis in the setting of GI bleed and cirrhosis.
She also has lately increasing lower extremity edema for which the diuretics dose was increased. She was noted to have ascites which was tapped here without evidence of SBP.
On presentation with anemia and GI bleed she had creatinine elevating up to 1.7 which improved to 1.3 prior to discharge. Her baseline creatinine is. 1.1-1.4. She was resumed back on diuretics prior to discharge.
She was seen by PT who recommended rehab but patient declined it and wanted to go home with services which was arranged.
Consultants on board:
GI-[facility]uli[facility] Villanueva Do
Discharge Plan
-
Patient Disposition: Home with Home Care
Discharge Diagnosis/Procedures: Severe symptomatic anemia
Acute on chronic anemia
HX Iron deficiency anemia
HX esophageal varices
FONG cirrhosis
Decompensated liver cirrhosis
Ascites s/p paracentesis on this admission
Diet: Regular and 2 Gram Sodium
Activity: As tolerated
Driving Restrictions: No driving
Bathing Restrictions: None
Blood Work: BMP and CBC in one week -arrange through your PCP
Other Services: VN and PT
Referrals:
Alea Rice MD [Active] - (10/21/24 at 1130am with Bea FAY)
Sally Taylor NP [Family Provider] - in less than 1 week
Prescriptions:
Continued
aspirin 81 MG tablet,delayed release (DR/EC)
81 mg PO DAILY
therapeutic multivitamin Tablet
1 tab PO HS
gabapentin 300 mg Capsule
300 mg PO HS
levothyroxine 112 mcg Tablet
112 mcg PO MOTUWETHFRSA
rosuvastatin 10 mg Tablet
10 mg PO QPM
Arnuity Ellipta 100 mcg/actuation Blister With Device
1 inh INHALATION R DAILY
albuterol sulfate 90 mcg/actuation Hfa Aerosol Inhaler
2 puff INHALATION R Q6HPRN PRN (Reason: sob)
coQ10 (ubiquinol) 100 mg Capsule
100 mg PO DAILY
thiamine HCl (vitamin B1) 100 mg Tablet
100 mg PO DAILY
famotidine [Pepcid] 40 mg Tablet
40 mg PO HS
furosemide [Lasix] 20 mg Tablet
40 mg PO DAILY
levothyroxine [Synthroid] 112 mcg Tablet
224 mcg PO MCCLAIN
bupropion HCl [Wellbutrin XL] 150 mg Tablet Extended Release 24 Hr
150 mg PO DAILY
lactulose 10 gram/15 mL Solution
10 g PO BID
polyethylene glycol 3350 [HealthyLax] 17 gram Powder In Packet
17 g PO DAILYPRN PRN (Reason: constipation) Qty: 0 0RF
lorazepam 0.5 mg Tablet
0.5 mg PO DAILYPRN PRN (Reason: anxiety) Qty: 3 0RF
ipratropium-albuterol 0.5 mg-3 mg(2.5 mg base)/3 mL Solution For Nebulization
3 ml inhalation R Q4HPRN PRN (Reason: shortness of breath) Qty: 60 0RF
pantoprazole [Protonix] 40 mg Tablet,Delayed Release (Dr/Ec)
40 mg PO DAILY
bismuth subsalicylate [Pepto-Bismol] 262 mg Tablet,Chewable
2 tab PO TIDPRN PRN (Reason: GERD)
spironolactone 50 mg Tablet
50 mg PO DAILY
Xifaxan 550 mg Tablet
550 mg PO BID
mirabegron [Myrbetriq] 50 mg Tablet Extended Release 24 Hr
50 mg PO DAILY
insulin glargine [Lantus Solostar U-100 Insulin] 100 unit/mL (3 mL) insulin pen
25 unit SC HS
Changed
midodrine 5 mg tablet
5 mg PO TID Qty: 90 0RF
Discontinued
insulin lispro 100 unit/mL insulin pen
12 sliding scale dose SC AC
metformin 1,000 mg tablet
1,000 mg PO BID AT 0800,1700
Discharge Orders:
Discharge Patient (As Directed); Ordered 10/08/24
Ordered By: Mannie Cherry
Discharge Date and Time
Print Language: ROMANIAN
== END 2024-10-08 16:37 | disposition home health service (06) | DRG 377 ==
LOC: 4 WEST ACU 17:13
PROVIDERS: Nurse Practitioner; Nurse Practitioner Family; Radiology Vascular & Interventional Radiology; ADMITTING PHYSICIAN Internal Medicine; ATTENDING PHYSICIAN Internal Medicine; CONSULT PHYSICIAN Internal Medicine Gastroenterology; EMERGENCY PHYSICIAN Emergency Medicine; FAMILY PHYSICIAN Internal Medicine
PROC: 30233N1 Transfusion of Nonautologous Red Blood Cells into Peripheral Vein, Percutaneous Approach (ICD-10-PCS; 2024-10-03)
PROC: 0W3P8ZZ Control Bleeding in Gastrointestinal Tract, Via Natural or Artificial Opening Endoscopic (ICD-10-PCS; 2024-10-05)
PROC: 0W9G3ZZ Drainage of Peritoneal Cavity, Percutaneous Approach (ICD-10-PCS; 2024-10-06)
DX: K31.811 Angiodysplasia of stomach and duodenum with bleeding (principal); I85.11 Secondary esophageal varices with bleeding; D62 Acute posthemorrhagic anemia; C22.0 Liver cell carcinoma; I13.0 Hypertensive heart and chronic kidney disease with heart failure and stage 1 through stage 4 chronic kidney disease, or unspecified chronic kidney disease; I50.32 Chronic diastolic (congestive) heart failure; J96.11 Chronic respiratory failure with hypoxia; R18.8 Other ascites; K76.6 Portal hypertension; E87.1 Hypo-osmolality and hyponatremia; E11.22 Type 2 diabetes mellitus with diabetic chronic kidney disease; E11.40 Type 2 diabetes mellitus with diabetic neuropathy, unspecified; E11.65 Type 2 diabetes mellitus with hyperglycemia; T38.0X5A Adverse effect of glucocorticoids and synthetic analogues, initial encounter; I35.0 Nonrheumatic aortic (valve) stenosis; F41.9 Anxiety disorder, unspecified; J84.10 Pulmonary fibrosis, unspecified; F32.A Depression, unspecified; I95.1 Orthostatic hypotension; K75.81 Nonalcoholic steatohepatitis (NASH); K74.69 Other cirrhosis of liver; K31.89 Other diseases of stomach and duodenum; E03.9 Hypothyroidism, unspecified; E87.6 Hypokalemia; E78.00 Pure hypercholesterolemia, unspecified; K21.9 Gastro-esophageal reflux disease without esophagitis; N18.30 Chronic kidney disease, stage 3 unspecified; Z95.2 Presence of prosthetic heart valve; Z88.3 Allergy status to other anti-infective agents; Z88.2 Allergy status to sulfonamides; Z88.0 Allergy status to penicillin; Z87.891 Personal history of nicotine dependence; Z79.84 Long term (current) use of oral hypoglycemic drugs; Z79.82 Long term (current) use of aspirin; Z79.4 Long term (current) use of insulin; Z79.890 Hormone replacement therapy; Z79.899 Other long term (current) drug therapy; Z99.81 Dependence on supplemental oxygen
CPT/HCPCS: 88305; 36415; 36430; 49083; 71046; 76705; 80048; 80053; 82042; 82105; 82150; 82248; 82728; 82962; 83036; 83540; 83550; 83615; 84157; 84439; 84443; 85014; 85018; 85025; 85027; 85610; 86850; 86900; 86901; 86920; 87015; 87070; 87205; 88112; 89051; 93005; 94640; 97162; 97530; 99285; P9016

== ENCOUNTER → 2024-10-15 12:51 | Outpatient (REF) | payer MEDICARE, BC, SELFPAY ==
[2024-10-15 14:20] LABS: % Basophils 1.5 % (0-2); % Immature Granulocytes 0.2 % (0-0.5); % Lymphocytes 8.5 % (20.5-51.1); % Monocytes 11.6 % (1.7-9.3); % Neutrophils 73.2 % (42.2-75.2); Absolute Basophils 0.1 10^3/uL (0-0.2); Absolute Eosinophils 0.5 10^3/uL (0-0.7); Absolute Lymphocytes 0.8 10^3/uL (1.2-3.4); Absolute Monocytes 1.1 10^3/uL (0.1-0.6); Absolute Neutrophils 6.7 10^3/uL (1.4-6.5); Hematocrit 23.3 % (37.0-47.0); Hemoglobin 7.5 g/dL (12.0-16.0); Mean Corp Hgb Conc. 32.2 g/dL (33.0-37.0); Mean Corpuscular Hgb 29.3 pg (27.0-31.0); Mean Platelet Volume 9.9 fL (7.4-10.4); Nucleated Red Blood Cells % 0 %; Platelet Count 137 10^3/uL (130-400); Red Blood Cell Count 2.56 10^6/uL (4.20-5.40); Red Cell Dist. Width 17.2 % (11.5-14.5); White Blood Cell Count 9.2 10^3/uL (4.8-10.8)
== END ==
LOC: REG 12:51
PROVIDERS: ATTENDING PHYSICIAN Internal Medicine Hematology & Oncology
DX: D50.9 Iron deficiency anemia, unspecified (principal); D47.2 Monoclonal gammopathy; E83.39 Other disorders of phosphorus metabolism
CPT/HCPCS: 36415; 85025